=== PATIENT | female | born 1985 | race Caucasian/White ===

== ENCOUNTER 2019-08-27 08:00 | Emergency (ER) | payer MEDICARE, MEDICAID, SELFPAY ==
--- NOTE | ~2019-08-27 | XR_ITS ---
EXAMINATION: XR chest 2V DATE: 08/27/2019 09:04 INDICATION: Cough and wheezing TECHNIQUE: PA and lateral views of the chest are obtained. COMPARISON: 12/18/2016 FINDINGS: The lungs are free of acute opacities. There is no pleural effusion or pneumothorax. The ca rdiomediastinal silhouette is normal. The visualized bones and soft tissues are unremarkable. Surgica l clips in the right upper quadrant are likely from prior cholecystectomy. IMPRESSION: 1. No acute cardiopulmonary abnormality. Reviewed, dictated and finalized at location [facility]. [facility]
[2019-08-27 08:29] VITALS: BP 114/68; PULSE 106; RESP 16; TEMP 37.1; O2SAT 100
--- NOTE | 2019-08-27 08:55 | ED.URI ---
HPI - URI/Sore Throat General Chief Complaint: Upper Respiratory Infection Stated Complaint: Cold/Flu Time Seen by Provider: 08/27/19 08:38 Source: patient and RN notes reviewed Mode of arrival: ambulatory Limitations: no limitations History of Present Illness HPI Narrative: Patient presents today with a 2-day history of cough, Shortness of breath, Body aches, left back pain, rhinorrhea. Denies fever. Daughter was recently diagnosed with influenza B. She does have history of asthma and COPD and continues to smoke 0.5 packs/day. She uses albuterol and Symbicort. She has tried no [id number] medication for symptoms prior to arrival. She did not receive a flu vaccine. MD elicited complaint: cough Related Data Home Medications Medication Instructions Recorded Confirmed albuterol sulfate 2 puff INHALATION QID PRN 08/27/19 08/27/19 budesonide-formoterol [Symbicort] 2 puff INHALATION Q12H 08/27/19 08/27/19 Allergies Allergy/AdvReac Type Severity Reaction Status Date / Time divalproex sodium Allergy Unknown Rash Verified 08/27/19 08:55 lamotrigine Allergy Unknown Unknown Verified 08/27/19 08:55 phenobarbital Allergy Unknown Unknown Verified 08/27/19 08:55 Sulfa (Sulfonamide Allergy Unknown Rash Verified 08/27/19 08:55 Antibiotics) Review of Systems Review of Systems: Narrative: CONSTITUTIONAL: Denies fever, chills, or sweats.+Body aches EYES: Denies visual changes, redness, or discharge. ENT: Denies congestion, sore throat, or otalgia.+Rhinorrhea CARDIOVASCULAR: Denies chest pain, palpitations, or edema. RESPIRATORY: +Cough, shortness of breath GASTROINTESTINAL: Denies abdominal pain, nausea, vomiting, or diarrhea. GENITOURINARY: Denies dysuria or hematuria. SKIN: Denies rash, itching, or wounds. MUSCULOSKELETAL: Denies joint pain, or myalgia.+Left back pain NEUROLOGIC: Denies headache, numbness, tingling, or weakness. PSYCH: Denies depression or anxiety. [facility], [facility] Past Medical History Medical History (Updated 08/27/19 @ 09:30 by Brittney Klein, HAND SPRAY OPERATOR, ) Asthma COPD (chronic obstructive pulmonary disease) Family History Family History (Updated 03/08/14 @ 17:44 by DOCTOR UNKNOWN) Mother Cerebrovascular accident Acute myocardial infarction Other Asthma Depression Diabetes mellitus Family history of seizure disorder Hypertension Social History Social History Smoking status: Smoker, status unknown Second hand tobacco smoke exposure: Yes Smoking end date: 07/04/12 Alcohol intake: never Comments At time of signature, I have reviewed and agree with nursing past medical, surgical, social and family history unless otherwise noted. Please see nursing chart for further information. There is no relevant family history pertinent to the presenting complaint Exam Narrative: Exam Narrative: GENERAL: Well-appearing, well-nourished, and in no acute distress. HEAD: Normocephalic, atraumatic. EYES: EOMI. No redness or drainage. Conjunctivae normal. ENT: Mucous membranes pink and moist. Nares clear. No rhinorrhea. TMs normal bilaterally. Throat normal. Uvula midline. NECK: Normal AROM. Supple. No lymphadenopathy. CHEST: No respiratory distress. Diminished in the left lower lobe. Inspiratory and expiratory wheezes throughout. HEART: Regular rate and rhythm. No murmur appreciated. Normal peripheral pulses. EXTREMITIES: Normal range of motion. No edema. SKIN: Warm, dry, no rash. NEURO: No focal deficits. Alert and oriented x3. Gait steady. PSYCH: Normal affect. No signs of depression or anxiety. Course Course Emergency Course: Improved after Duoneb Vital Signs Vital signs: Vital Signs Temperature 98.8 F 08/27/19 08:29 Pulse Rate 106 H 08/27/19 08:29 Respiratory Rate 16 08/27/19 08:29 Blood Pressure 114/68 08/27/19 08:29 Pulse Oximetry 100 08/27/19 08:29 Temperature 98.8 F 08/27/19 08:29 Pulse Rate 106 H 08/27/19 08:29 Respiratory Rate 16
[2019-08-27] MEDS: ALBUTEROL SULFATE NEB 2.5 MG/3 ML INH INHALATION (09:07)
[2019-08-27] MEDS: IPRATROPIUM BR 0.02% INH SOLN 0.5 MG/2.5 ML VIAL INHALATION (09:07)
== END 2019-08-27 09:33 | disposition home or self-care (01) ==
PROVIDERS: Emergency Provider Nurse Practitioner
DX: J44.1 Chronic obstructive pulmonary disease with (acute) exacerbation (principal); J06.9 Acute upper respiratory infection, unspecified
CPT/HCPCS: 71046; 87804; 94640; 99213; G0463

== ENCOUNTER 2019-08-29 08:45 | Emergency (ER) | payer MEDICARE, MEDICAID, SELFPAY ==
[2019-08-29 08:58] VITALS: BP 119/75; PULSE 102; RESP 18; TEMP 37.3; O2SAT 99
--- NOTE | 2019-08-29 09:17 | ED.URI ---
HPI - URI/Sore Throat General Chief Complaint: Upper Respiratory Infection Stated Complaint: cough runny nose and aches Time Seen by Provider: 08/29/19 09:20 Source: patient, family and RN notes reviewed Mode of arrival: ambulatory Limitations: no limitations History of Present Illness HPI Narrative: 34 year old female who presents to [facility] care accompanied by family members with increased feeling of congestion and continued cough, Patient was seen on the and patient received steroids and refill of inhalers. Patient does admit to less shortness of breath and less wheezing since being on steroids but feels that she needs antibiotic for her upper respiratory symptoms which include sinus congestion and drainage. Patient has some scattered wheezing noted on auscultation denies any acute respiratory difficulty, SaO2 99% on room air. Patient continues to use tobacco daily but has decreased in amount patient states. MD elicited complaint: fever (Low-grade), cough, rhinorrhea and nasal congestion Pertinent past history: COPD and asthma Onset (ago): day(s) (3) Consistency: constant Severity: moderate Description of mucous: yellow Able to tolerate fluids by mouth: Yes Exacerbating factors: exertion Relieving factors: other (Inhalers have helped and steroids) Context: sick contacts Associated symptoms: fever (feverish), rhinorrhea, nasal congestion, cough, shortness of breath and other (Wheezing) Treatments prior to arrival: acetaminophen, ibuprofen and other (Inhalers and steroids) Related Data Home Medications Medication Instructions Recorded Confirmed albuterol sulfate 2 puff INHALATION QID PRN 08/27/19 08/30/19 budesonide-formoterol [Symbicort] 2 puff INHALATION Q12H 08/27/19 08/30/19 Allergies Allergy/AdvReac Type Severity Reaction Status Date / Time divalproex sodium Allergy Unknown Rash Verified 08/30/19 16:21 lamotrigine Allergy Unknown Unknown Verified 08/30/19 16:21 phenobarbital Allergy Unknown Unknown Verified 08/30/19 16:21 Sulfa (Sulfonamide Allergy Unknown Rash Verified 08/30/19 16:21 Antibiotics) Review of Systems Review of Systems: Narrative: CONSTITUTIONAL: reports feels feverish , chills, or sweats. EYES: Denies visual changes, redness, or discharge. ENT: Positive rhinorrhea, congestion,no sore throat, or otalgia. CARDIOVASCULAR: Denies chest pain, palpitations, or edema. RESPIRATORY: positive cough denies any acute dyspnea at this time. GASTROINTESTINAL: Denies abdominal pain, nausea, vomiting, or diarrhea. GENITOURINARY: Denies dysuria or hematuria. SKIN: Denies rash or itching. MUSCULOSKELETAL: Denies back pain, joint pain, or myalgia. NEUROLOGIC: Denies headache, numbness, or weakness. PSYCHIATRIC: Denies anxiety or depression. All systems reviewed & are unremarkable except as noted in HPI and below PMFSH Past Medical History Medical History Asthma COPD (chronic obstructive pulmonary disease) Family History Family History Mother Cerebrovascular accident Acute myocardial infarction Other Asthma Depression Diabetes mellitus Family history of seizure disorder Hypertension Social History Social History (Updated 08/31/19 @ 09:26 by Skyla Peralta NP) Smoking status: Current every day smoker Second hand tobacco smoke exposure: Yes Alcohol intake: never Living arrangements: with family Gender identity (if verbalized by the patient): Female Comments At time of signature, agree with nursing past medical, social history. There is no relevant family history pertinent to the presenting complaint Exam Narrative: Exam Narrative: GENERAL: Well-appearing, well-nourished, and in no acute distress.anxious HEAD: Normocephalic, atraumatic. EYES: PERRLA and EOMI. ENT: Naresred, clear rhinorrhea or epistaxis. Mucous membranes moist.TM's normal with good light reflex, throa
== END 2019-08-29 09:45 | disposition home or self-care (01) ==
PROVIDERS: Emergency Provider Registered Nurse
DX: J06.9 Acute upper respiratory infection, unspecified (principal); J44.1 Chronic obstructive pulmonary disease with (acute) exacerbation; F17.200 Nicotine dependence, unspecified, uncomplicated
CPT/HCPCS: 99213; G0463

== ENCOUNTER 2019-08-30 15:53 | Emergency (ER) | payer MEDICARE, MEDICAID, SELFPAY ==
--- NOTE | 2019-08-30 16:04 | ED.URI ---
HPI - URI/Sore Throat General Chief Complaint: Upper Respiratory Infection Stated Complaint: cough Time Seen by Provider: 08/30/19 16:40 Source: patient and RN notes reviewed Mode of arrival: ambulatory Limitations: no limitations History of Present Illness HPI Narrative: 34-year-old female presents for her third in as many days for concern for cough, wheezing. Reports she started a Z-Chepe yesterday, she is almost finished with prednisone that she was prescribed on the . She reports Z-Chepe is causing diarrhea. She reports she is been using her inhalers as prescribed. She denies any improvement in symptoms. She had a negative chest x-ray earlier this week. She had a negative flu swab earlier this week. She reports other symptoms such as rhinorrhea, nasal congestion, fever have resolved. MD elicited complaint: cough Related Data Home Medications Medication Instructions Recorded Confirmed albuterol sulfate 2 puff INHALATION QID PRN 08/27/19 08/30/19 budesonide-formoterol [Symbicort] 2 puff INHALATION Q12H 08/27/19 08/30/19 Allergies Allergy/AdvReac Type Severity Reaction Status Date / Time divalproex sodium Allergy Unknown Rash Verified 08/30/19 16:21 lamotrigine Allergy Unknown Unknown Verified 08/30/19 16:21 phenobarbital Allergy Unknown Unknown Verified 08/30/19 16:21 Sulfa (Sulfonamide Allergy Unknown Rash Verified 08/30/19 16:21 Antibiotics) Review of Systems Review of Systems: Narrative: CONSTITUTIONAL: Denies malaise, chills, sweats, or fever. EYES: Denies visual changes, redness, or discharge. ENT: Denies rhinorrhea, congestion, sinus pain, otalgia and sore throat. CARDIOVASCULAR: Denies chest pain, palpitations, or edema. RESPIRATORY: Reports cough, wheezing, occasional dyspnea. GASTROINTESTINAL: Denies abdominal pain, nausea, vomiting, diarrhea SKIN: Denies rash or itching. MUSCULOSKELETAL: Denies myalgia. NEUROLOGIC: Denies headache. All systems reviewed & are unremarkable except as noted in HPI and below PMFSH Social History Social History Smoking status: Smoker, status unknown Second hand tobacco smoke exposure: Yes Smoking end date: 07/04/12 Alcohol intake: never Comments At time of signature, agree with nursing past medical, surgical, social and family history. There is no relevant family history pertinent to the presenting complaint Exam Narrative: Exam Narrative: GENERAL: Well-appearing, well-nourished, and in no acute distress. HEAD: Normocephalic EYES: PERRLA, conjunctivae clear ENT: Nares clear, turbinates erythematous, clear discharge. Mucous membranes moist. TM pearly shirley with dull light reflex bilaterally; no tragal tenderness. Oropharynx not erythematous without lesions. Tonsils not enlarged and without exudate, no drooling, no hoarseness, no trismus. NECK: Supple. No lymphadenopathy CHEST: Scattered inspiratory and expiratory wheeze, aeration fair to poor, breath sounds equal. Norhonchi, rales, or stridor. No respiratory distress, speaks in full sentences. HEART: Regular rate and rhythm. No murmur heard. SKIN: Warm, dry, no rash. NEURO: Alert and oriented x3. PSYCH: Normal mood and affect Course Course Emergency Course: Discussed with patient expected side effects of Z-Chepe and advised on ways to lessen or prevent diarrhea while taking antibiotics. Advised patient to finish Z-Chepe. Patient is aware of diagnosis, understands and agrees to treatment plan. Anticipatory guidance given. Patient agrees to follow-up as directed and is aware of reasons to seek care at the emergency department. Portions of this record may have been created with voice recognition software Reevaluation(s) Reevaluation #1: Aeration improved, aeration good, wheezing improved, scattered expiratory wheeze. Date: 08/30/19 Time: 17:30 Vital Signs Vital signs: Vital Signs Temperature 98.0 F 08/30/19 16:05 Pulse Rate 100 08/30/19 16:05 Respirator
[2019-08-30 16:05] VITALS: BP 136/66; PULSE 100; RESP 18; TEMP 36.7; O2SAT 98
[2019-08-30] MEDS: ALBUTEROL SULFATE NEB 2.5 MG/3 ML INH INHALATION (17:04)
[2019-08-30] MEDS: IPRATROPIUM BR 0.02% INH SOLN 0.5 MG/2.5 ML VIAL INHALATION (17:04)
[2019-08-30 17:25] VITALS: RESP 16; TEMP 37.5; O2SAT 97
== END 2019-08-30 17:40 | disposition home or self-care (01) ==
PROVIDERS: Emergency Provider Nurse Practitioner
DX: J44.1 Chronic obstructive pulmonary disease with (acute) exacerbation (principal)
CPT/HCPCS: 94640; 99213; G0463

== ENCOUNTER 2019-09-02 18:21 | Emergency (ER) | payer MEDICARE, MEDICAID, SELFPAY ==
--- NOTE | 2019-09-02 19:25 | PC.NURSE ---
1914 pt not in waiting room when name called. pts in waiting room state she left.
== END 2019-09-02 19:15 | disposition left against medical advice (07) ==
PROVIDERS: Emergency Provider Registered Nurse
DX: Z53.21 Procedure and treatment not carried out due to patient leaving prior to being seen by health care provider (principal)
CPT/HCPCS: 99199

== ENCOUNTER 2019-09-25 09:54 | Emergency (ER) | payer MEDICARE, MEDICAID, SELFPAY ==
[2019-09-25 09:54] VITALS: BP 130/89; PULSE 118; RESP 16; TEMP 37.5; O2SAT 98
--- NOTE | 2019-09-25 10:17 | ED.URI ---
HPI - URI/Sore Throat General Chief Complaint: Upper Respiratory Infection Stated Complaint: Sore throat/Headache Time Seen by Provider: 09/25/19 10:17 Source: patient and RN notes reviewed Mode of arrival: ambulatory Limitations: no limitations History of Present Illness HPI Narrative: 34 year old female accompanied by 2 children with complaints of sore throat, ear pain,clear nasal drainage and headache for 4 days. Patient states that son tested positive for strep 3 days ago so has had positive exposure to strep. Patient states that she has taken some Benadryl for her symptoms. Patient denies any known fevers, chills or sweats, does have history of asthma and COPD with no increase in cough or any tightness to chest uses daily inhalers as prescribed but continues to use tobacco daily. Patient rates her pain as 8/10 with increasing pain with swallowing and swollen lymph glands in her neck. MD elicited complaint: sore throat Pertinent past history: COPD and asthma Onset (ago): day(s) (4) Consistency: progressively worsening Severity: moderate Pain scale (0-10): 8 Description of mucous: clear Able to tolerate fluids by mouth: Yes Exacerbating factors: swallowing Relieving factors: nothing Context: sick contacts Associated symptoms: headache, rhinorrhea, sore throat and other (glands swelling to neck) Treatments prior to arrival: other (Benadryl) Related Data Home Medications Medication Instructions Recorded Confirmed albuterol sulfate 2 puff INHALATION QID PRN 08/27/19 09/25/19 budesonide-formoterol [Symbicort] 2 puff INHALATION Q12H 08/27/19 09/25/19 Allergies Allergy/AdvReac Type Severity Reaction Status Date / Time divalproex sodium Allergy Unknown Rash Verified 09/25/19 10:00 lamotrigine Allergy Unknown Unknown Verified 09/25/19 10:00 phenobarbital Allergy Unknown Unknown Verified 09/25/19 10:00 Sulfa (Sulfonamide Allergy Unknown Rash Verified 09/25/19 10:00 Antibiotics) Review of Systems Review of Systems: Narrative: CONSTITUTIONAL: Denies fever, chills, or sweats. EYES: Denies visual changes, redness, or discharge. ENT: positive rhinorrhea, congestion, sore throat, or otalgia. CARDIOVASCULAR: Denies chest pain, palpitations, or edema. RESPIRATORY: Denies acute cough or dyspnea. GASTROINTESTINAL: Denies abdominal pain, nausea, vomiting, or diarrhea. GENITOURINARY: Denies dysuria or hematuria. SKIN: Denies rash or itching. MUSCULOSKELETAL: Denies back pain, joint pain, or myalgia. NEUROLOGIC: Positive headache,no numbness, or weakness. PSYCHIATRIC: Denies anxiety or depression. All systems reviewed & are unremarkable except as noted in HPI and below PMFSH Social History Social History (Updated 09/27/19 @ 09:28 by Skyla Peralta NP) Smoking packs per day: 1 Smoking cigarettes per day: 20.0 Years smoked: 10 Smoking pack-years: 10.00 Smoking status: Current every day smoker Second hand tobacco smoke exposure: Yes Alcohol intake: never Living arrangements: with family Gender identity (if verbalized by the patient): Female Comments At time of signature, agree with nursing past medical, social history. There is no relevant family history pertinent to the presenting complaint Exam Narrative: Exam Narrative: GENERAL: Well-appearing, well-nourished, and in no acute distress. HEAD: Normocephalic, atraumatic. EYES: PERRLA and EOMI. ENT: Nares red, clear rhinorrhea no epistaxis. Mucous membranes moist.TM's normal with good light reflex, throat red with tonsils enlarged no lesions or exudates, uvula midline, post nasal drainage noted NECK: Supple.lymphadenopathy CHEST: Clear to auscultation.no wheezing noted, No respiratory distress.SAO2 98% on room air HEART: Regular rate and rhythm. No murmur heard. Normal peripheral pulses. ABDOMEN: Soft, nontender, nondistended, normal active bowel sounds. EXTREMITIES: Normal range of motion. No edema. SKIN: Warm, dry, no rash. NEURO: No focal deficits. Alert and
== END 2019-09-25 11:00 | disposition home or self-care (01) ==
PROVIDERS: Emergency Provider Registered Nurse
DX: J03.90 Acute tonsillitis, unspecified (principal); F17.200 Nicotine dependence, unspecified, uncomplicated; J45.909 Unspecified asthma, uncomplicated
CPT/HCPCS: 87081; 87880; 99213; G0463

== ENCOUNTER 2021-04-30 08:32 | Emergency (ER) | payer MEDICARE, SELFPAY ==
[2021-04-30 08:38] VITALS: BP 109/70; PULSE 94; RESP 20; TEMP 36.9; O2SAT 96
[2021-04-30] MEDS: predniSONE 10 MG TABLET 50 MG PO (09:01)
[2021-04-30] MEDS: IPRATROPIUM BR 0.02% INH SOLN 0.5 MG/2.5 ML VIAL INHALATION (09:03)
[2021-04-30] MEDS: ALBUTEROL SULFATE NEB 2.5 MG/3 ML INH INHALATION (09:03)
--- NOTE | 2021-04-30 09:30 | ED.GENADULT ---
HPI - General Adult General Chief complaint: Upper Respiratory Infection Stated complaint: ASthma issues Time Seen by Provider: 04/30/21 09:13 Source: patient and RN notes reviewed Mode of arrival: ambulatory Limitations: no limitations History of Present Illness HPI narrative: Patient presents today with a 2 to 3-day history of asthma exacerbation. Patient has asthma and COPD. Reports cough and shortness of breath. Denies any additional sick symptoms to include fever, congestion, sore throat, rhinorrhea, headache, body aches or fatigue. She has been using her Symbicort and albuterol inhaler as well as albuterol nebulizer treatments. Her PCP has recently abruptly quit the office, and she has not been able to get a hold of anyone there. MD complaint: Cough, shortness of breath/asthma exacerbation Related Data Home Medications Medication Instructions Recorded Confirmed albuterol sulfate 2 puff INHALATION QID PRN 08/27/19 04/30/21 budesonide-formoterol [Symbicort] 2 puff INHALATION Q12H 08/27/19 04/30/21 Allergies Allergy/AdvReac Type Severity Reaction Status Date / Time divalproex sodium Allergy Unknown Rash Verified 04/30/21 08:48 lamotrigine Allergy Unknown Unknown Verified 04/30/21 08:48 phenobarbital Allergy Unknown Unknown Verified 04/30/21 08:48 Sulfa (Sulfonamide Allergy Unknown Rash Verified 04/30/21 08:48 Antibiotics) Review of Systems Review of Systems: CONSTITUTIONAL: Denies body aches, fever, chills, or sweats. EYES: Denies visual changes, redness, or discharge. ENT: Denies rhinorrhea, congestion, sore throat, or otalgia. CARDIOVASCULAR: Denies chest pain, palpitations, or edema. RESPIRATORY:, Cough, shortness of breath GASTROINTESTINAL: Denies abdominal pain, nausea, vomiting, or diarrhea. GENITOURINARY: Denies dysuria or hematuria. SKIN: Denies rash, itching, or wounds. MUSCULOSKELETAL: Denies back pain, joint pain, or myalgia. NEUROLOGIC: Denies headache, numbness, tingling, or weakness. PSYCH: Denies depression or anxiety. [facility] Past Medical History Medical History (Updated 04/30/21 @ 09:36 by Brittney Klein, HEALTHCARE MANAGER, ) Asthma COPD (chronic obstructive pulmonary disease) Family History Family History Mother Cerebrovascular accident Acute myocardial infarction Other Asthma Depression Diabetes mellitus Family history of seizure disorder Hypertension Social History Social History Smoking packs per day: 1 Smoking cigarettes per day: 20.0 Years smoked: 10 Smoking pack-years: 10.00 Smoking status: Current every day smoker Second hand tobacco smoke exposure: Yes Alcohol intake: never Gender identity (if verbalized by the patient): Female Comments At time of signature, I have reviewed and agree with nursing past medical, surgical, social and family history unless otherwise noted. Please see nursing chart for further information. There is no relevant family history pertinent to the presenting complaint Exam Narrative: GENERAL: Well-appearing, well-nourished, and in no acute distress. HEAD: Normocephalic, atraumatic. EYES: EOMI. No redness or drainage. Conjunctivae normal. ENT: Mucous membranes pink and moist. NECK: Normal AROM. Supple. No lymphadenopathy. CHEST: No respiratory distress. Inspiratory and expiratory wheezes throughout. HEART: Regular rate and rhythm. No murmur appreciated. Normal peripheral pulses. EXTREMITIES: Normal range of motion. No edema. SKIN: Warm, dry, no rash. Capillary refill normal. Normal skin turgor. NEURO: No focal deficits. Alert and oriented x3. Gait steady. PSYCH: Normal affect. No signs of depression or anxiety. Course Vital Signs Vital signs: Vital Signs Temperature 98.5 F 04/30/21 08:38 Pulse Rate 94 04/30/21 08:38 Respiratory Rate 20 04/30/21 08:38 Blood Pressure 109/70
== END 2021-04-30 09:42 | disposition home or self-care (01) ==
PROVIDERS: Emergency Provider Nurse Practitioner; PCP Family Medicine
DX: J45.901 Unspecified asthma with (acute) exacerbation (principal); F17.210 Nicotine dependence, cigarettes, uncomplicated
CPT/HCPCS: 99213; G0463; J7512

== ENCOUNTER 2021-12-23 14:44 | Emergency (ER) | payer OTHER, SELFPAY ==
[2021-12-23 14:55] VITALS: BP 116/83; PULSE 89; RESP 20; TEMP 36.6; O2SAT 98
--- NOTE | 2021-12-23 14:59 | ED.URI ---
HPI - URI/Sore Throat General Chief Complaint: Upper Respiratory Infection Stated Complaint: Shortness of Breath Time Seen by Provider: 12/23/21 14:54 Source: patient and RN notes reviewed Mode of arrival: ambulatory Limitations: no limitations History of Present Illness HPI Narrative: 36-year-old female with history of asthma presents with concern for shortness of breath. Reports history of asthma and she has been without her Symbicort or albuterol for 6 days because she lost her doctor. Reports today she felt short of breath with conversation so she sought care. She denies any upper respiratory infection such as rhinorrhea, nasal congestion, sore throat, fever. MD elicited complaint: other (Asthma flare) Related Data Home Medications Medication Instructions Recorded Confirmed albuterol sulfate 90 mcg/actuation 2 inh inhalation Q4-6H PRN sob 12/23/21 12/23/21 aerosol inhaler budesonide-formoterol HFA 160 2 inh inhalation DAILY 12/23/21 12/23/21 mcg-4.5 mcg/actuation aerosol inhaler (Symbicort) Allergies Allergy/AdvReac Type Severity Reaction Status Date / Time divalproex sodium Allergy Unknown Rash Verified 12/23/21 14:56 lamotrigine Allergy Unknown Unknown Verified 12/23/21 14:56 phenobarbital Allergy Unknown Unknown Verified 12/23/21 14:56 Sulfa (Sulfonamide Allergy Unknown Rash Verified 12/23/21 14:56 Antibiotics) Review of Systems Review of Systems: CONSTITUTIONAL: Denies malaise, chills, sweats, or fever. EYES: Denies visual changes, redness, or discharge. ENT: Denies rhinorrhea, congestion, sinus pain, otalgia and sore throat. CARDIOVASCULAR: Denies chest pain, palpitations, or edema. RESPIRATORY: Reports cough, dyspnea. GASTROINTESTINAL: Denies abdominal pain, nausea, vomiting, diarrhea SKIN: Denies rash or itching. MUSCULOSKELETAL: Denies myalgia. NEUROLOGIC: Denies headache. All systems reviewed & are unremarkable except as noted in HPI and below PMFSH Past Medical History Medical History (Updated 12/23/21 @ 15:08 by Nicole Espinoza NP) Asthma COPD (chronic obstructive pulmonary disease) Family History Family History Mother Cerebrovascular accident Acute myocardial infarction Other Asthma Depression Diabetes mellitus Family history of seizure disorder Hypertension Social History Social History Smoking packs per day: 1 Smoking cigarettes per day: 20.0 Years smoked: 10 Smoking pack-years: 10.00 Smoking status: Current every day smoker Second hand tobacco smoke exposure: Yes Alcohol intake: never Gender identity (if verbalized by the patient): Female Comments At time of signature, agree with nursing past medical, surgical, social and family history. There is no relevant family history pertinent to the presenting complaint Exam Narrative: GENERAL: Well-appearing, well-nourished, and in no acute distress. HEAD: Normocephalic EYES: PERRLA, conjunctivae clear ENT: Nares clear. Mucous membranes moist. CHEST: Inspiratory and expiratory wheeze, aeration fair to poor. Wheezing audible. Respiratory distress, speaks in full sentences. HEART: Regular rate and rhythm. No murmur heard. SKIN: Warm, dry, no rash. NEURO: Alert and oriented x3. PSYCH: Normal mood and affect Course Course Emergency Course: Patient is aware of diagnosis, understands and agrees to treatment plan. Anticipatory guidance given. Patient agrees to follow-up as directed and is aware of reasons to seek care at the emergency department. Portions of this record may have been created with voice recognition software Level of Care: Express Care Visit Reevaluation(s) Reevaluation #1: Lung sounds greatly improved, no wheezing, aeration good throughout Date: 12/23/21 Time: 15:34 Vital Signs Vital signs: Reviewed. MDM - URI/Sore Throat MDM Narrative Medical decisio
[2021-12-23] MEDS: predniSONE 20 MG TABLET 60 MG PO (15:16)
[2021-12-23] MEDS: ALBUTEROL SULFATE NEB 2.5 MG/3 ML INH INHALATION (15:17)
[2021-12-23] MEDS: IPRATROPIUM BR 0.02% INH SOLN 0.5 MG/2.5 ML VIAL INHALATION (15:18)
[2021-12-23 15:40] VITALS: PULSE 85; RESP 18; O2SAT 98
== END 2021-12-23 15:40 | disposition home or self-care (01) ==
PROVIDERS: Emergency Provider Nurse Practitioner
DX: J44.1 Chronic obstructive pulmonary disease with (acute) exacerbation (principal); F17.210 Nicotine dependence, cigarettes, uncomplicated
CPT/HCPCS: 99213; G0463; J7512

== ENCOUNTER 2022-02-17 11:54 | Emergency (ER) | payer OTHER, SELFPAY ==
[2022-02-17 11:57] VITALS: BP 145/73; PULSE 103; RESP 20; TEMP 37.2; O2SAT 99
--- NOTE | 2022-02-17 12:13 | ED.URI ---
HPI - URI/Sore Throat General Chief Complaint: Shortness of Breath/Dyspnea Stated Complaint: ASthma Flair Source: patient Mode of arrival: ambulatory Limitations: no limitations History of Present Illness HPI Narrative: 37-year-old female with a history of asthma presented for complaint of asthma exacerbation since last night. She states she started with wheezing and chest tightness, has been out of her rescue inhaler and budesonide and cannot be seen by PCP until April. She denies sick contacts or other complaints. Related Data Allergies Allergy/AdvReac Type Severity Reaction Status Date / Time divalproex sodium Allergy Unknown Rash Verified 02/17/22 12:13 lamotrigine Allergy Unknown Unknown Verified 02/17/22 12:13 phenobarbital Allergy Unknown Unknown Verified 02/17/22 12:13 Sulfa (Sulfonamide Allergy Unknown Rash Verified 02/17/22 12:13 Antibiotics) Review of Systems Review of Systems: CONSTITUTIONAL: Denies body aches, fever, chills, or sweats. EYES: Denies visual changes, redness, or discharge. ENT: Denies rhinorrhea, congestion, sore throat, or otalgia. CARDIOVASCULAR: Denies chest pain, palpitations, or edema. RESPIRATORY: Reports cough, sob, wheezing. GASTROINTESTINAL: Denies abdominal pain, nausea, vomiting, or diarrhea. GENITOURINARY: Denies dysuria or hematuria. SKIN: Denies rash, itching, or wounds. MUSCULOSKELETAL: Denies back pain, joint pain, or myalgia. NEUROLOGIC: Denies headache, numbness, tingling, or weakness. PSYCH: Denies depression or anxiety. All systems reviewed & are unremarkable except as noted in HPI and below PMFSH Past Medical History Medical History (Updated 02/17/22 @ 12:25 by Eileen Hill, SERGEY) Asthma COPD (chronic obstructive pulmonary disease) Family History Family History Mother Cerebrovascular accident Acute myocardial infarction Other Asthma Depression Diabetes mellitus Family history of seizure disorder Hypertension Social History Social History Smoking packs per day: 1 Smoking cigarettes per day: 20.0 Years smoked: 10 Smoking pack-years: 10.00 Smoking status: Current every day smoker Second hand tobacco smoke exposure: Yes Alcohol intake: never Gender identity (if verbalized by the patient): Female Comments At time of signature, I have reviewed and agree with nursing past medical, surgical, social and family history unless otherwise noted. Please see nursing chart for further information. There is no relevant family history pertinent to the presenting complaint Exam Narrative: GENERAL: Well-appearing, in no acute distress. EYES: EOMI. No redness or drainage. Conjunctivae normal. ENT: Mucous membranes pink and moist. No rhinorrhea. CHEST: No respiratory distress. Speaks in full sentences. Insp/exp wheezing to all nava. HEART: Regular rate and rhythm. No murmur appreciated. ABDOMEN: Soft, nontender, nondistended, normal active bowel sounds. EXTREMITIES: Normal range of motion. No edema. SKIN: Warm, dry, no rash. Capillary refill normal. Normal skin turgor. NEURO: Alert and oriented x3. Gait steady. PSYCH: Normal affect. Course Course Emergency Course: Patient is aware of diagnosis, understands and agrees to treatment plan. Anticipatory guidance given. Patient agrees to follow-up as directed and is aware of reasons to seek care at the emergency department. Portions of this record may have been created with voice recognition software Level of Care: Express Care Visit Vital Signs Vital signs: Vital Signs Temperature 98.9 F 02/17/22 11:57 Pulse Rate 103 H 02/17/22 11:57 Respiratory Rate 20 02/17/22 11:57 Blood Pressure 145/73 H 02/17/22 11:57 Pulse Oximetry 99 02/17/22 11:57 Oxygen Delivery Room Air 02/17/22 11:57 Temperature 98.9 F 02/17/22 11:57 Pulse Rate 1
[2022-02-17] MEDS: ALBUTEROL SULFATE NEB 2.5 MG/3 ML INH INHALATION (12:29)
[2022-02-17] MEDS: IPRATROPIUM BR 0.02% INH SOLN 0.5 MG/2.5 ML VIAL INHALATION (12:30)
[2022-02-17] MEDS: methylPREDNISolone ACETATE 80 MG/ML VIAL IM (13:04)
== END 2022-02-17 13:16 | disposition home or self-care (01) ==
PROVIDERS: Emergency Provider Nurse Practitioner Family
DX: J45.901 Unspecified asthma with (acute) exacerbation (principal); J44.9 Chronic obstructive pulmonary disease, unspecified; F17.210 Nicotine dependence, cigarettes, uncomplicated
CPT/HCPCS: 94640; 96372; 99213; G0463; J1040

== ENCOUNTER 2022-03-29 12:39 | Emergency (ER) | payer OTHER, SELFPAY ==
[2022-03-29 12:54] VITALS: BP 122/82; PULSE 101; RESP 20; TEMP 36.8; O2SAT 97
--- NOTE | 2022-03-29 13:17 | ED.URI ---
HPI - URI/Sore Throat General Chief Complaint: Upper Respiratory Infection Stated Complaint: asthma attack Time Seen by Provider: 03/29/22 13:18 Source: patient, RN notes reviewed and old records reviewed Mode of arrival: ambulatory Limitations: no limitations History of Present Illness HPI Narrative: 37-year-old female presents to [facility] care with complaints of being out of her inhaler for the past 2 to 3 days reports has appointment with new provider on April 13. Patient has scattered wheezing throughout lung nava with patient verbalizing shortness of breath. Patient denies any nasal congestion, drainage, sore throat or any fevers.Patient reports that she has had COVID vaccinations and had COVID 2 months ago. patient continues to smoke cigarettes daily reports she is down to 5 cigarettes daily. MD elicited complaint: cough and other (Expiratory wheezing throughout inspiratory and expiratory) Pertinent past history: asthma Related Data Allergies Allergy/AdvReac Type Severity Reaction Status Date / Time divalproex sodium Allergy Unknown Rash Verified 02/17/22 12:13 lamotrigine Allergy Unknown Unknown Verified 02/17/22 12:13 phenobarbital Allergy Unknown Unknown Verified 02/17/22 12:13 Sulfa (Sulfonamide Allergy Unknown Rash Verified 02/17/22 12:13 Antibiotics) Review of Systems Review of Systems: CONSTITUTIONAL: Denies fever, chills, or sweats. EYES: Denies visual changes, redness, or discharge. ENT: Denies rhinorrhea, congestion, sore throat, or otalgia. CARDIOVASCULAR: Denies chest pain, palpitations, or edema, reports tightness with breathing RESPIRATORY: Positive for cough and dyspnea. GASTROINTESTINAL: Denies abdominal pain, nausea, vomiting, or diarrhea. GENITOURINARY: Denies dysuria or hematuria. SKIN: Denies rash or itching. MUSCULOSKELETAL: Denies back pain, joint pain, or myalgia. NEUROLOGIC: Denies headache, numbness, or weakness. PSYCHIATRIC: Denies anxiety or depression. All systems reviewed & are unremarkable except as noted in HPI and below [facility] Past Medical History Medical History (Updated 03/30/22 @ 00:01 by Francisca Scott) Asthma COPD (chronic obstructive pulmonary disease) Surgical History Surgical History (Updated 03/31/22 @ 08:26 by Skyla Peralta NP) History of cholecystectomy Family History Family History Mother Cerebrovascular accident Acute myocardial infarction Other Asthma Depression Diabetes mellitus Family history of seizure disorder Hypertension Social History Social History Smoking packs per day: 1 Smoking cigarettes per day: 20.0 Years smoked: 10 Smoking pack-years: 10.00 Smoking status: Current every day smoker Second hand tobacco smoke exposure: Yes Alcohol intake: never Gender identity (if verbalized by the patient): Female Comments At time of signature, agree with nursing past medical, surgical, social and family history. There is no relevant family history pertinent to the presenting complaint Exam Narrative: GENERAL: Well-appearing, well-nourished, and in mild acute distress. HEAD: Normocephalic, atraumatic. EYES: PERRLA and EOMI. ENT: Nares clear, no rhinorrhea or epistaxis. Mucous membranes moist.TM's normal with good light reflex, throat pink with no lesions exudates or tonsil swelling NECK: Supple. no lymphadenopathy CHEST: Scattered wheezing throughout lung nava. No acute respiratory distress.SAO2 97% on room air HEART: Regular rate and rhythm. No murmur heard. Normal peripheral pulses. ABDOMEN: Soft, nontender, nondistended, normal active bowel sounds. EXTREMITIES: Normal range of motion. No edema. SKIN: Warm, dry, no rash. NEURO: No focal deficits. Alert and oriented x3. Course Course Level of Care: Express Care Visit Vital Signs Vital signs: Vital Signs Temperature 36.8 C 03/29/22 12:54
[2022-03-29] MEDS: IPRATROPIUM BR 0.02% INH SOLN 0.5 MG/2.5 ML VIAL INHALATION (13:24)
[2022-03-29] MEDS: ALBUTEROL SULFATE NEB 2.5 MG/3 ML INH INHALATION (13:24)
[2022-03-29 14:15] VITALS: PULSE 95; RESP 18; O2SAT 97
== END 2022-03-29 14:28 | disposition home or self-care (01) ==
PROVIDERS: Emergency Provider Registered Nurse
DX: J45.901 Unspecified asthma with (acute) exacerbation (principal); F17.210 Nicotine dependence, cigarettes, uncomplicated; J44.9 Chronic obstructive pulmonary disease, unspecified; Z86.16 Personal history of COVID-19
CPT/HCPCS: 94640; 99213; G0463

== ENCOUNTER 2022-05-02 10:13 | Emergency (ER) | payer OTHER, SELFPAY ==
[2022-05-02 10:20] VITALS: BP 130/62; PULSE 100; RESP 24; TEMP 36.7; O2SAT 96
[2022-05-02 10:36] VITALS: BP 130/62; PULSE 100; RESP 24; TEMP 36.7; O2SAT 96
--- NOTE | 2022-05-02 10:40 | ED.URI ---
HPI - URI/Sore Throat General Chief Complaint: Upper Respiratory Infection Stated Complaint: Asthma Time Seen by Provider: 05/02/22 10:30 Source: patient, RN notes reviewed and old records reviewed Mode of arrival: ambulatory Limitations: no limitations History of Present Illness HPI Narrative: 37 year old female who presents to [facility] with complaints of shortness of breath increased wheezing for the past 2 days patient states she has ran out of her inhalers and needs a refill. She was supposed to have a new physician's appointment and they called her the day before her appointment and told her that they do not take her insurance. Patient denies any fevers chills or sweats, denies and any nasal congestion or drainage no increased cough.Patient reports back muscles sore from wheezing and cough request steroids. MD elicited complaint: cough and other (Wheezing out of inhalers) Pertinent past history: asthma Onset (ago): day(s) (2) Able to tolerate fluids by mouth: Yes Exacerbating factors: exertion Related Data Allergies Allergy/AdvReac Type Severity Reaction Status Date / Time divalproex sodium Allergy Unknown Rash Verified 05/02/22 10:34 lamotrigine Allergy Unknown Unknown Verified 05/02/22 10:34 phenobarbital Allergy Unknown Unknown Verified 05/02/22 10:34 Sulfa (Sulfonamide Allergy Unknown Rash Verified 05/02/22 10:34 Antibiotics) Review of Systems Review of Systems: CONSTITUTIONAL: Denies malaise, chills, sweats, or fever. EYES: Denies visual changes, redness, or discharge. ENT: Denies rhinorrhea, congestion, sinus pain, otalgia and sore throat. CARDIOVASCULAR: Denies chest pain, palpitations, or edema. RESPIRATORY: Reports cough.?reports dyspnea and wheezing GASTROINTESTINAL: Denies abdominal pain, nausea, vomiting, diarrhea SKIN: Denies rash or itching. MUSCULOSKELETAL:Reports back muscles sore from breathing and cough NEUROLOGIC: Denies headache. All systems reviewed & are unremarkable except as noted in HPI and below PMFSH Past Medical History Medical History (Updated 05/03/22 @ 00:00 by Francisca Scott) Asthma COPD (chronic obstructive pulmonary disease) Surgical History Surgical History (Updated 03/31/22 @ 08:26 by Skyla Peralta NP) History of cholecystectomy Family History Family History Mother Cerebrovascular accident Acute myocardial infarction Other Asthma Depression Diabetes mellitus Family history of seizure disorder Hypertension Social History Social History Smoking packs per day: 1 Smoking cigarettes per day: 20.0 Years smoked: 10 Smoking pack-years: 10.00 Smoking status: Current every day smoker Second hand tobacco smoke exposure: Yes Alcohol intake: never Gender identity (if verbalized by the patient): Female Comments At time of signature, agree with nursing past medical, surgical, social and family history. There is no relevant family history pertinent to the presenting complaint Exam Narrative: GENERAL: Well-appearing, well-nourished, and in no acute distress. HEAD: Normocephalic EYES: PERRLA, conjunctivae clear ENT: Nares clear, turbinates edematous and erythematous, clear discharge. Mucous membranes moist. TM pearly shirley with dull light reflex bilaterally; no tragal tenderness. Oropharynx erythematous without lesions. Tonsils not enlarged and without exudate, no drooling, no hoarseness, no trismus, uvula midline. NECK: Supple. No lymphadenopathy CHEST: Scattered wheezing on auscultation, breath sounds equal.positive for wheezing,no rhonchi, rales, or stridor. No respiratory distress, speaks in full sentences.SAO2 96% on room air, cough noted HEART: Regular rate and rhythm. No murmur heard. SKIN: Warm, dry, no rash. NEURO: Alert and oriented x3. PSYCH: Normal mood and affect Course Cou
[2022-05-02] MEDS: ALBUTEROL SULFATE NEB 2.5 MG/3 ML INH INHALATION (10:44)
[2022-05-02] MEDS: IPRATROPIUM BR 0.02% INH SOLN 0.5 MG/2.5 ML VIAL INHALATION (10:44)
== END 2022-05-02 11:25 | disposition home or self-care (01) ==
PROVIDERS: Emergency Provider Registered Nurse
DX: J45.901 Unspecified asthma with (acute) exacerbation (principal); F17.210 Nicotine dependence, cigarettes, uncomplicated; J44.9 Chronic obstructive pulmonary disease, unspecified
CPT/HCPCS: 94640; 99213; G0463

== ENCOUNTER 2022-05-15 15:57 | Emergency (ER) | payer MEDICARE, MEDICAID, SELFPAY ==
--- NOTE | 2022-05-15 16:02 | ED.URI ---
HPI - URI/Sore Throat General Chief Complaint: Upper Respiratory Infection Stated Complaint: loss of voice Time Seen by Provider: 05/15/22 16:18 Source: patient, RN notes reviewed and old records reviewed Mode of arrival: ambulatory Limitations: no limitations History of Present Illness HPI Narrative: [age] year female presents to the [facility] with loss of voice since being diagnosed with influenza a and COVID 8 days ago. Denies any pain. States it feels like there is something in her throat. Patient has a history of asthma. Has had multiple rounds of steroids over the last couple months. Long discussion with patient on risk of chronic steroid use especially high doses. Discussed alternative treatments of allergy medication, Flonase, decongestants. Related Data Allergies Allergy/AdvReac Type Severity Reaction Status Date / Time divalproex sodium Allergy Unknown Rash Verified 05/15/22 16:13 lamotrigine Allergy Unknown Unknown Verified 05/15/22 16:13 phenobarbital Allergy Unknown Unknown Verified 05/15/22 16:13 Sulfa (Sulfonamide Allergy Unknown Rash Verified 05/15/22 16:13 Antibiotics) Review of Systems Review of Systems: All systems reviewed & are unremarkable except as noted in HPI and below Constitutional: Constitutional: Reports no additional constitutional complaints, Denies chills and Denies fever(s) Eyes: Eyes: Reports no additional eye complaints ENT: Reports as per HPI ( Laryngitis) and Denies sore throat Cardiovascular: Cardiovascular: Reports no additional cardiovascular complaints Respiratory: Respiratory: Reports no additional respiratory complaints Gastrointestinal: Gastrointestinal: Reports no additional gastrointestinal complaints Musculoskeletal: Musculoskeletal: Reports no additional musculoskeletal complaints Integumentary/Breasts: Skin/Breast: Reports system reviewed and no additional complaints, except as docu Neurologic: Reports system reviewed and no additional complaints, except as documented Psychiatric: Psychiatric: Reports no additional psychiatric complaints Allergic/Immunologic: Allergic/Immunologic: Reports no additional allergic/immunologic complaints [facility] Past Medical History Medical History Asthma COPD (chronic obstructive pulmonary disease) Surgical History Surgical History History of cholecystectomy Family History Family History Mother Cerebrovascular accident Acute myocardial infarction Other Asthma Depression Diabetes mellitus Family history of seizure disorder Hypertension Social History Social History Smoking packs per day: 1 Smoking cigarettes per day: 20.0 Years smoked: 10 Smoking pack-years: 10.00 Smoking status: Current every day smoker Second hand tobacco smoke exposure: Yes Alcohol intake: never Gender identity (if verbalized by the patient): Female Comments At the time of my signature, I reviewed and agree with the nursing past medical, surgical, social, and family history. There is no relevant family history pertinent to the patient complaint. Exam Const: General: healthy appearing, comfortable, no acute distress, well developed, alert and well nourished Nutritional Appearance: well nourished Orientation/consciousness: patient oriented x3 Limitations: no limitations HENMT: Head: normal to inspection Ears: external ears normal, TM's normal bilaterally and EAC's normal Face/Nose/Sinus: Normal external nose present and Normal nares present Face and sinus: normal facial exam and sinuses nontender Mouth: Yes Normal oral and palatal mucosa present, Yes lip normal and Yes tongue normal Throat: posterior oropharynx normal, uvula midline and postnasal drainage Eyes: General: appearance normal, bot
[2022-05-15 16:10] VITALS: BP 141/89; PULSE 90; RESP 20; TEMP 36.8; O2SAT 98
== END 2022-05-15 16:40 | disposition home or self-care (01) ==
PROVIDERS: Emergency Provider Nurse Practitioner
DX: J04.0 Acute laryngitis (principal); R09.82 Postnasal drip; F17.210 Nicotine dependence, cigarettes, uncomplicated; J44.9 Chronic obstructive pulmonary disease, unspecified; Z86.16 Personal history of COVID-19
CPT/HCPCS: 99213; G0463

== ENCOUNTER 2022-07-14 14:14 | Emergency (ER) | payer MEDICARE, MEDICAID, SELFPAY ==
--- NOTE | 2022-07-14 14:20 | ED.SOB ---
HPI - SOB/Dyspnea General Chief Complaint: Asthma Stated Complaint: Shortness of Breath Time Seen by Provider: 07/14/22 14:30 Source: patient Mode of arrival: ambulatory Limitations: no limitations History of Present Illness HPI Narrative: Teri is a 37-year-old female patient presenting to the clinic today with complaints of nonproductive cough and shortness of breath x2 days. She reports she has history of asthma and has been out of her albuterol inhaler for 6 days in out of her Symbicort for 4 days. She reports she became short of breath 2 days ago. Related Data Allergies Allergy/AdvReac Type Severity Reaction Status Date / Time divalproex sodium Allergy Unknown Rash Verified 07/14/22 14:32 lamotrigine Allergy Unknown Unknown Verified 07/14/22 14:32 phenobarbital Allergy Unknown Unknown Verified 07/14/22 14:32 Sulfa (Sulfonamide Allergy Unknown Rash Verified 07/14/22 14:32 Antibiotics) Review of Systems Review of Systems: Pertinent positives per HPI. Patient denies any fever, chills, rash, headache, visual changes, dizziness, chest pain, palpitations, nausea, vomiting, diarrhea, constipation, abdominal pain, or any urinary issues. [facility] Past Medical History Medical History Asthma COPD (chronic obstructive pulmonary disease) Surgical History Surgical History History of cholecystectomy Family History Family History Mother Cerebrovascular accident Acute myocardial infarction Other Asthma Depression Diabetes mellitus Family history of seizure disorder Hypertension Social History Social History Smoking packs per day: 1 Smoking cigarettes per day: 20.0 Years smoked: 10 Smoking pack-years: 10.00 Smoking status: Current every day smoker Second hand tobacco smoke exposure: Yes Alcohol intake: never Gender identity (if verbalized by the patient): Female Comments At the time of my signature, I reviewed and agree with the nursing past medical, surgical, social, and family history. There is no relevant family history pertinent to the patient complaint. Exam Narrative: General: Well-developed, well nourished, in no apparent distress Head: Normocephalic, atraumatic Eyes: Pupils equally round and reactive to light bilaterally, EOM intact, sclera and conjunctive clear, no discharge, lids normal Ears: TMs intact and clear, ear canals clear, no drainage, grossly hearing normal. Nose: Nares patent, no discharge, no inflammation, no sinus tenderness. Mouth: Oral pharynx without lesions or masses, good dentition, MMM. Neck: Supple, trachea midline, no enlargement of anterior or posterior cervical nodes, no thyroid masses or goiter palpable. Cardio: Regular rate and rhythm, s1 and s2 normal, no murmur appreciated. Resp: Lung sounds tight with expiratory wheezing, no rhonchi, rales, or rubs Course Course Emergency Course: Portions of this record may have been created with voice recognition software. Level of Care: Express Care Visit Vital Signs Vital signs: Vital Signs Temperature 36.8 C 07/14/22 14:24 Pulse Rate 105 H 07/14/22 14:24 Respiratory Rate 16 07/14/22 14:24 Blood Pressure 121/87 07/14/22 14:24 Pulse Oximetry 99 07/14/22 14:24 Oxygen Delivery Room Air 07/14/22 14:24 Temperature 36.8 C 07/14/22 14:24 Pulse Rate 105 H 07/14/22 14:24 Respiratory Rate 16 07/14/22 14:24 Blood Pressure 121/87 07/14/22 14:24 Pulse Oximetry 99 07/14/22 14:24 Oxygen Delivery Room Air 07/14/22 14:24 Vital signs reviewed MDM - SOB/Dyspnea MDM Narrative Medical decision making narrative: At the time of visit patient is resting comfortably on the exam table. I suspect the patient has asthma exacerbation. Pre
[2022-07-14 14:24] VITALS: BP 121/87; PULSE 105; RESP 16; TEMP 36.8; O2SAT 99
[2022-07-14] MEDS: IPRATROPIUM BR 0.02% INH SOLN 0.5 MG/2.5 ML VIAL INHALATION (14:41)
[2022-07-14] MEDS: ALBUTEROL SULFATE NEB 2.5 MG/3 ML INH INHALATION (14:42)
== END 2022-07-14 15:09 | disposition home or self-care (01) ==
PROVIDERS: Emergency Provider Nurse Practitioner Family; PCP Family Medicine
DX: J45.901 Unspecified asthma with (acute) exacerbation (principal); F17.210 Nicotine dependence, cigarettes, uncomplicated; J44.9 Chronic obstructive pulmonary disease, unspecified
CPT/HCPCS: 94640; 96372; 99213; G0463; J1100

== ENCOUNTER 2022-08-23 11:43 | Emergency (ER) | payer MEDICARE, MEDICAID, SELFPAY ==
[2022-08-23 11:48] VITALS: BP 122/103; PULSE 96; RESP 20; TEMP 37; O2SAT 98
--- NOTE | 2022-08-23 12:37 | ED.GENADULT ---
HPI - General Adult General Chief complaint: Upper Respiratory Infection Stated complaint: Asthma/Shortness of Breath Source: patient, RN notes reviewed and old records reviewed History of Present Illness HPI narrative: 37-year-old female with history of asthma, presents to urgent care with complaints of shortness of breath and asthma exacerbation. Patient states this episode started approximately 4 days ago. Patient states she has been out of her Symbicort. Denies any fevers, chills, or chest pain. Patient is here often for the same complaints and states she has been unable to get into a primary care physician. Patient states her sets this up for her and does not know if she has an appointment or not. Some parts of this dictation were generated by voice recognition software and may contain typographical and/or grammatical inaccuracies. Related Data Allergies Allergy/AdvReac Type Severity Reaction Status Date / Time divalproex sodium Allergy Unknown Rash Verified 07/14/22 14:32 lamotrigine Allergy Unknown Unknown Verified 07/14/22 14:32 phenobarbital Allergy Unknown Unknown Verified 07/14/22 14:32 Sulfa (Sulfonamide Allergy Unknown Rash Verified 07/14/22 14:32 Antibiotics) Review of Systems Review of Systems: CONSTITUTIONAL: Denies fever, chills, or sweats. EYES: Denies visual changes, redness, or discharge. ENT: Denies otalgia and sore throat CARDIOVASCULAR: Denies chest pain, palpitations, or edema. RESPIRATORY: Reports wheezing and dyspnea GASTROINTESTINAL: Denies abdominal pain, nausea, vomiting, or diarrhea. GENITOURINARY: Denies dysuria or hematuria. SKIN: Denies rash or itching. MUSCULOSKELETAL: Denies back pain, joint pain, or myalgia. NEUROLOGIC: Denies headache, numbness, or weakness. [facility] Past Medical History Medical History Asthma COPD (chronic obstructive pulmonary disease) Surgical History Surgical History History of cholecystectomy Family History Family History Mother Cerebrovascular accident Acute myocardial infarction Other Asthma Depression Diabetes mellitus Family history of seizure disorder Hypertension Social History Social History Smoking packs per day: 1 Smoking cigarettes per day: 20.0 Years smoked: 10 Smoking pack-years: 10.00 Smoking status: Current every day smoker Second hand tobacco smoke exposure: Yes Alcohol intake: never Living arrangements: with family Gender identity (if verbalized by the patient): Female Comments At the time of my signature, I reviewed and agree with the nursing past medical, surgical, social, and family history. There is no relevant family history pertinent to the patient complaint. Exam Narrative: GENERAL: This is a well-nourished, well-developed patient, in no apparent distress. HEAD: normocephalic, atraumatic. EYES: PERRL. Sclera clear/white. Vision is grossly intact. EARS: External ears normal NOSE: External nose normal with no obvious nasal discharge. CARDIOVASCULAR: Regular rate and rhythm without murmurs, gallops, or rubs. RESPIRATORY: Mild wheezing noted on auscultation GASTROINTESTINAL: Abdomen soft, non-tender, nondistended. Bowel sounds are active. No hepato-splenomegaly, or palpable masses. No guarding. SKIN: warm, intact with no suspicious lesions or rash, good texture and turgor. NEURO: awake, alert, and oriented to person, place and time. There were no obvious focal neurologic abnormalities. Course Course Level of Care: Express Care Visit Vital Signs Vital signs: Vital Signs Temperature 98.6 F 08/23/22 11:48 Pulse Rate 96 08/23/22 11:48 Respiratory Rate 20 08/23/22 11:48 Blood Pressure 122/103 H 08/23/22 11:48 Pulse Oximetry 98
== END 2022-08-23 12:48 | disposition home or self-care (01) ==
PROVIDERS: Emergency Provider Nurse Practitioner Family; PCP Emergency Medicine
DX: J45.901 Unspecified asthma with (acute) exacerbation (principal); F17.210 Nicotine dependence, cigarettes, uncomplicated; J44.9 Chronic obstructive pulmonary disease, unspecified
CPT/HCPCS: 99213; G0463

== ENCOUNTER 2022-09-23 18:45 | Emergency (ER) | payer MEDICARE, MEDICAID, SELFPAY ==
[2022-09-23 18:50] VITALS: BP 121/74; PULSE 104; RESP 18; TEMP 37.1; O2SAT 100
--- NOTE | 2022-09-23 19:11 | ED.URI ---
HPI - URI/Sore Throat General Chief Complaint: Upper Respiratory Infection Stated Complaint: Cough Time Seen by Provider: 09/23/22 19:11 Source: patient, RN notes reviewed and old records reviewed Mode of arrival: ambulatory Limitations: no limitations History of Present Illness HPI Narrative: 37-year-old female who presents to [facility] with complaints of acute cough,wheezing with some dyspnea since having pneumonia.Patient reports that she has had to use her inhaler more often and she is out and requests refill. Patient states she completed antibiotic 4 days ago as ordered, has some pain to the right rib area from frequent coughing. Patient continues to have wheezing with cough, has history of asthma.Patient reports that her cough is still productive at times of white mucous. MD elicited complaint: cough and other Pertinent past history: pneumonia and asthma Onset (ago): day(s) (10) Pain scale (0-10): 7 Able to tolerate fluids by mouth: Yes Treatments prior to arrival: antibiotics (completed 4 days ago and used inhaler) Related Data Allergies Allergy/AdvReac Type Severity Reaction Status Date / Time divalproex sodium Allergy Unknown Rash Verified 09/23/22 19:00 lamotrigine Allergy Unknown Unknown Verified 09/23/22 19:00 phenobarbital Allergy Unknown Unknown Verified 09/23/22 19:00 Sulfa (Sulfonamide Allergy Unknown Rash Verified 09/23/22 19:00 Antibiotics) Review of Systems Review of Systems: CONSTITUTIONAL: Denies malaise, chills, sweats, or fever. EYES: Denies visual changes, redness, or discharge. ENT: Reports rhinorrhea, congestion, sinus pain,no otalgia or sore throat. CARDIOVASCULAR: Denies chest pain, palpitations, or edema. RESPIRATORY: Reports productive cough.? Denies acute dyspnea.is wheezing and having some lateral rib pain wit cough GASTROINTESTINAL: Denies abdominal pain, nausea, vomiting, diarrhea SKIN: Denies rash or itching. MUSCULOSKELETAL: Denies myalgia. NEUROLOGIC: Denies headache. All systems reviewed & are unremarkable except as noted in HPI and below PMFSH Past Medical History Medical History Asthma COPD (chronic obstructive pulmonary disease) Surgical History Surgical History History of cholecystectomy Family History Family History Mother Cerebrovascular accident Acute myocardial infarction Other Asthma Depression Diabetes mellitus Family history of seizure disorder Hypertension Social History Social History (Updated 09/26/22 @ 09:13 by Skyla Peralta NP) Smoking packs per day: 1 Smoking cigarettes per day: 20.0 Years smoked: 10 Smoking pack-years: 10.00 Smoking status: Current every day smoker Second hand tobacco smoke exposure: Yes Additional smoking assessment comments: reports has cut tobacco use down Alcohol intake: never Substance use type: does not use Living arrangements: with family Gender identity (if verbalized by the patient): Female Comments At time of signature, agree with nursing past medical, surgical, social and family history. There is no relevant family history pertinent to the presenting complaint Exam Narrative: GENERAL: Well-appearing, well-nourished, and in no acute distress. HEAD: Normocephalic EYES: PERRLA, conjunctivae clear ENT: Nares clear, turbinates edematous and erythematous, clear discharge. Mucous membranes moist. TM pearly shirley with dull light reflex bilaterally; no tragal tenderness. Oropharynx erythematous without lesions. Tonsils not enlarged and without exudate, no drooling, no hoarseness, no trismus, uvula midline.some post nasal drainage NECK: Supple. No lymphadenopathy CHEST: Scattered wheezing on auscultation, breath sounds equal. positive for wheezing,no rhonchi, rales, or stridor. No respirator
== END 2022-09-23 19:30 | disposition home or self-care (01) ==
PROVIDERS: Emergency Provider Registered Nurse; PCP Family Medicine
DX: J06.9 Acute upper respiratory infection, unspecified (principal); R05.9 Cough, unspecified; R06.2 Wheezing; F17.210 Nicotine dependence, cigarettes, uncomplicated; J44.9 Chronic obstructive pulmonary disease, unspecified
CPT/HCPCS: 99213; G0463

== ENCOUNTER 2022-10-06 12:22 | Emergency (ER) | payer MEDICARE, MEDICAID, SELFPAY ==
--- NOTE | ~2022-10-06 | XR_ITS ---
EXAMINATION: XR chest 2V DATE: 10/06/2022 13:01 INDICATION: Asthma presenting with cough and shortness of breath TECHNIQUE: PA and lateral views of the chest were obtained. COMPARISON: Chest radiograph dated 08/27/2019 FINDINGS: The lungs remain clear with no focal airspace opacities, pulmonary edema, pleural effusion or pneumot horax. The cardiomediastinal silhouette is normal. Cholecystectomy clips in the right upper quadrant. IMPRESSION: 1. No acute cardiopulmonary disease. Reviewed, dictated and finalized at location A.
--- NOTE | 2022-10-06 12:42 | ED.URI ---
HPI - URI/Sore Throat General Chief Complaint: Upper Respiratory Infection Stated Complaint: cough congestion Source: patient and RN notes reviewed History of Present Illness HPI Narrative: 37-year-old male with history of asthma, presents to urgent care with complaints chest tightness, tightness her back, and shortness of breath. Patient states she has been this way for last month despite 1 course antibiotics and 1 course of steroids. Patient states she was diagnosed with pneumonia via CT scan in the emergency department approximately 1 month ago. Patient denies any fevers, chills, chest pain, further ear pain, dizziness, or vomiting. Patient reports having albuterol at home but has been out of her Symbicort inhaler x1 month. Some parts of this dictation were generated by voice recognition software and may contain typographical and/or grammatical inaccuracies. Related Data Allergies Allergy/AdvReac Type Severity Reaction Status Date / Time divalproex sodium Allergy Unknown Rash Verified 10/06/22 13:12 lamotrigine Allergy Unknown Unknown Verified 10/06/22 13:12 phenobarbital Allergy Unknown Unknown Verified 10/06/22 13:12 Sulfa (Sulfonamide Allergy Unknown Rash Verified 10/06/22 13:12 Antibiotics) Review of Systems Review of Systems: Pertinent positives and pertinent negatives per HPI. [facility] Past Medical History Medical History Asthma COPD (chronic obstructive pulmonary disease) Surgical History Surgical History History of cholecystectomy Family History Family History Mother Cerebrovascular accident Acute myocardial infarction Other Asthma Depression Diabetes mellitus Family history of seizure disorder Hypertension Social History Social History (Updated 09/26/22 @ 09:13 by Skyla Peralta NP) Smoking packs per day: 1 Smoking cigarettes per day: 20.0 Years smoked: 10 Smoking pack-years: 10.00 Smoking status: Current every day smoker Second hand tobacco smoke exposure: Yes Additional smoking assessment comments: reports has cut tobacco use down Alcohol intake: never Substance use type: does not use Living arrangements: with family Gender identity (if verbalized by the patient): Female Comments At the time of my signature, I reviewed and agree with the nursing past medical, surgical, social, and family history. There is no relevant family history pertinent to the patient complaint. Exam Narrative: GENERAL: This is a well-nourished, well-developed patient, in no apparent distress. HEAD: normocephalic, atraumatic. EYES: PERRL. Sclera clear/white. Vision is grossly intact. EARS: External ears normal, auditory canals clear and without drainage, TMs normal without perforation. Hearing grossly intact. NOSE: External nose normal with no obvious nasal discharge, nares without redness, no rhinorrhea. THROAT: Mucous membranes moist, posterior pharynx clear. Hoarse voice. NECK: Neck supple, non-tender without lymphadenopathy, masses or thyromegaly. CARDIOVASCULAR: Regular rate and rhythm without murmurs, gallops, or rubs. RESPIRATORY: Wheezing throughout GASTROINTESTINAL: Abdomen soft, non-tender, nondistended. Bowel sounds are active. No hepato-splenomegaly, or palpable masses. No guarding. SKIN: warm, intact with no suspicious lesions or rash, good texture and turgor. NEURO: awake, alert, and oriented to person, place and time. There were no obvious focal neurologic abnormalities. Course Course Level of Care: Express Care Visit Vital Signs Vital signs: Vital Signs Temperature 98 F 10/06/22 12:50 Pulse Rate 81 10/06/22 12:50 Respiratory Rate 22 H 10/06/22 12:50 Blood Pressure 115/61 10/06/22 12:50 Pulse Oximetry 99 10/06/22 12:50 Temperature 98 F 10/06/22 12:50 Pulse Rate
[2022-10-06 12:50] VITALS: BP 115/61; PULSE 81; RESP 22; TEMP 36.6; O2SAT 99
[2022-10-06] MEDS: methylPREDNISolone SOD SUCC 125 MG VIAL IM (13:03)
[2022-10-06] MEDS: ALBUTEROL SULFATE NEB 2.5 MG/3 ML INH INHALATION (13:05)
[2022-10-06] MEDS: IPRATROPIUM BR 0.02% INH SOLN 0.5 MG/2.5 ML VIAL INHALATION (13:06)
[2022-10-06 13:45] VITALS: PULSE 74; RESP 18; O2SAT 98
== END 2022-10-06 13:45 | disposition home or self-care (01) ==
PROVIDERS: Emergency Provider Nurse Practitioner Family; PCP Family Medicine
DX: J40 Bronchitis, not specified as acute or chronic (principal); J32.9 Chronic sinusitis, unspecified; F17.210 Nicotine dependence, cigarettes, uncomplicated; J44.9 Chronic obstructive pulmonary disease, unspecified
CPT/HCPCS: 71046; 96372; 99213; G0463; J2930

== ENCOUNTER 2022-10-24 16:31 | Emergency (ER) | payer MEDICARE, MEDICAID, SELFPAY ==
--- NOTE | ~2022-10-24 | XR_ITS ---
EXAMINATION: XR chest 2V Exam Date/Time: 10/24/2022 17:02 CDT HISTORY: COUGH X 2 DAYS. RT POST CHEST PAIN. HX. ASTHMA. Comparison: 10/06/2022. RESULT: Lines, tubes, and devices: None. Lungs and pleura: Perihilar reticular opacities with cuffing. No focal consolidation. Cardiomediastinal silhouette: Stable. Other: No acute osseous or upper abdominal finding. IMPRESSION: Pulmonary opacities may represent bronchiolitis, as can be seen with atypical infection, asthma, aspi ration, and small airways disease. Reviewed, dictated and finalized at location K. IMPRESSION: Pulmonary opacities may represent bronchiolitis, as can be seen with atypical i nfection, asthma, aspiration, and small airways disease.
[2022-10-24 16:36] VITALS: BP 142/74; PULSE 102; RESP 20; TEMP 37; O2SAT 100
--- NOTE | 2022-10-24 16:38 | ED.BACK ---
HPI - Back Pain/Injury General Chief Complaint: Upper Respiratory Infection Stated Complaint: Back pain running up and to front Time Seen by Provider: 10/24/22 16:38 Source: patient and RN notes reviewed History of Present Illness HPI Narrative: Patient is a 37-year-old female who presents to urgent care with complaints of right-sided mid back pain radiating to the right anterior region. Patient states that a month or so ago she had the same type of pain after having a bad cold/cough and was diagnosed with pneumonia through a CT scan at the hospital. Patient states that this pain is similar with deep breathing and she has most recently developed a cough over the last 3 days. Patient states she has been using her Symbicort and inhalers as needed. Denies any fevers, nausea, vomiting, chest pain or shortness of breath. No other acute complaints. No acute distress noted. Patient aware of the plan of care. Some parts of this dictation were generated by voice recognition software and may contain typographical and/or grammatical inaccuracies. Related Data Allergies Allergy/AdvReac Type Severity Reaction Status Date / Time divalproex sodium Allergy Unknown Rash Verified 10/24/22 17:01 lamotrigine Allergy Unknown Unknown Verified 10/24/22 17:01 phenobarbital Allergy Unknown Unknown Verified 10/24/22 17:01 Sulfa (Sulfonamide Allergy Unknown Rash Verified 10/24/22 17:01 Antibiotics) Review of Systems Review of Systems: CONSTITUTIONAL: Denies fever, chills, or sweats. EYES: Denies visual changes, redness, or discharge. ENT: Denies rhinorrhea, congestion, sore throat, or otalgia. CARDIOVASCULAR: Denies chest pain, palpitations, or edema. RESPIRATORY: Reports a productive cough with intermittent dyspnea and pain with deep breathing to the right back GASTROINTESTINAL: Denies abdominal pain, nausea, vomiting, or diarrhea. GENITOURINARY: Denies dysuria or hematuria. SKIN: Denies rash or itching. MUSCULOSKELETAL: Denies back pain, joint pain, or myalgia. NEUROLOGIC: Denies headache, numbness, or weakness. All other systems reviewed are negative, except as documented in HPI. [facility] Past Medical History Medical History Asthma COPD (chronic obstructive pulmonary disease) Surgical History Surgical History History of cholecystectomy Family History Family History Mother Cerebrovascular accident Acute myocardial infarction Other Asthma Depression Diabetes mellitus Family history of seizure disorder Hypertension Social History Social History (Updated 09/26/22 @ 09:13 by Skyla Peralta NP) Smoking packs per day: 1 Smoking cigarettes per day: 20.0 Years smoked: 10 Smoking pack-years: 10.00 Smoking status: Current every day smoker Second hand tobacco smoke exposure: Yes Additional smoking assessment comments: reports has cut tobacco use down Alcohol intake: never Substance use type: does not use Living arrangements: with family Gender identity (if verbalized by the patient): Female Comments At the time of my signature, I reviewed and agree with the nursing past medical, surgical, social, and family history. There is no relevant family history pertinent to the patient complaint. Exam Narrative: GENERAL: This is a well-nourished, well-developed patient, in no apparent distress. HEAD: normocephalic, atraumatic. EYES: PERRL. Sclera clear/white. Vision is grossly intact. EARS: External ears normal, auditory canals clear and without drainage, TMs normal without perforation. Hearing grossly intact. NOSE: External nose normal with no obvious nasal discharge, nares without redness, no rhinorrhea. THROAT: Mucous membranes moist, posterior pharynx clear. Moderate postnasal drainage NECK: Neck supple CARDIOVASCULAR: Regular ra
== END 2022-10-24 17:49 | disposition home or self-care (01) ==
PROVIDERS: Emergency Provider Nurse Practitioner Family
DX: J21.9 Acute bronchiolitis, unspecified (principal); F17.210 Nicotine dependence, cigarettes, uncomplicated; J44.9 Chronic obstructive pulmonary disease, unspecified
CPT/HCPCS: 71046; 99213; G0463

== ENCOUNTER 2022-11-24 18:17 | Emergency (ER) | payer MEDICARE, MEDICAID, SELFPAY ==
[2022-11-24 18:28] VITALS: BP 112/70; PULSE 95; RESP 18; TEMP 36.4; O2SAT 100
--- NOTE | 2022-11-24 19:04 | ED.SOB ---
HPI - SOB/Dyspnea General Chief Complaint: Shortness of Breath/Dyspnea Stated Complaint: Shortness of Breath Time Seen by Provider: 11/24/22 19:04 Source: patient Mode of arrival: ambulatory Limitations: no limitations History of Present Illness HPI Narrative: 37-year-old female with a history of asthma presented for complaint of wheezing and shortness of breath, and chest tightness for about 3 days since running out of inhalers. Taking albuterol and Symbicort. Patient is here often for the same complaints and states she has been unable to get into a primary care physician.?Frequently gets refills at the clinic. Scheduled with new pcp in January. Denies Dizziness, fatigue, fever, nausea or vomiting. Smokes less than 1/2ppd. Related Data Allergies Allergy/AdvReac Type Severity Reaction Status Date / Time divalproex sodium Allergy Unknown Rash Verified 10/24/22 17:01 lamotrigine Allergy Unknown Unknown Verified 10/24/22 17:01 phenobarbital Allergy Unknown Unknown Verified 10/24/22 17:01 Sulfa (Sulfonamide Allergy Unknown Rash Verified 10/24/22 17:01 Antibiotics) Review of Systems Review of Systems: CONSTITUTIONAL: Denies body aches, fever, chills, or sweats. EYES: Denies visual changes, redness, or discharge. ENT: Denies rhinorrhea, congestion, sore throat, or otalgia. CARDIOVASCULAR: Denies chest pain, palpitations, or edema. RESPIRATORY: Reports cough, sob, wheezing. GASTROINTESTINAL: Denies abdominal pain, nausea, vomiting, or diarrhea. GENITOURINARY: Denies dysuria or hematuria. SKIN: Denies rash, itching, or wounds. MUSCULOSKELETAL: Denies back pain, joint pain, or myalgia. NEUROLOGIC: Denies headache, numbness, tingling, or weakness. All systems reviewed & are unremarkable except as noted in HPI and below PMFSH Past Medical History Medical History Asthma COPD (chronic obstructive pulmonary disease) Surgical History Surgical History History of cholecystectomy Family History Family History Mother Cerebrovascular accident Acute myocardial infarction Other Asthma Depression Diabetes mellitus Family history of seizure disorder Hypertension Social History Social History Smoking packs per day: 1 Smoking cigarettes per day: 20.0 Years smoked: 10 Smoking pack-years: 10.00 Smoking status: Current every day smoker Second hand tobacco smoke exposure: Yes Additional smoking assessment comments: reports has cut tobacco use down Alcohol intake: never Substance use type: does not use Living arrangements: with family Gender identity (if verbalized by the patient): Female Comments At time of signature, I have reviewed and agree with nursing past medical, surgical, social and family history unless otherwise noted. Please see nursing chart for further information. There is no relevant family history pertinent to the presenting complaint Exam Narrative: GENERAL: ill-appearing, in no acute distress. EYES: EOMI. No redness or drainage. Conjunctivae normal. ENT: Mucous membranes pink and moist. No rhinorrhea. TMs normal bilaterally. Throat normal. Uvula midline. NECK: Normal AROM. Supple. CHEST: No respiratory distress, speaks full sentences, Audible insp/exp wheezing and Wheezing to all nava. HEART: Regular rate and rhythm. No murmur appreciated. ABDOMEN: Soft, nontender, nondistended, normal active bowel sounds. EXTREMITIES: Normal range of motion. No edema. SKIN: Warm, dry, no rash. Capillary refill normal. Normal skin turgor. NEURO: Alert and oriented x3. Gait steady. PSYCH: Normal affect. Course Course Emergency Course: Patient is aware of diagnosis, understands and agrees to treatment plan. Anticipatory guidance given. Patien
[2022-11-24] MEDS: IPRATROPIUM BR 0.02% INH SOLN 0.5 MG/2.5 ML VIAL INHALATION (19:17)
[2022-11-24] MEDS: methylPREDNISolone SOD SUCC 125 MG VIAL IM (19:17)
[2022-11-24] MEDS: ALBUTEROL SULFATE NEB 2.5 MG/3 ML INH INHALATION (19:17)
[2022-11-24 19:18] VITALS: PULSE 81; RESP 20; O2SAT 97
[2022-11-24 19:37] VITALS: PULSE 90; RESP 20; O2SAT 97
== END 2022-11-24 20:02 | disposition home or self-care (01) ==
PROVIDERS: Emergency Provider Nurse Practitioner Family
DX: J45.901 Unspecified asthma with (acute) exacerbation (principal); F17.210 Nicotine dependence, cigarettes, uncomplicated; J44.9 Chronic obstructive pulmonary disease, unspecified
CPT/HCPCS: 94640; 96372; 99213; G0463; J2930

== ENCOUNTER 2023-06-19 16:09 | Emergency (ER) | payer MEDICARE, MEDICAID, SELFPAY ==
[2023-06-19 16:20] VITALS: BP 137/87; PULSE 76; RESP 20; TEMP 36.9; O2SAT 100
--- NOTE | 2023-06-19 16:42 | ED.URI ---
HPI - URI/Sore Throat General Chief Complaint: Upper Respiratory Infection Stated Complaint: sneezing,cough,body aches History of Present Illness HPI Narrative: Patient presents with body aches fever nasal congestion and sneezing. Patient has not been taking anything [id number] for her symptoms. Related Data Home Medications Medication Instructions Recorded Confirmed No Home Medications 06/19/23 06/19/23 Allergies Allergy/AdvReac Type Severity Reaction Status Date / Time divalproex sodium Allergy Unknown Rash Verified 06/19/23 16:36 lamotrigine Allergy Unknown Unknown Verified 06/19/23 16:36 phenobarbital Allergy Unknown Unknown Verified 06/19/23 16:36 Sulfa (Sulfonamide Allergy Unknown Rash Verified 06/19/23 16:36 Antibiotics) Review of Systems Review of Systems: CONSTITUTIONAL: Denies chills, or sweats. Reports fever and generalized body aches EYES: Denies visual changes, redness, or discharge. ENT: Denies otalgia. Reports nasal congestion runny nose and sore throat CARDIOVASCULAR: Denies chest pain, palpitations, or edema. RESPIRATORY: Denies dyspnea. Reports occasional cough GASTROINTESTINAL: Denies abdominal pain, nausea, vomiting, or diarrhea. GENITOURINARY: Denies dysuria or hematuria. SKIN: Denies rash or itching. MUSCULOSKELETAL: Denies back pain, joint pain, or myalgia. Reports generalized body aches NEUROLOGIC: Denies headache, numbness, or weakness. PSYCHIATRIC: Denies anxiety or depression. [facility] Past Medical History Medical History Asthma COPD (chronic obstructive pulmonary disease) Surgical History Surgical History History of cholecystectomy Family History Family History Mother Cerebrovascular accident Acute myocardial infarction Other Asthma Depression Diabetes mellitus Family history of seizure disorder Hypertension Social History Social History Smoking packs per day: 1 Smoking cigarettes per day: 20.0 Years smoked: 10 Smoking pack-years: 10.00 Smoking status: Current every day smoker Second hand tobacco smoke exposure: Yes Additional smoking assessment comments: reports has cut tobacco use down Alcohol intake: never Substance use type: does not use Living arrangements: with family Gender identity (if verbalized by the patient): Female Comments At time of signature, agree with nursing past medical, surgical, social and family history. There is no relevant family history pertinent to the presenting complaint Exam Narrative: The patient is a well-developed, well-nourished in no acute distress. SKIN: Skin is warm and dry without erythema, swelling or exudate. There is good turgor. No tenting. HEAD: Atraumatic. Normocephalic. No temporal or scalp tenderness. EYES: Moist and bright. Sclera and conjunctivae normal. No discharge. PERRLA. Extraocular motions intact. Gross visual acuity intact. EARS: Pinna is normal shape and contour. Clear external auditory canals. TM pearly prince with good cone of light, no erythema or suppuration. Bilateral cerumen noted no gross hearing deficit. NOSE: pink, moist mucosa with good air movement. Clear rhinorrhea without nasal flaring. Septum midline. Mouth: moist mucous membranes. THROAT; mild erythema noted to posterior oropharynx with moderate postnasal drainage. Without exudate or ulceration.. Uvula midline. Normal movement of soft palate. NECK: Supple and nontender with full range of motion without discomfort. No meningeal signs. LUNGS: Equal and bilateral breath sounds without wheezes, rales or rhonchi. CHEST: The chest wall is without retractions or use of accessory muscles. HEART: Has a regular rate and rhythm without murmur, gallops, click or rub. ABDOMEN: Soft, nontender with
== END 2023-06-19 16:45 | disposition home or self-care (01) ==
PROVIDERS: Emergency Provider Nurse Practitioner Family
DX: U07.1 COVID-19 (principal); J06.9 Acute upper respiratory infection, unspecified; F17.210 Nicotine dependence, cigarettes, uncomplicated; J44.9 Chronic obstructive pulmonary disease, unspecified
CPT/HCPCS: 87426; 87804; 99213; C9803; G0463

== ENCOUNTER 2023-08-14 08:19 | Emergency (ER) | payer MEDICARE, MEDICAID, SELFPAY ==
--- NOTE | ~2023-08-14 | XR_ITS ---
EXAMINATION: XR chest 2V DATE: 08/14/2023 09:09 INDICATION: Cough. Chronic obstructive pulmonary disease. TECHNIQUE: Frontal and lateral views of the chest were obtained. COMPARISON: Chest 2 views 10/24/2022, CT abdomen and pelvis 05/03/2016 FINDINGS: There is no pneumonia, pleural effusion, or pneumothorax. The heart size is normal. There i s an old healed right rib fracture. Surgical clips in the right upper quadrant are likely from cholec ystectomy. IMPRESSION: 1. No acute cardiopulmonary disease. Reviewed, dictated and finalized at location A. H TRUCK OPERATOR
[2023-08-14 08:28] VITALS: BP 139/82; PULSE 112; RESP 20; TEMP 36.9; O2SAT 100
--- NOTE | 2023-08-14 08:55 | ED.GENADULT ---
HPI - General Adult General Chief complaint: Upper Respiratory Infection Stated complaint: poss pnuemonia Source: patient Mode of arrival: ambulatory Limitations: no limitations History of Present Illness HPI narrative: Patient presents for evaluation of sick symptoms for last 4-5 days. Symptoms include sinus drainage, chills, productive cough of green sputum, wheezing, and throat irritation. No fever, nausea, vomiting. No recent sick contacts to her knowledge. She smokes half a pack per day. She is not taking any [id number] medications to assist with her symptoms. She had COVID back in June of 2023. She has a hx of asthma and COPD but has not needed to use her inhaler recently. She has some pain in her right anterior lower ribs that is only present when coughing. She had similar symptoms in the past with pneumonia. Related Data Allergies Allergy/AdvReac Type Severity Reaction Status Date / Time divalproex sodium Allergy Unknown Rash Verified 06/19/23 16:36 lamotrigine Allergy Unknown Unknown Verified 06/19/23 16:36 phenobarbital Allergy Unknown Unknown Verified 06/19/23 16:36 Sulfa (Sulfonamide Allergy Unknown Rash Verified 06/19/23 16:36 Antibiotics) Review of Systems Review of Systems: CONSTITUTIONAL: Reports chills. Denies fever or sweats. EYES: Denies visual changes, redness, or discharge. ENT: Reports throat irritation and postnasal drainage. Denies rhinorrhea, congestion, or otalgia. CARDIOVASCULAR: Reports pain in right lower ribs anteriorly when coughing. Denies palpitations, or edema. RESPIRATORY: Reports cough and wheezing GASTROINTESTINAL: Denies abdominal pain, nausea, vomiting, or diarrhea. GENITOURINARY: Denies dysuria or hematuria. SKIN: Denies rash or itching. MUSCULOSKELETAL: Denies back pain, joint pain, or myalgia. NEUROLOGIC: Denies headache, numbness, dizziness, or weakness. PSYCHIATRIC: Denies anxiety or depression. [facility] Past Medical History Medical History Asthma COPD (chronic obstructive pulmonary disease) Surgical History Surgical History History of cholecystectomy Family History Family History Mother Cerebrovascular accident Acute myocardial infarction Other Asthma Depression Diabetes mellitus Family history of seizure disorder Hypertension Social History Social History Smoking packs per day: 0.5 Smoking cigarettes per day: 10.0 Years smoked: 10 Smoking pack-years: 5.00 Smoking status: Current every day smoker Second hand tobacco smoke exposure: Yes Additional smoking assessment comments: reports has cut tobacco use down Alcohol intake: never Substance use type: does not use Living arrangements: with family Gender identity (if verbalized by the patient): Female Exam Narrative: GENERAL: Well-appearing, well-nourished, and in no acute distress. HEAD: Normocephalic, atraumatic. EYES: PERRLA and EOMI. ENT: Nares clear, no rhinorrhea or epistaxis. Mucous membranes moist. Oropharynx without tonsillar hypertrophy exudate or other lesions. Bilateral TMs pearly shirley nonbulging NECK: Supple. No adenopathy or masses. No carotid bruits or JVD CHEST: Clear to auscultation. No respiratory distress. No wheezes rales or rhonchi HEART: Regular rate and rhythm. No murmur heard. Normal peripheral pulses. ABDOMEN: Soft, nontender, nondistended, normal active bowel sounds. EXTREMITIES: Normal range of motion. No edema. SKIN: Warm, dry, no rash. NEURO: No focal deficits. Alert and oriented x3. PSYCH: Normal mood and affect. Course Course Emergency Course: This is a 38-year-old female who presented for evaluation of sick symptoms. She recently had COVID so COVID test was not performed. Influ
== END 2023-08-14 09:29 | disposition home or self-care (01) ==
PROVIDERS: Emergency Provider Nurse Practitioner
DX: J06.9 Acute upper respiratory infection, unspecified (principal); J44.9 Chronic obstructive pulmonary disease, unspecified; Z86.16 Personal history of COVID-19; F17.210 Nicotine dependence, cigarettes, uncomplicated
CPT/HCPCS: 71046; 87804; 99213; G0463

== ENCOUNTER 2023-09-11 08:36 | Emergency (ER) | payer MEDICARE, MEDICAID, SELFPAY ==
--- NOTE | ~2023-09-11 | XR_ITS ---
XR chest 2V DATE: 09/11/2023 10:16 INDICATION: Shortness of breath. Asthma flare for 2 days. TECHNIQUE: 2 views COMPARISON: August 14, 2023 2 view chest FINDINGS: Old healed posterolateral right sixth rib fracture. Moderate bilateral hyperinflation. No pulmonary infiltrate or consolidation, pleural effusion or pulm onary vascular congestion or pneumothorax is detected. Normal heart size. No hilar or mediastinal enl argement. Surgical clips overlying anterior upper abdomen on lateral view, not included on the PA projection, l ikely due to cholecystectomy IMPRESSION: Moderate hyperinflation; no active pulmonary disease is noted otherwise Reviewed, dictated and finalized at location A. IMPRESSION: Moderate hyperinflation; no active pulmonary disease is noted other wagoner
[2023-09-11 08:54] VITALS: BP 130/109; PULSE 102; RESP 20; TEMP 36.7; O2SAT 95
--- NOTE | 2023-09-11 09:04 | ED.URI ---
HPI - URI/Sore Throat General Chief Complaint: Shortness of Breath/Dyspnea Stated Complaint: ASthma flair up Time Seen by Provider: 09/11/23 09:04 Source: patient, RN notes reviewed and old records reviewed Mode of arrival: ambulatory Limitations: no limitations History of Present Illness HPI Narrative: 38 year old female who presents to [facility] care with complaints of 2 day history of asthma flare. Patient reports that she feels short of breath is tight in her chest with cough noted with audible wheezing noted. Patient reports that she is out of her inhaler and that her PCP has moved from area needs to get new PCP. Patient reports that she has had increasing shortness of breath with wheezing for the past 2 days and cough, denies any fevers chills or sweats. Patient reports that she has history of asthma and she quit smoking about 1.5 weeks ago. MD elicited complaint: cough and other (asthma flare) Pertinent past history: asthma and other (tobacco use till 1.5 weeks ago reported) Onset (ago): day(s) (2) Severity: moderate Able to tolerate fluids by mouth: Yes Exacerbating factors: exertion Treatments prior to arrival: none Related Data Home Medications Medication Instructions Recorded Confirmed albuterol sulfate 90 mcg/actuation inhalation 09/11/23 aerosol inhaler Allergies Allergy/AdvReac Type Severity Reaction Status Date / Time divalproex sodium Allergy Unknown Rash Verified 06/19/23 16:36 lamotrigine Allergy Unknown Unknown Verified 06/19/23 16:36 phenobarbital Allergy Unknown Unknown Verified 06/19/23 16:36 Sulfa (Sulfonamide Allergy Unknown Rash Verified 06/19/23 16:36 Antibiotics) Review of Systems Review of Systems: CONSTITUTIONAL: Denies malaise, chills, sweats, or fever. EYES: Denies visual changes, redness, or discharge. ENT: Reports rhinorrhea, congestion, sinus pain, no otalgia and no sore throat. CARDIOVASCULAR: Denies chest pain, palpitations, or edema, reports tightness in upper chest with breathing RESPIRATORY: Reports cough.? Reports acute dyspnea with cough and wheezing GASTROINTESTINAL: Denies abdominal pain, nausea, vomiting, diarrhea SKIN: Denies rash or itching. MUSCULOSKELETAL: Denies myalgia. NEUROLOGIC: Denies headache. All systems reviewed & are unremarkable except as noted in HPI and below PMFSH Past Medical History Medical History Asthma COPD (chronic obstructive pulmonary disease) Surgical History Surgical History History of cholecystectomy Family History Family History Mother Cerebrovascular accident Acute myocardial infarction Other Asthma Depression Diabetes mellitus Family history of seizure disorder Hypertension Social History Social History Smoking packs per day: 0.5 Smoking cigarettes per day: 10.0 Years smoked: 12 Smoking pack-years: 6.00 Smoking status: Former smoker Second hand tobacco smoke exposure: Yes Additional smoking assessment comments: 09/11/2023 reports that she quit smoking 1.5 weeks ago Alcohol intake: never Substance use type: does not use Living arrangements: with family Gender identity (if verbalized by the patient): Female Comments At time of signature, agree with nursing past medical, surgical, social and family history. There is no relevant family history pertinent to the presenting complaint Exam Narrative: GENERAL: Well-appearing, well-nourished, and in some acute distress. HEAD: Normocephalic EYES: PERRLA, conjunctivae clear ENT: Nares clear, turbinates edematous and erythematous, clear discharge. Mucous membranes moist. TM pearly shirley with dull light reflex bilaterally; no tragal tenderness. Oropharynx erythematous without lesions. Tonsils not enlarged and
[2023-09-11] MEDS: methylPREDNISolone SOD SUCC 125 MG VIAL IM (09:09)
[2023-09-11] MEDS: IPRATROPIUM BR 0.02% INH SOLN 0.5 MG/2.5 ML VIAL INHALATION (09:10)
[2023-09-11] MEDS: ALBUTEROL SULFATE NEB 2.5 MG/3 ML INH INHALATION (09:10)
--- NOTE | 2023-09-11 09:40 | PC.NURSE ---
pt is shakey and still wheezing post treatment. sat is 97. lying on stretcher to watch for 30 min. RR 24.
[2023-09-11 10:08] VITALS: PULSE 91; RESP 24; O2SAT 97
--- NOTE | 2023-09-11 10:52 | PC.NURSE ---
feeling better, rr 20, sat 98.
== END 2023-09-11 10:53 | disposition home or self-care (01) ==
PROVIDERS: Emergency Provider Registered Nurse
DX: J45.901 Unspecified asthma with (acute) exacerbation (principal); Z87.891 Personal history of nicotine dependence; J44.9 Chronic obstructive pulmonary disease, unspecified
CPT/HCPCS: 71046; 94640; 96372; 99213; G0463; J2930

== ENCOUNTER 2023-10-04 10:25 | Emergency (ER) | payer MEDICARE, MEDICAID, SELFPAY ==
--- NOTE | ~2023-10-04 | XR_ITS ---
Clinical Indication: Cough PA and lateral views of the chest: Comparison: 09/11/2023 Findings: The lungs are clear, without evidence of focal consolidation or pleural effusion. Cardiome diastinal silhouette is within normal limits. Stable probable chronic fracture deformity the right si xth rib. Impression: No acute abnormalities. Reviewed, dictated and finalized at [facility]. Impression: No acute abnormalities.
[2023-10-04 10:32] VITALS: BP 110/82; PULSE 101; RESP 24; TEMP 36.8; O2SAT 98
--- NOTE | 2023-10-04 10:39 | ED.GENADULT ---
HPI - General Adult General Chief complaint: Upper Respiratory Infection Stated complaint: Shortness of Breath/Cough Source: patient, RN notes reviewed and old records reviewed Mode of arrival: ambulatory Limitations: no limitations History of Present Illness HPI narrative: 30[facility] of cough, congestion, wheezing, difficulty breathing that started yesterday. Patient states has a history of asthma. Patient denies recent illness. Patient uses albuterol inhaler for asthma. Patient states that approximately 1 month since last steroids. Related Data Home Medications Medication Instructions Recorded Confirmed albuterol sulfate 2.5 mg/3 mL 2.5 mg inhalation Q4H PRN 10/04/23 10/04/23 (0.083 %) solution for nebulization Shortness Of Breath Or Wheezing Allergies Allergy/AdvReac Type Severity Reaction Status Date / Time divalproex sodium Allergy Unknown Rash Verified 10/04/23 11:00 lamotrigine Allergy Unknown Unknown Verified 10/04/23 11:00 phenobarbital Allergy Unknown Unknown Verified 10/04/23 11:00 Sulfa (Sulfonamide Allergy Unknown Rash Verified 10/04/23 11:00 Antibiotics) Review of Systems Constitutional: Constitutional: Reports no additional constitutional complaints, Denies body ache(s), Denies chills, Denies fatigue, Denies fever(s) and Denies headache(s) Eyes: Eyes: Reports no additional eye complaints and Denies blurry vision ENT: Reports system reviewed and no additional complaints, except as documented, Denies vertigo, Denies dizziness, Denies ear discharge, Denies otalgia, Denies facial pain, Denies headache(s), Denies nasal congestion, Denies nasal discharge, Denies sinus pain, Denies sinus pressure and Denies sore throat Cardiovascular: Cardiovascular: Reports no additional cardiovascular complaints, Denies chest pain, Denies chest pain at rest, Denies rapid heart rate and Denies dyspnea Respiratory: Respiratory: Reports no additional respiratory complaints, Reports chest congestion, Reports cough, Denies pain on inspiration, Denies pain with cough, Reports dyspnea and Reports wheezing Gastrointestinal: Gastrointestinal: Denies abdominal pain, Denies diarrhea, Denies nausea and Denies vomiting Integumentary/Breasts: Skin/Breast: Denies rash Neurologic: Reports system reviewed and no additional complaints, except as documented, Denies vertigo, Denies dizziness and Denies headache(s) Endocrine: Endocrine: Denies fatigue PMFSH Past Medical History Medical History Asthma COPD (chronic obstructive pulmonary disease) Surgical History Surgical History History of cholecystectomy Family History Family History Mother Cerebrovascular accident Acute myocardial infarction Other Asthma Depression Diabetes mellitus Family history of seizure disorder Hypertension Social History Social History Smoking packs per day: 0.5 Smoking cigarettes per day: 10.0 Years smoked: 12 Smoking pack-years: 6.00 Smoking status: Former smoker Second hand tobacco smoke exposure: Yes Additional smoking assessment comments: 09/11/2023 reports that she quit smoking 1.5 weeks ago Alcohol intake: never Substance use type: does not use Living arrangements: with family Gender identity (if verbalized by the patient): Female Comments At the time of my signature, I reviewed and agree with the nursing past medical, surgical, social, and family history. There is no relevant family history pertinent to the patient complaint. Exam Const: General: cooperative, healthy appearing, no acute distress and well nourished Nutritional Appearance: well nourished Orientation/consciousness: patient oriented x3 Limitations: no limitations JULIAMT: Concha
[2023-10-04] MEDS: ALBUTEROL SULFATE NEB 2.5 MG/3 ML INH INHALATION ×2 (10:48→11:17)
[2023-10-04] MEDS: IPRATROPIUM BR 0.02% INH SOLN 0.5 MG/2.5 ML VIAL INHALATION ×2 (10:48→11:17)
[2023-10-04 11:04] VITALS: BP 110/82; PULSE 101; RESP 24; TEMP 36.8; O2SAT 98
[2023-10-04] MEDS: predniSONE 20 MG TABLET 60 MG PO (11:15)
== END 2023-10-04 11:45 | disposition home or self-care (01) ==
PROVIDERS: Emergency Provider Registered Nurse
DX: J45.901 Unspecified asthma with (acute) exacerbation (principal); Z87.891 Personal history of nicotine dependence; J44.9 Chronic obstructive pulmonary disease, unspecified
CPT/HCPCS: 71046; 94640; 99213; G0463; J7512

== ENCOUNTER 2023-10-22 15:35 | Emergency (ER) | payer MEDICARE, MEDICAID, SELFPAY ==
[2023-10-22 15:40] VITALS: BP 134/63; PULSE 102; RESP 20; TEMP 36.9; O2SAT 99
--- NOTE | 2023-10-22 15:45 | ED.GENADULT ---
HPI - General Adult General Chief complaint: Upper Respiratory Infection Stated complaint: asthma Source: patient, RN notes reviewed and old records reviewed Mode of arrival: ambulatory Limitations: no limitations History of Present Illness HPI narrative: 38-year-old female presents to [facility] with complaints shortness of breath and wheezing that started earlier today. Patient states tried at home nebulizer machine with no relief. Patient has known history of asthma. Patient uses albuterol inhaler and albuterol nebulizer. Related Data Allergies Allergy/AdvReac Type Severity Reaction Status Date / Time divalproex sodium Allergy Unknown Rash Verified 10/22/23 15:59 lamotrigine Allergy Unknown Unknown Verified 10/22/23 15:59 phenobarbital Allergy Unknown Unknown Verified 10/22/23 15:59 Sulfa (Sulfonamide Allergy Unknown Rash Verified 10/22/23 15:59 Antibiotics) Review of Systems Constitutional: Constitutional: Reports no additional constitutional complaints, Denies body ache(s), Denies chills, Denies fatigue, Denies fever(s) and Denies headache(s) Eyes: Eyes: Reports no additional eye complaints and Denies blurry vision ENT: Reports system reviewed and no additional complaints, except as documented, Denies vertigo, Denies dizziness, Denies ear discharge, Denies otalgia, Denies facial pain, Denies headache(s), Denies nasal congestion, Denies nasal discharge, Denies sinus pain, Denies sinus pressure and Denies sore throat Cardiovascular: Cardiovascular: Reports no additional cardiovascular complaints, Denies chest pain, Denies chest pain at rest, Denies rapid heart rate and Denies dyspnea Respiratory: Respiratory: Reports no additional respiratory complaints, Denies chest congestion, Denies cough, Denies pain on inspiration, Denies pain with cough, Reports dyspnea and Reports wheezing Gastrointestinal: Gastrointestinal: Denies abdominal pain, Denies diarrhea, Denies nausea and Denies vomiting Integumentary/Breasts: Skin/Breast: Denies rash Neurologic: Reports system reviewed and no additional complaints, except as documented, Denies vertigo, Denies dizziness and Denies headache(s) Endocrine: Endocrine: Denies fatigue [facility], [facility] Past Medical History Medical History Asthma COPD (chronic obstructive pulmonary disease) Surgical History Surgical History History of cholecystectomy Family History Family History Mother Cerebrovascular accident Acute myocardial infarction Other Asthma Depression Diabetes mellitus Family history of seizure disorder Hypertension Social History Social History Smoking packs per day: 0.5 Smoking cigarettes per day: 10.0 Years smoked: 12 Smoking pack-years: 6.00 Smoking status: Former smoker Second hand tobacco smoke exposure: Yes Additional smoking assessment comments: 09/11/2023 reports that she quit smoking 1.5 weeks ago Alcohol intake: never Substance use type: does not use Living arrangements: with family Gender identity (if verbalized by the patient): Female Comments At the time of my signature, I reviewed and agree with the nursing past medical, surgical, social, and family history. There is no relevant family history pertinent to the patient complaint. Exam Const: General: cooperative, healthy appearing, no acute distress and well nourished Nutritional Appearance: well nourished Orientation/consciousness: patient oriented x3 Limitations: no limitations HENMT: Head: normal to inspection and normocephalic Ears: external ears normal, TM's normal bilaterally, EAC's normal and mastoids normal Face/Nose/Sinus: normal facial exam Face and sinus: normal facial exam Mouth: Yes Normal oral and palatal mucosa present, Yes oropharynx normal and Yes moist mucous membranes Throat: tonsils normal, uvula midline and no uvular edema Eyes: General: appearance normal, both eyes and all related structures Sclera: sclerae normal Pupils: Equal, round and reactive pupils present Resp: Effort & Inspection: normal respiratory effort, able to speak in complete sentences, no audible wheezes, no cough, no respiratory distress and no retractions Auscultation: clear to auscultation bilaterally, no crackles, no rales, no rhonchi and wheezes throughout Cardio: Rate: regular rate Rhythm: regular rhythm Skin: General skin exam: normal color and no rashes or lesions noted Neuro: General: patient oriented x3 Cranial nerves: Yes Equal, round and reactive pupils present Psych: Appearance: grossly normal Mental Status: mental status grossly normal Speech and movement: Normal speech and movement present Affect: normal affect Course Course Emergency Course: Patient is aware of diagnosis, understands and agrees to treatment plan.? Anticipatory guidance given.? Patient agrees to follow-up as directed and is aware of reasons to seek care at the emergency department. Some parts of this dictation were generated by voice recognition software and may contain typographical and/or grammatical inaccuracies. Level of Care: Express Care Visit Vital Signs Vital signs: Reviewed Medical Decision Making MDM Narrative Medical decision making narrative: Patient with shortness of breath or wheezing. Patient has known history of asthma. Patient tried at home albuterol nebulizer with no relief. patient given DuoNeb here patient still with expiratory wheezing after 1st DuoNeb, DuoNeb repeated and prednisone given patient improved after 2nd nebulizer will send home with 5 days of prednisone and Singulair and instructed on close follow-up. Patient resting comfortably without signs or symptoms of acute distress, nontoxic appearing, vital signs stable. patient appropriate for discharge home and outpatient care, with instructions on close monitoring, close follow-up, and when to seek emergency care. Discharge instructions reviewed with patient, as well as provided in writing per nursing staff. The instructions also include specific and strict return/GO TO THE ER as well as f/u information. All questions have been answered, and the patient deny any further questions with discharge and discharge plan. Differential Diagnosis Differential Diagnosis: asthma, COVID, pneumonia, COPD Medical Records Medical records reviewed: Yes I reviewed the external patient's medical records. Vital Signs Vital Signs: reviewed Lab Data Lab results reviewed: Yes I reviewed the patient's lab results. Discharge Plan Discharge Clinical Impression: Asthma exacerbation Qualifiers: Asthma severity: mild Asthma persistence: persistent Qualified Code(s): J45.31 - Mild persistent asthma with (acute) exacerbation Patient Disposition: Home, Self-Care Condition: Stable Instructions: Asthma (ED) Additional Instructions: steroids as directed Singulair daily continue albuterol inhaler and albuterol nebulizer as needed follow-up with a primary care physician as soon as possible it is important that you a establish care with a primary care provider, then get referral to pulonologist. Prescriptions: New prednisone 50 mg tablet 50 mg PO DAILY 5 Days Qty: 5 0RF montelukast [Singulair] 10 mg tablet 10 mg PO DAILY Qty: 30 0RF No Action albuterol sulfate 90 mcg/actuation HFA aerosol inhaler 2 puff inhalation QID PRN (Reason: shortness of breath or wheezing) Qty: 8.5 1RF Follow-up/Referrals: PHYSICIAN,BROILER MANAGER [Primary Care Provider] - Tanesha Lamas DO [Physician] - 3 Days ( express care follow-up/establish care) Time of Disposition: 16:50
[2023-10-22] MEDS: ALBUTEROL SULFATE NEB 2.5 MG/3 ML INH INHALATION ×2 (15:55→16:26)
[2023-10-22] MEDS: IPRATROPIUM BR 0.02% INH SOLN 0.5 MG/2.5 ML VIAL INHALATION ×2 (15:55→16:26)
[2023-10-22] MEDS: predniSONE 20 MG TABLET 60 MG PO (16:24)
[2023-10-22 16:26] VITALS: PULSE 90; RESP 22; O2SAT 97
== END 2023-10-22 16:52 | disposition home or self-care (01) ==
PROVIDERS: Emergency Provider Registered Nurse
CPT/HCPCS: 94640; 99213; G0463; J7512

== ENCOUNTER 2023-12-13 16:47 | Emergency (ER) | payer MEDICARE, MEDICAID, SELFPAY ==
[2023-12-13 16:58] VITALS: BP 114/80; PULSE 93; RESP 20; TEMP 37.1; O2SAT 100
--- NOTE | 2023-12-13 17:46 | ED.GENADULT ---
HPI - General Adult General Chief complaint: Asthma Stated complaint: Trouble Breathing Time Seen by Provider: 12/13/23 17:39 Source: patient, RN notes reviewed and old records reviewed Mode of arrival: ambulatory Limitations: no limitations History of Present Illness HPI narrative: 38-year-old female to [facility] for complaint of shortness of breath, wheezing. 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 patient states that the inhaler that she has at home is old and that she does not any recent medications for her DuoNeb. Patient does not have PCP. Patient denies chest pain, fever, sore throat, ear pain, GI complaints. patient able to speak in short sentences without difficulty. Patient able to tolerate fluids by mouth. Respirations even and nonlabored. No acute distress. Related Data Allergies Allergy/AdvReac Type Severity Reaction Status Date / Time divalproex sodium Allergy Unknown Rash Verified 10/22/23 15:59 lamotrigine Allergy Unknown Unknown Verified 10/22/23 15:59 phenobarbital Allergy Unknown Unknown Verified 10/22/23 15:59 Sulfa (Sulfonamide Allergy Unknown Rash Verified 10/22/23 15:59 Antibiotics) Review of Systems Review of Systems: All systems reviewed & are unremarkable except as noted in HPI and below Constitutional: Constitutional: Reports no additional constitutional complaints Eyes: Eyes: Reports no additional eye complaints ENT: Reports system reviewed and no additional complaints, except as documented Cardiovascular: Cardiovascular: Reports no additional cardiovascular complaints, Denies chest pain and Denies dyspnea Respiratory: Respiratory: Reports no additional respiratory complaints, Denies cough, Reports dyspnea and Reports wheezing Musculoskeletal: Musculoskeletal: Reports no additional musculoskeletal complaints Neurologic: Reports system reviewed and no additional complaints, except as documented Psychiatric: Psychiatric: Reports no additional psychiatric complaints [facility] Past Medical History Medical History Asthma COPD (chronic obstructive pulmonary disease) Surgical History Surgical History History of cholecystectomy Family History Family History Mother Cerebrovascular accident Acute myocardial infarction Other Asthma Depression Diabetes mellitus Family history of seizure disorder Hypertension Social History Social History Smoking packs per day: 0.5 Smoking cigarettes per day: 10.0 Years smoked: 12 Smoking pack-years: 6.00 Smoking status: Former smoker Second hand tobacco smoke exposure: Yes Additional smoking assessment comments: 09/11/2023 reports that she quit smoking 1.5 weeks ago Alcohol intake: never Substance use type: does not use Living arrangements: with family Gender identity (if verbalized by the patient): Female Comments At the time of my signature, I reviewed and agree with the nursing past medical, surgical, social, and family history. There is no relevant family history pertinent to the patient complaint. Exam Const: General: cooperative, no acute distress, alert, anxious, uncomfortable and well nourished Nutritional Appearance: well nourished Orientation/consciousness: patient oriented x3 Limitations: no limitations HENMT: Head: normal to inspection Ears: external ears normal Face/Nose/Sinus: Normal external nose present, Normal nares present, normal facial exam, No erythema and No edema Face and sinus: normal facial exam, no erythema and no edema Mouth: Yes Normal oral and palatal mucosa present Eyes: General: appearance normal, both eyes and all related structures Neck: Neck: normal visual inspection,
[2023-12-13] MEDS: IPRATROPIUM 0.5 MG/ALBUTEROL SULFATE 2.5 MG AMPUL.NEB 3 ML INHALATION (18:00)
== END 2023-12-13 18:39 | disposition home or self-care (01) ==
PROVIDERS: Emergency Provider Nurse Practitioner Family
DX: J45.901 Unspecified asthma with (acute) exacerbation (principal); Z87.891 Personal history of nicotine dependence; J44.9 Chronic obstructive pulmonary disease, unspecified
CPT/HCPCS: 94640; 99213; G0463

== ENCOUNTER 2023-12-19 08:49 | Emergency (ER) | payer MEDICARE, MEDICAID, SELFPAY ==
[2023-12-19 08:58] VITALS: BP 123/86; PULSE 103; RESP 20; TEMP 37.9; O2SAT 96
--- NOTE | 2023-12-19 09:23 | ED.URI ---
HPI - URI/Sore Throat General Chief Complaint: Upper Respiratory Infection Stated Complaint: cough/chills/heavy chest Time Seen by Provider: 12/19/23 09:14 Source: patient, RN notes reviewed and old records reviewed Mode of arrival: ambulatory Limitations: no limitations History of Present Illness HPI Narrative: 38-year-old female to [facility] Care with for 1 week well as headache, shortness of breath, fever, body aches and anxiousness. Patient was seen here 6 days ago for similar complaint but is now febrile. Patient reports having no inhalers at home. Patient denies chest pain, cough. Patient is very anxious in exam room and tearful. Respirations even and nonlabored. Audible wheezing present. Patient in no acute distress. Related Data Allergies Allergy/AdvReac Type Severity Reaction Status Date / Time divalproex sodium Allergy Unknown Rash Verified 10/22/23 15:59 lamotrigine Allergy Unknown Unknown Verified 10/22/23 15:59 phenobarbital Allergy Unknown Unknown Verified 10/22/23 15:59 Sulfa (Sulfonamide Allergy Unknown Rash Verified 10/22/23 15:59 Antibiotics) Review of Systems Review of Systems: All systems reviewed & are unremarkable except as noted in HPI and below Constitutional: Constitutional: Reports as per HPI, Reports body ache(s), Reports chills, Reports fever(s) and Reports headache(s) Eyes: Eyes: Reports no additional eye complaints ENT: Reports system reviewed and no additional complaints, except as documented Cardiovascular: Cardiovascular: Reports no additional cardiovascular complaints, Denies chest pain and Denies dyspnea Respiratory: Respiratory: Reports as per HPI, Reports cough and Reports dyspnea Musculoskeletal: Musculoskeletal: Reports no additional musculoskeletal complaints Neurologic: Reports system reviewed and no additional complaints, except as documented Psychiatric: Psychiatric: Reports as per HPI and Reports anxiety [facility] Past Medical History Medical History Asthma COPD (chronic obstructive pulmonary disease) Surgical History Surgical History History of cholecystectomy Family History Family History Mother Cerebrovascular accident Acute myocardial infarction Other Asthma Depression Diabetes mellitus Family history of seizure disorder Hypertension Social History Social History Smoking packs per day: 0.5 Smoking cigarettes per day: 10.0 Years smoked: 12 Smoking pack-years: 6.00 Smoking status: Former smoker Second hand tobacco smoke exposure: Yes Additional smoking assessment comments: 09/11/2023 reports that she quit smoking 1.5 weeks ago Alcohol intake: never Substance use type: does not use Living arrangements: with family Gender identity (if verbalized by the patient): Female Comments At the time of my signature, I reviewed and agree with the nursing past medical, surgical, social, and family history. There is no relevant family history pertinent to the patient complaint. Exam Const: General: cooperative, no acute distress, alert, anxious, ill appearing acutely, tired appearing, uncomfortable and well nourished Nutritional Appearance: well nourished Orientation/consciousness: patient oriented x3 Limitations: no limitations HENMT: Head: normal to inspection Ears: external ears normal Face/Nose/Sinus: Normal external nose present, Normal nares present, normal facial exam, No erythema and No edema Face and sinus: normal facial exam, no erythema and no edema Mouth: Yes Normal oral and palatal mucosa present Throat: posterior oropharynx abnormal erythema Eyes: General: appearance normal, both eyes and all related structures Neck: Neck: normal visual inspection, full ROM and no meningeal s
[2023-12-19] MEDS: IPRATROPIUM 0.5 MG/ALBUTEROL SULFATE 2.5 MG AMPUL.NEB 3 ML INHALATION (09:39)
[2023-12-19 09:51] VITALS: PULSE 103; RESP 20; O2SAT 93
== END 2023-12-19 10:06 | disposition home or self-care (01) ==
PROVIDERS: Emergency Provider Nurse Practitioner Family
DX: J06.9 Acute upper respiratory infection, unspecified (principal); J40 Bronchitis, not specified as acute or chronic; Z87.891 Personal history of nicotine dependence; J44.9 Chronic obstructive pulmonary disease, unspecified
CPT/HCPCS: 94640; 99213; G0463

== ENCOUNTER 2024-01-13 15:13 | Emergency (ER) | payer MEDICARE, MEDICAID, SELFPAY ==
[2024-01-13 15:19] VITALS: BP 139/92; PULSE 100; RESP 16; TEMP 36.9; O2SAT 99
[2024-01-13 15:24] VITALS: BP 139/92; PULSE 100; RESP 16; TEMP 36.9; O2SAT 99
--- NOTE | 2024-01-13 15:24 | ED.URI ---
HPI - URI/Sore Throat General Chief Complaint: Upper Respiratory Infection Stated Complaint: Cough/Shortness of Breath Time Seen by Provider: 01/13/24 15:24 Source: patient Mode of arrival: ambulatory Limitations: no limitations History of Present Illness HPI Narrative: 39-year-old female with history of asthma presents today with complaint of cough, chest congestion, wheezing, chest tightness for the past 3 days. Reports sick with cough and congestion for 6 days. Afebrile. Out of albuterol inhaler and also nebulizer treatments. Does not have a primary care physician. All systems reviewed and negative except as noted above. Related Data Allergies Allergy/AdvReac Type Severity Reaction Status Date / Time divalproex sodium Allergy Unknown Rash Verified 10/22/23 15:59 lamotrigine Allergy Unknown Unknown Verified 10/22/23 15:59 phenobarbital Allergy Unknown Unknown Verified 10/22/23 15:59 Sulfa (Sulfonamide Allergy Unknown Rash Verified 10/22/23 15:59 Antibiotics) Review of Systems Review of Systems: CONSTITUTIONAL: Denies fever, chills, or sweats. Reports fatigue. EYES: Denies visual changes, redness, or discharge. ENT: Reports rhinorrhea, congestion. Denies sore throat, or otalgia. CARDIOVASCULAR: Denies chest pain, palpitations, or edema. RESPIRATORY: Reports cough and dyspnea with exertion. GASTROINTESTINAL: Denies abdominal pain, nausea, vomiting, or diarrhea. GENITOURINARY: Denies dysuria or hematuria. SKIN: Denies rash or itching. MUSCULOSKELETAL: Denies back pain, joint pain, or myalgia. NEUROLOGIC: Denies headache, numbness, or weakness. PSYCHIATRIC: Denies anxiety or depression. All other systems reviewed are negative, except as documented in HPI. [facility] Past Medical History Medical History Asthma COPD (chronic obstructive pulmonary disease) Surgical History Surgical History History of cholecystectomy Family History Family History Mother Cerebrovascular accident Acute myocardial infarction Other Asthma Depression Diabetes mellitus Family history of seizure disorder Hypertension Social History Social History Smoking packs per day: 0.5 Smoking cigarettes per day: 10.0 Years smoked: 12 Smoking pack-years: 6.00 Smoking status: Former smoker Second hand tobacco smoke exposure: Yes Additional smoking assessment comments: 09/11/2023 reports that she quit smoking 1.5 weeks ago Alcohol intake: never Substance use type: does not use Living arrangements: with family Gender identity (if verbalized by the patient): Female Comments At time of signature, agree with nursing past medical, surgical, social and family history. There is no relevant family history pertinent to the presenting complaint. Exam Narrative: GENERAL: This is a well-nourished, well-developed patient, ill-appearing but no acute distress. HEAD: normocephalic, atraumatic. EYES: PERRL. Sclera clear/white. Vision is grossly intact. EARS: External ears normal, auditory canals clear and without drainage, TMs normal without perforation. Hearing grossly intact. NOSE: External nose normal with clear nasal drainage, congestion THROAT: Mucous membranes moist, posterior pharynx clear. NECK: Neck supple, non-tender without lymphadenopathy, masses or thyromegaly. CARDIOVASCULAR: Regular rate and rhythm without murmurs, gallops, or rubs. RESPIRATORY: Mild expiratory wheezing throughout all lung nava. Breath sounds equal bilaterally. No rales, or rhonchi. SKIN: warm, Dry, intact with no suspicious lesions or rash, good texture and turgor. NEURO: awake, alert, and oriented to person, place and time. There were no obvious focal neurologic abnormalities. EXTREMITIES: No joint
== END 2024-01-13 15:39 | disposition home or self-care (01) ==
PROVIDERS: Emergency Provider Nurse Practitioner Family
DX: J45.901 Unspecified asthma with (acute) exacerbation (principal); Z87.891 Personal history of nicotine dependence; J44.9 Chronic obstructive pulmonary disease, unspecified
CPT/HCPCS: 99213; G0463

== ENCOUNTER 2024-03-05 10:02 | Emergency (ER) | payer MEDICARE, MEDICAID, SELFPAY ==
[2024-03-05 10:08] VITALS: BP 123/76; PULSE 102; RESP 20; TEMP 36.6; O2SAT 98
[2024-03-05] MEDS: methylPREDNISolone SOD SUCC 125 MG VIAL IM (10:33)
[2024-03-05] MEDS: IPRATROPIUM 0.5 MG/ALBUTEROL SULFATE 2.5 MG AMPUL.NEB 3 ML INHALATION (10:33)
--- NOTE | 2024-03-05 10:38 | ED.URI ---
HPI - URI/Sore Throat General Chief Complaint: Asthma Stated Complaint: sob/cough Time Seen by Provider: 03/05/24 10:20 Source: patient, RN notes reviewed and old records reviewed Mode of arrival: ambulatory Limitations: no limitations History of Present Illness HPI Narrative: 39 year old female who presents to [facility] care with complaints of increased symptoms of asthma with severe cough and wheezing for the past 3 days. Patient also reports that her nebulizer machine broke 6 days ago and she is out of inhalers. Patient reports that she was scheduled to see new primary doctor 2 weeks ago and on day of appointment the office called and stated they didn't take her insurance. Patient has quit tobacco use since September of this year. Patient reports tightness to chest with cough and noted audible wheezing, denies any fevers, sore throat or any other ill symptoms. MD elicited complaint: cough and other (shortness of breath) Pertinent past history: asthma Onset (ago): day(s) (3) Consistency: constant Able to tolerate fluids by mouth: Yes Exacerbating factors: exertion Associated symptoms: cough, shortness of breath and other (tightness to chest with cough) Related Data Allergies Allergy/AdvReac Type Severity Reaction Status Date / Time divalproex sodium Allergy Unknown Rash Verified 10/22/23 15:59 lamotrigine Allergy Unknown Unknown Verified 10/22/23 15:59 phenobarbital Allergy Unknown Unknown Verified 10/22/23 15:59 Sulfa (Sulfonamide Allergy Unknown Rash Verified 10/22/23 15:59 Antibiotics) Review of Systems Review of Systems: CONSTITUTIONAL: Denies malaise, chills, sweats, or fever. EYES: Denies visual changes, redness, or discharge. ENT: Reports no rhinorrhea, congestion, sinus pain, otalgia and sore throat. CARDIOVASCULAR: Denies chest pain, palpitations, or edema, states tightness of chest with breathing RESPIRATORY: Reports cough.? Reports dyspnea, audible wheezing GASTROINTESTINAL: Denies abdominal pain, nausea, vomiting, diarrhea SKIN: Denies rash or itching. MUSCULOSKELETAL: Denies myalgia. NEUROLOGIC: Denies headache. All systems reviewed & are unremarkable except as noted in HPI and below PMFSH Past Medical History Medical History (Updated 03/06/24 @ 08:50 by Skyla Peralta NP) Anxiety and depression Asthma Asthma exacerbation COPD (chronic obstructive pulmonary disease) Surgical History Surgical History History of cholecystectomy Family History Family History Mother Cerebrovascular accident Acute myocardial infarction Other Asthma Depression Diabetes mellitus Family history of seizure disorder Hypertension Social History Social History Smoking packs per day: 0.5 Smoking cigarettes per day: 10.0 Years smoked: 12 Smoking pack-years: 6.00 Smoking status: Former smoker Second hand tobacco smoke exposure: Yes Additional smoking assessment comments: 09/11/2023 reports that she quit smoking 1.5 weeks ago Alcohol intake: never Substance use type: does not use Living arrangements: with family Gender identity (if verbalized by the patient): Female Comments At time of signature, agree with nursing past medical, surgical, social and family history. There is no relevant family history pertinent to the presenting complaint Exam Narrative: GENERAL: Well-appearing, well-nourished, and in no acute distress. HEAD: Normocephalic EYES: PERRLA, conjunctivae clear ENT: Nares clear, turbinates edematous and erythematous, clear discharge. Mucous membranes moist. TM pearly shirley with dull light reflex bilaterally; no tragal tenderness. Oropharynx erythematous without lesions. Tonsils not enlarged and without exudate, no drooling, no hoarseness, no trismus, uvula midline. NECK: Supple. No lymphadeno
[2024-03-05 11:52] VITALS: PULSE 108; RESP 24; O2SAT 97
== END 2024-03-05 11:54 | disposition home or self-care (01) ==
PROVIDERS: Emergency Provider Registered Nurse
DX: J45.41 Moderate persistent asthma with (acute) exacerbation (principal); Z87.891 Personal history of nicotine dependence; J44.9 Chronic obstructive pulmonary disease, unspecified
CPT/HCPCS: 96372; 99213; G0463; J2919

== ENCOUNTER 2024-03-24 10:13 | Emergency (ER) | payer MEDICARE, MEDICAID, SELFPAY ==
--- NOTE | ~2024-03-24 | XR_ITS ---
EXAMINATION: XR chest 2V DATE: 03/24/2024 11:58 INDICATION: Cough and shortness of breath. TECHNIQUE: Frontal and lateral views of the chest were obtained. COMPARISON: Chest 2 views 10/04/2023 FINDINGS: There is no pneumonia, pleural effusion, or pneumothorax. The heart size is normal. There i s an old healed right rib fracture. IMPRESSION: 1. No acute cardiopulmonary disease. Reviewed, dictated and finalized at location A.
[2024-03-24 10:26] VITALS: BP 141/89; PULSE 90; RESP 18; TEMP 36.3; O2SAT 100
[2024-03-24 10:32] VITALS: BP 141/89; PULSE 90; RESP 18; TEMP 36.3; O2SAT 100
--- NOTE | 2024-03-24 12:12 | ED.GENADULT ---
HPI - General Adult General Chief complaint: Upper Respiratory Infection Stated complaint: Cough/Congestion/Body Aches Source: patient Mode of arrival: ambulatory Limitations: no limitations History of Present Illness HPI narrative: Patient presents for evaluation of sick symptoms for last 5 days. Symptoms include sinus congestion, thick yellow/green drainage from the nares, chest tightness, productive cough of yellow sputum and mild DAVIS. She denies any fever, chills, nausea, vomiting diarrhea. She has an underlying history of asthma she no longer smokes. Her daughter is being evaluated here for similar symptoms Related Data Allergies Allergy/AdvReac Type Severity Reaction Status Date / Time divalproex sodium Allergy Unknown Rash Verified 03/24/24 10:27 lamotrigine Allergy Unknown Unknown Verified 03/24/24 10:27 phenobarbital Allergy Unknown Unknown Verified 03/24/24 10:27 Sulfa (Sulfonamide Allergy Unknown Rash Verified 03/24/24 10:27 Antibiotics) Review of Systems Review of Systems: CONSTITUTIONAL: Denies fever, chills, or sweats. EYES: Denies visual changes, redness, or discharge. ENT: Reports sinus congestion, thick yellow drainage from nares and sore throat. CARDIOVASCULAR: Denies chest pain, palpitations, or edema. RESPIRATORY: Reports productive cough of yellow sputum and mild DAVIS GASTROINTESTINAL: Denies abdominal pain, nausea, vomiting, or diarrhea. GENITOURINARY: Denies dysuria or hematuria. SKIN: Denies rash or itching. MUSCULOSKELETAL: Denies back pain, joint pain, or myalgia. NEUROLOGIC: Denies headache, numbness, dizziness, or weakness. PSYCHIATRIC: Denies anxiety or depression. ON LICENSE OF [facility] Past Medical History Medical History Anxiety and depression Asthma Asthma exacerbation COPD (chronic obstructive pulmonary disease) Surgical History Surgical History History of cholecystectomy Family History Family History Mother Cerebrovascular accident Acute myocardial infarction Other Asthma Depression Diabetes mellitus Family history of seizure disorder Hypertension Social History Social History Smoking packs per day: 0.5 Smoking cigarettes per day: 10.0 Years smoked: 12 Smoking pack-years: 6.00 Smoking status: Former smoker Second hand tobacco smoke exposure: Yes Additional smoking assessment comments: 09/11/2023 reports that she quit smoking 1.5 weeks ago Alcohol intake: never Substance use type: does not use Living arrangements: with family Gender identity (if verbalized by the patient): Female Exam Narrative: GENERAL: Well-appearing, well-nourished, and in no acute distress. HEAD: Normocephalic, atraumatic. EYES: PERRLA and EOMI. ENT: Bilateral maxillary and frontal sinus tenderness. There is thick yellow drainage in the nares. Oropharynx without tonsillar hypertrophy exudate or other lesions. Bilateral TMs pearly shirley nonbulging NECK: Supple. No adenopathy or masses. No carotid bruits or JVD CHEST: Wheezing and rales noted in all lung nava. Present on exam HEART: Regular rate and rhythm. No murmur heard. Normal peripheral pulses. ABDOMEN: Soft, nontender, nondistended, normal active bowel sounds. EXTREMITIES: Normal range of motion. No edema. SKIN: Warm, dry, no rash. NEURO: No focal deficits. Alert and oriented x3. PSYCH: Normal mood and affect. Course Course Emergency Course: This is a 39-year-old female who presented for evaluation of sick symptoms. Chest x-ray was negative. She does meet criteria for bacterial sinusitis based upon the purulent nature of her discharge. Will discharge with Augmentin and prednisone. Increase hydration. [id number] agents for symptom management. Follow up with prim
== END 2024-03-24 12:15 | disposition home or self-care (01) ==
PROVIDERS: Emergency Provider Nurse Practitioner
DX: J01.90 Acute sinusitis, unspecified (principal); J45.901 Unspecified asthma with (acute) exacerbation; Z87.891 Personal history of nicotine dependence; J44.9 Chronic obstructive pulmonary disease, unspecified
CPT/HCPCS: 71046; 99213; G0463

== ENCOUNTER 2024-05-05 11:05 | Emergency (ER) | payer MEDICARE, MEDICAID, SELFPAY ==
[2024-05-05 11:10] VITALS: BP 133/86; PULSE 99; RESP 20; TEMP 36.8; O2SAT 96
--- NOTE | 2024-05-05 11:25 | ED.URI ---
HPI - URI/Sore Throat General Chief Complaint: Upper Respiratory Infection Stated Complaint: cough/drainage History of Present Illness HPI Narrative: Patient presents with a cough. No shortness of breath no chest pain. Patient states she has had this cough for some time and has been on several antibiotics and is taking multiple [id number] medication for symptoms. No fever no body aches. Patient states she has run out of her medication for her nebulizer at home and has run out of her steroid inhaler. Patient requests refills of both. Related Data Allergies Allergy/AdvReac Type Severity Reaction Status Date / Time divalproex sodium Allergy Unknown Rash Verified 03/24/24 10:27 lamotrigine Allergy Unknown Unknown Verified 03/24/24 10:27 phenobarbital Allergy Unknown Unknown Verified 03/24/24 10:27 Sulfa (Sulfonamide Allergy Unknown Rash Verified 03/24/24 10:27 Antibiotics) Review of Systems Review of Systems: CONSTITUTIONAL: Denies chills, or sweats. Reports fever and generalized body aches EYES: Denies visual changes, redness, or discharge. ENT: Denies otalgia. Reports nasal congestion runny nose and sore throat CARDIOVASCULAR: Denies chest pain, palpitations, or edema. RESPIRATORY: Denies dyspnea. Reports occasional cough GASTROINTESTINAL: Denies abdominal pain, nausea, vomiting, or diarrhea. GENITOURINARY: Denies dysuria or hematuria. SKIN: Denies rash or itching. MUSCULOSKELETAL: Denies back pain, joint pain, or myalgia. Reports generalized body aches NEUROLOGIC: Denies headache, numbness, or weakness. PSYCHIATRIC: Denies anxiety or depression. [facility] Past Medical History Medical History Anxiety and depression Asthma Asthma exacerbation COPD (chronic obstructive pulmonary disease) Surgical History Surgical History History of cholecystectomy Family History Family History Mother Cerebrovascular accident Acute myocardial infarction Other Asthma Depression Diabetes mellitus Family history of seizure disorder Hypertension Social History Social History Smoking packs per day: 0.5 Smoking cigarettes per day: 10.0 Years smoked: 12 Smoking pack-years: 6.00 Smoking status: Former smoker Second hand tobacco smoke exposure: Yes Additional smoking assessment comments: 09/11/2023 reports that she quit smoking 1.5 weeks ago Alcohol intake: never Substance use type: does not use Living arrangements: with family Gender identity (if verbalized by the patient): Female Comments At time of signature, agree with nursing past medical, surgical, social and family history. There is no relevant family history pertinent to the presenting complaint Exam Narrative: The patient is a well-developed, well-nourished in no acute distress. SKIN: Skin is warm and dry without erythema, swelling or exudate. There is good turgor. No tenting. HEAD: Atraumatic. Normocephalic. No temporal or scalp tenderness. EYES: Moist and bright. Sclera and conjunctivae normal. No discharge. PERRLA. Extraocular motions intact. Gross visual acuity intact. EARS: Pinna is normal shape and contour. Clear external auditory canals. TM pearly prince with good cone of light, no erythema or suppuration. Bilateral cerumen noted no gross hearing deficit. NOSE: pink, moist mucosa with good air movement. Clear rhinorrhea without nasal flaring. Septum midline. Mouth: moist mucous membranes. THROAT; mild erythema noted to posterior oropharynx with moderate postnasal drainage. Without exudate or ulceration.. Uvula midline. Normal movement of soft palate. NECK: Supple and nontender with full range of motion without discomfort. No meningeal signs. LUNGS: Equal and bilateral breath sounds without rales or rhonchi. Few scattered expiratory wheezes CHEST: The chest wall is without retractions or use of accessory muscles. HEART: Has a regular rate and rhythm without murmur, gallops, click or rub. ABDOMEN: Soft, nontender with positive active bowel sounds. No rebound tenderness. EXTREMITIES: Without cyanosis, clubbing or edema. Equal 2+ distal pulses and 2 second capillary refill noted. NEUROLOGIC: alert, active, . The patient moves all extremities with normal muscle strength. Normal muscle tone is noted. Normal coordination is noted. NO focal neurological findings noted. Course Course Level of Care: Express Care Visit Vital Signs Vital signs: Vital Signs Temperature 36.8 C 05/05/24 11:10 Pulse Rate 99 05/05/24 11:10 Respiratory Rate 20 05/05/24 11:10 Blood Pressure 133/86 05/05/24 11:10 Pulse Oximetry 96 05/05/24 11:10 Oxygen Delivery Room Air 05/05/24 11:10 Temperature 36.8 C 05/05/24 11:10 Pulse Rate 99 05/05/24 11:10 Respiratory Rate 20 05/05/24 11:10 Blood Pressure 133/86 05/05/24 11:10 Pulse Oximetry 96 05/05/24 11:10 Oxygen Delivery Room Air 05/05/24 11:10 Discharge Plan Discharge Clinical Impression: Upper respiratory infection, Asthma exacerbation, Medication refill Patient Disposition: Home, Self-Care Condition: Stable Instructions: Acute Cough (ED) Additional Instructions: *Throw away your current toothbrush and begin using a new toothbrush in 48 hours in order to prevent re-infection. If anyone else's toothbrush is stored near yours, they should also throw away their current toothbrush and begin using a new one. *Sanitize all reusable water bottles. *Do not share items with others. *Wash your hands often. Supportive care/Soothing measures/Pain relief: *Avoid cigarette smoke (including secondhand smoke) *Avoid acidic foods and beverages *Eat a soft diet for the next 3-4 days *Salt water gargles may alleviate some of the throat discomfort. Most recipes call for ? to ? teaspoon of salt per 8 ounces (approximately 240 mL) of warm water. *You can take tylenol or ibuprofen per the package instructions for pain/fever. *Sipping cold or warm beverages (eg, tea with honey or lemon) *Eat cold or frozen desserts (eg, ice cream, popsicles) *Sucking on ice *Sucking on hard candy Viruses are everywhere and can spread like wildfire. Sx can last up to 3-4 weeks. Treatment is aimed toward your specific symptoms. You must treat your symptoms in order to feel better while the virus runs it's course. Increase fluids especially water. Do not share items with others. You can take Tylenol or ibuprofen per the package instructions for pain/fever. Wash your hands as often as possible. Purchase and begin using an over the counter antihistamine/decongestant combo such as Zyrtec D, Kaci D, Claritin D as well as Flonase nasal spray per the package instructions. Salt water gargles may alleviate some of your throat discomfort. Go to the ER if your symptoms become worse of if ANY new symptoms develop Prescriptions: New albuterol sulfate 2.5 mg /3 mL (0.083 %) solution for nebulization 2.5 mg INHALATION Q4H 2 Days Qty: 75 0RF fluticasone propionate 220 mcg/actuation HFA aerosol inhaler 2 inh inhalation Q12H 30 Days Qty: 12 1RF fluticasone propionate 50 mcg/actuation spray,suspension 2 spray NASAL DAILY 14 Days Qty: 9.9 0RF Rx Instructions: administer into each nostril Zyrtec 10 mg capsule 10 mg PO DAILY 14 Days Qty: 14 0RF No Action (DME) nebulizers [Altera Nebulizer System] Misc See Rx Instructions .Route Qty: 1 0RF Rx Instructions: As directed albuterol sulfate 90 mcg/actuation HFA aerosol inhaler 2 puff inhalation QID PRN (Reason: shortness of breath or wheezing) Qty: 8.5 1RF ipratropium-albuterol 0.5 mg-3 mg(2.5 mg base)/3 mL solution for nebulization 3 ml inhalation QID PRN (Reason: shortness of breath or wheezing) Qty: 180 0RF albuterol sulfate 2.5 mg /3 mL (0.083 %) solution for nebulization 2.5 mg inhalation Q6H PRN (Reason: shortness of breath or wheezing) Qty: 75 0RF montelukast [Singulair] 10 mg tablet 10 mg PO HS 30 Days Qty: 30 0RF fluticasone propionate [Flonase Allergy Relief] 50 mcg/actuation spray,suspension 1 spray intranasal BID Qty: 16 0RF Rx Instructions: administer into each nostril budesonide-formoterol [Symbicort] 80-4.5 mcg/actuation HFA aerosol inhaler 2 puff inhalation BID 30 Days Qty: 10.2 0RF Follow-up/Referrals: [facility] [Primary Care Provider] -
== END 2024-05-05 11:40 | disposition home or self-care (01) ==
PROVIDERS: Emergency Provider Nurse Practitioner Family
DX: J06.9 Acute upper respiratory infection, unspecified (principal); J45.901 Unspecified asthma with (acute) exacerbation; Z87.891 Personal history of nicotine dependence; J44.9 Chronic obstructive pulmonary disease, unspecified
CPT/HCPCS: 99213; G0463

== ENCOUNTER 2024-05-24 16:05 | Emergency (ER) | payer MEDICARE, MEDICAID, SELFPAY ==
--- NOTE | ~2024-05-24 | XR_ITS ---
EXAMINATION: XR chest 2V DATE: 05/24/2024 17:00 INDICATION: Shortness of breath and cough. TECHNIQUE: Frontal and lateral views of the chest were obtained. COMPARISON: Chest 2 views 03/24/2024 FINDINGS: There is mild atelectasis in right middle lobe. No pleural effusion or pneumothorax. The he art size is normal. There is an old healed fracture of right sixth rib. Surgical clips in the right u pper quadrant are likely from cholecystectomy. IMPRESSION: 1. Mild atelectasis in right middle lobe. Reviewed, dictated and finalized at location [facility]. [employer]
[2024-05-24 16:22] VITALS: BP 133/78; PULSE 114; RESP 16; TEMP 37.1; O2SAT 98
[2024-05-24 16:37] LABS: EDCOVIDSCREEN Negative (Negative); EDINFLUASCREEN Negative (Negative); EDINFLUBSCREEN Negative (Negative)
--- NOTE | 2024-05-24 16:44 | ED.URI ---
HPI - URI/Sore Throat General Chief Complaint: Upper Respiratory Infection Stated Complaint: chills/aches/sob/cough Time Seen by Provider: 05/24/24 16:37 Source: patient and RN notes reviewed Mode of arrival: ambulatory Limitations: no limitations History of Present Illness HPI Narrative: Patient presents today complaining of a 4 day history of subjective fever, cough, chills, body aches, wheezing and mild shortness of breath. Extensive history of asthma. She has been using her albuterol neb treatments as well as ibuprofen with some mild relief. Her last treatment was approximately 4 hours prior to arrival. Related Data Allergies Allergy/AdvReac Type Severity Reaction Status Date / Time divalproex sodium Allergy Unknown Rash Verified 05/05/24 11:40 lamotrigine Allergy Unknown Unknown Verified 05/05/24 11:40 phenobarbital Allergy Unknown Unknown Verified 05/05/24 11:40 Sulfa (Sulfonamide Allergy Unknown Rash Verified 05/05/24 11:40 Antibiotics) Review of Systems Review of Systems: CONSTITUTIONAL: Denies sweats.+ body aches, chills, subjective fever EYES: Denies visual changes, redness, or discharge. ENT: Denies rhinorrhea, congestion, sore throat, or otalgia. CARDIOVASCULAR: Denies chest pain, palpitations, or edema. RESPIRATORY: + cough, shortness of breath, wheezing GASTROINTESTINAL: Denies abdominal pain, nausea, vomiting, or diarrhea. GENITOURINARY: Denies dysuria or hematuria. SKIN: Denies rash, itching, or wounds. MUSCULOSKELETAL: Denies back pain, joint pain, or myalgia. NEUROLOGIC: Denies headache, numbness, tingling, or weakness. PSYCH: Denies depression or anxiety. [facility] Past Medical History Medical History Anxiety and depression Asthma Asthma exacerbation COPD (chronic obstructive pulmonary disease) Surgical History Surgical History History of cholecystectomy Family History Family History Mother Cerebrovascular accident Acute myocardial infarction Other Asthma Depression Diabetes mellitus Family history of seizure disorder Hypertension Social History Social History (Reviewed 05/24/24 @ 16:47 by Brittney Klein, [facility], ) Smoking packs per day: 0.5 Smoking cigarettes per day: 10.0 Years smoked: 12 Smoking pack-years: 6.00 Smoking status: Former smoker Second hand tobacco smoke exposure: Yes Additional smoking assessment comments: 09/11/2023 reports that she quit smoking 1.5 weeks ago Alcohol intake: never Substance use type: does not use Living arrangements: with family Gender identity (if verbalized by the patient): Female Comments At time of signature, I have reviewed and agree with nursing past medical, surgical, social and family history unless otherwise noted. Please see nursing chart for further information. There is no relevant family history pertinent to the presenting complaint Exam Narrative: GENERAL: Mildly ill-appearing, well-nourished, and in no acute distress. HEAD: Normocephalic, atraumatic. EYES: EOMI. No redness or drainage. Conjunctivae normal. ENT: Mucous membranes pink and moist. Nares clear. No rhinorrhea. TMs normal bilaterally. Throat normal. Uvula midline. NECK: Normal AROM. Supple. No lymphadenopathy. CHEST: No respiratory distress. Tight, decreased aeration throughout, expiratory wheezing throughout HEART: Regular rate and rhythm. No murmur appreciated. EXTREMITIES: Normal range of motion. No edema. SKIN: Warm, dry, no rash. Capillary refill normal. Normal skin turgor. NEURO: No focal deficits. Alert and oriented x3. Gait steady. PSYCH: Normal affect. No signs of depression or anxiety. Course Course Level of Care: Express Care Visit Vital Signs Vital signs: Vital Signs Temperature 98.7 F 05/24/24 16:22 Pulse Rate 114 H 05/24/24 16:22 Respiratory Rate 16 05/24/24 16:22 Blood Pressure 133/78 05/24/24 16:22 Pulse Oximetry 98 05/24/24 16:22 Temperature 98.7 F 05/24/24 16:22 Pulse Rate 114 H 05/24/24 16:22 Respiratory Rate 16 05/24/24 16:22 Blood Pressure 133/78 05/24/24 16:22 Pulse Oximetry 98 05/24/24 16:22 Reviewed MDM - URI/Sore Throat MDM Narrative Medical decision making narrative: COVID and influenza negative. Chest x-ray is negative for pneumonia. Patient will be started on short course of steroids as well as some antibiotics to treat for possible bacterial infection as she is a brittle asthmatic. Recommend that she talk to her PCP about getting referred to pulmonology. She would also like some cough medicine as she is having difficulty sleeping. Prescription for Tessalon sent as well. Anticipatory guidance given. Differential Diagnosis Differential diagnosis: Likely upper respiratory infection, viral infection, bronchitis, influenza and other (Pneumonia, asthma exacerbation, COVID) Lab Data Attestation: I reviewed the patient's lab results. Labs: Lab Results 05/24/24 Range/Units 16:35 POC Influenza A Ag Negative (Negative) POC Influenza B Ag Negative (Negative) POC SARS CoV-2 Ag Negative (Negative) Imaging Data Radiologist's impression: ITS Impressions Chest X-Ray 05/24/24 17:03 IMPRESSION: 1. Mild atelectasis in right middle lobe. Critical Care Time Critical Care Time Critical Care Time: No Discharge Plan Discharge Clinical Impression: Acute lower respiratory infection Asthma exacerbation Qualifiers: Asthma severity: unspecified severity Asthma persistence: unspecified Qualified Code(s): J45.901 - Unspecified asthma with (acute) exacerbation Patient Disposition: Home, Self-Care Condition: Stable Instructions: Asthma (DC) Additional Instructions: Please take all medications as prescribed. Continue your albuterol nebulizer treatments as well. Follow-up with your PCP regarding referral to pulmonology. Go to the ER if symptoms worsen. Your blood pressure was elevated above 120/80 today at Urgent Care. This puts you above the threshold for follow up. Please schedule a followup visit with your personal physician as soon as possible, for further evaluation and treatment. Even blood pressure exceeding 120/80 may indicate pre-hypertension. Prescriptions: New benzonatate 200 mg capsule 200 mg PO TID PRN (Reason: cough) Qty: 20 0RF prednisone 50 mg tablet 50 mg PO DAILY 5 Days Qty: 5 0RF amoxicillin-pot clavulanate 875-125 mg tablet 1 tablet PO Q12H 7 Days Qty: 14 0RF No Action (DME) nebulizers [Altera Nebulizer System] Misc See Rx Instructions .Route Qty: 1 0RF Rx Instructions: As directed albuterol sulfate 90 mcg/actuation HFA aerosol inhaler 2 puff inhalation QID PRN (Reason: shortness of breath or wheezing) Qty: 8.5 1RF albuterol sulfate 2.5 mg /3 mL (0.083 %) solution for nebulization 2.5 mg INHALATION Q4H 2 Days Qty: 75 0RF fluticasone propionate 220 mcg/actuation HFA aerosol inhaler 2 inh inhalation Q12H 30 Days Qty: 12 1RF fluticasone propionate 50 mcg/actuation spray,suspension 2 spray NASAL DAILY 14 Days Qty: 9.9 0RF Rx Instructions: administer into each nostril Zyrtec 10 mg capsule 10 mg PO DAILY 14 Days Qty: 14 0RF ipratropium-albuterol 0.5 mg-3 mg(2.5 mg base)/3 mL solution for nebulization 3 ml inhalation QID PRN (Reason: shortness of breath or wheezing) Qty: 180 0RF albuterol sulfate 2.5 mg /3 mL (0.083 %) solution for nebulization 2.5 mg inhalation Q6H PRN (Reason: shortness of breath or wheezing) Qty: 75 0RF montelukast [Singulair] 10 mg tablet 10 mg PO HS 30 Days Qty: 30 0RF fluticasone propionate [Flonase Allergy Relief] 50 mcg/actuation spray,suspension 1 spray intranasal BID Qty: 16 0RF Rx Instructions: administer into each nostril budesonide-formoterol [Symbicort] 80-4.5 mcg/actuation HFA aerosol inhaler 2 puff inhalation BID 30 Days Qty: 10.2 0RF Follow-up/Referrals: PHYSICIAN NOT ON STAFF,NONSTAFF [Primary Care Provider] - Time of Disposition: 17:53
[2024-05-24] MEDS: ALBUTEROL SULFATE NEB 2.5 MG/3 ML INH INHALATION (17:05)
[2024-05-24] MEDS: IPRATROPIUM BR 0.02% INH SOLN 0.5 MG/2.5 ML VIAL INHALATION (17:05)
== END 2024-05-24 18:01 | disposition home or self-care (01) ==
PROVIDERS: Emergency Provider Nurse Practitioner
DX: J22 Unspecified acute lower respiratory infection (principal); J45.901 Unspecified asthma with (acute) exacerbation; Z20.822 Contact with and (suspected) exposure to COVID-19; Z87.891 Personal history of nicotine dependence; J44.9 Chronic obstructive pulmonary disease, unspecified
CPT/HCPCS: 71046; 87426; 87804; 94640; 99203; G0463

== ENCOUNTER 2025-06-03 15:44 | Emergency (ER) | payer MEDICARE, MEDICAID, SELFPAY ==
[2025-06-03 15:48] VITALS: BP 126/69; PULSE 108; RESP 20; TEMP 36.6; O2SAT 97
--- NOTE | 2025-06-03 16:02 | ED_ITS ---
HPI - SOB/Dyspnea General Chief Complaint: Shortness of Breath/Dyspnea Stated Complaint: Breathing Problem Time Seen by Provider: 06/03/25 16:02 Source: patient, RN notes reviewed and old records reviewed Mode of arrival: ambulatory Limitations: no limitations History of Present Illness HPI Narrative: 40 year old female who presents to [facility] care with complaints of shortness of breath since evening and was seen in the emergency room and given nebulizer treatment, steroid shot, diagnosed with pneumonia and sent home with antibiotic and medrol dose pack. Patient reports that she feels tight in her ch est and has pain in her upper back and can't seem to get mucous to break up did nebulizer treatment last this morning. Patient reports that the medrol dose packs never work she needs prednisone instead. Patient with obvious dyspnea and scattered wheezing throghout lung nava noted. MD elicited complaint: shortness of breath and anxiety (wheezing, tightness to c hest and pain upper back) Pertinent past history: asthma and pneumonia Onset (ago): day(s) (5) Severity: similar to previous episodes Treatment prior to arrival: bronchodilator and other (nebulizer treatment antibiotic and medrol dose pack) Related Data Allergies Allergy/AdvReac Type Severity Reaction Status Date / Time divalproex sodium Allergy Unknown Rash Verified 06/03/25 15:54 lamotrigine Allergy Unknown Unknown Verified 06/03/25 15:54 phenobarbital Allergy Unknown Unknown Verified 06/03/25 15:54 Sulfa (Sulfonamide Allergy Unknown Rash Verified 06/03/25 15:54 Antibiotics) Review of Systems Review of Systems: CONSTITUTIONAL: Reports malaise, no chills, sweats, or fever. EYES: Denies visual changes, redness, or discharge. ENT: Reports no rhinorrhea, congestion, sinus pain, otalgia and no sore throat. CARDIOVASCULAR: Denies chest pain, palpitations, or edema. tightness to chest with shortness of breath RESPIRATORY: Reports cough.? presents with dyspnea Hx of asthma and has pneumonia. GASTROINTESTINAL: Denies abdominal pain, nausea, vomiting, diarrhea SKIN: Denies rash or itching. MUSCULOSKELETAL:Reports upper back pain NEUROLOGIC: Denies headache. All systems reviewed & are unremarkable except as noted in HPI and below PMFSH Past Medical History Medical History (Updated 06/04/25 @ 18:23 by Skyla Peralta APRN) Pneumonia Anxiety and depression Asthma exacerbation COPD (chronic obstructive pulmonary disease) Asthma Surgical History Surgical History History of cholecystectomy Family History Family History Mother Cerebrovascular accident Acute myocardial infarction Other Asthma Depression Diabetes mellitus Family history of seizure disorder Hypertension Social History Social History Smoking packs per day: 0.5 Smoking cigarettes per day: 10.0 Years smoked: 12 Smoking pack-years: 6.00 Smoking status: Former smoker Second hand tobacco smoke exposure: Yes Additional smoking assessment comments: 09/11/2023 reports that she quit smoking 1.5 weeks ago Alcohol intake: never Substance use type: does not use Living arrangements: with family Gender identity (if verbalized by the patient): Female Comments At time of signature, agree with nursing past medical, surgical, social and family history. There is no relevant family history pertinent to the presenting complaint Exam Narrative: GENERAL: Well-appearing, well-nourished, and in some acute distress. HEAD: Normocephalic EYES: PERRLA, conjunctivae clear ENT: Nares clear, turbinates edematous and erythematous, clear discharge. Mucous membranes moist. TM pearly shirley with dull light reflex bilaterally; no tragal tenderness. Oropharynx erythematous without lesions. Tonsils not enlarged and without exudate, no drooling, no hoarseness, no trismus, uvula midline,post nasal drainage. NECK: Supple. No lymphadenopathy CHEST: Scattered wheezing throughout lung nava, breath sounds equal.+ wheezing, no rhonchi, rales, or stridor. No respiratory distress, speaks in full sentences.cough noted and some tachypnea on arrival SAO2 97% on room air HEART: Regular rate and rhythm. No murmur heard. SKIN: Warm, dry, no rash. NEURO: Alert and oriented x3. PSYCH: Normal mood and affect Course Course Level of Care: Express Care Visit Vital Signs Vital signs: Vital Signs Temperature 36.6 C 06/03/25 15:48 Pulse Rate 108 H 06/03/25 15:48 Respiratory Rate 20 06/03/25 15:48 Blood Pressure 126/69 06/03/25 15:48 Pulse Oximetry 97 06/03/25 15:48 Oxygen Delivery Room Air 06/03/25 15:48 Temperature 36.6 C 06/03/25 15:48 Pulse Rate 108 H 06/03/25 15:48 Respiratory Rate 20 06/03/25 15:48 Blood Pressure 126/69 06/03/25 15:48 Pulse Oximetry 97 06/03/25 15:48 Oxygen Delivery Room Air 06/03/25 15:48 reviewed MDM MDM Narrative Medical decision making narrative: Patient received Duo Neb while in clinic with decrease in wheezing noted and patient was able cough up some mucous and less tightness and discomfort to back after treatment. Differential Diagnosis Differential Diagnosis: exacerbation of asthma, pneumonia, dyspnea, tachypnea with wheezing. Critical Care Time Critical Care Time Critical Care Time: No Discharge Plan Discharge Clinical Impression: Shortness of breath Asthma exacerbation Qualifiers: Asthma severity: moderate Asthma persistence: persistent Qualified Code(s): J45.41 - Moderate persistent asthma with (acute) exacerbation Patient Disposition: Home Condition: Stable Instructions: Antibiotic Form, Bronchospasm (ED) Additional Instructions: Increase fluids especially juices and water [id number] cough and cold medicine of your choice for your symptoms encourage expectorant such as Mucinex Continue your inhaler/nebulizer as directed Steroids as directed--take with food Increase to prednisone to 50 mg po daily for 5 days heat to the face 20-30 minutes 4-6 times a day for pain Salt water gargles, throat lozenges or throat sprays as desired Antibiotic as directed--finish the medication as prescribed by ED last weekend If your symptoms persist, change or worsen significantly before you can contact your personal physician then please, without delay, go to the emergency department for further evaluation. Follow-up with PCP in 7-10 days or sooner if needed Patient Language: Macedonian Prescriptions: New prednisone 50 mg tablet 50 mg PO DAILY 5 Days Qty: 5 0RF montelukast 10 mg tablet 10 mg PO HS Qty: 30 0RF No Action (DME) nebulizers [Altera Nebulizer System] Misc See Rx Instructions .Route Qty: 1 0RF Rx Instructions: As directed albuterol sulfate 90 mcg/actuation HFA aerosol inhaler 2 puff inhalation QID PRN (Reason: shortness of breath or wheezing) Qty: 8.5 1RF albuterol sulfate 2.5 mg /3 mL (0.083 %) solution for nebulization 2.5 mg INHALATION Q4H 2 Days Qty: 75 0RF ipratropium-albuterol 0.5 mg-3 mg(2.5 mg base)/3 mL solution for nebulization 3 ml inhalation QID PRN (Reason: shortness of breath or wheezing) Qty: 180 0RF albuterol sulfate 2.5 mg /3 mL (0.083 %) solution for nebulization 2.5 mg inhalation Q6H PRN (Reason: shortness of breath or wheezing) Qty: 75 0RF montelukast [Singulair] 10 mg tablet 10 mg PO HS 30 Days Qty: 30 0RF Follow-up/Referrals: PHYSICIAN,ASTROPHYSICS TEACHER [Primary Care Provider, Internal Medicine] Time of Disposition: 16:26 Quality [place] Coma Scale Eyes: Open Verbal: Oriented and Alert Motor: Follows Commands [place] Coma Total Score: 15
--- OUTSIDE RECORDS SUMMARY | 2025-06-03 16:02 | XMS_ITS | Clinical Summary ---
Author Organization [facility] Address [address] [place] [address] Phone Care Team Providers Care Roll Threader Operator Name Role Phone Irina Zelaya APRN, IZABELLA Unavailable Provider, None Primary Care Provider Unavailabl e Allergies Active Allergy Reactions Criticality Noted Date Comments Divalproex Sodium Shortness of Breath 7 Phenobarbital Unknown,Swelling High 07/21/2015 Sulfa Antibiotics Unknown 07/21/2015 Ketorolac Tromethamine Itching,Swelling 017 Valproic Acid Anaphylaxis,Other (see Comments) Low 07/18/2016 seizures Reaction: ANAPHYLAXIS Medications albuterol (PROVENTIL, VENTOLIN) (2.5 MG/3ML) 0.083% Nebulizer SolnIndications: Severe persistent asthma with acute exacerbation 3 mL by Nebulization route every 4 hours as needed for Wheezing, Shortness of Breath or Cough. 75 mL 5 Active montelukast (SINGULAIR) 10 MG TabletIndication s:Asthma Take 1 Tablet by mouth daily. Indications: Asthma 90 Tablet 5 Active albuterol 108 (90 Base) MCG/ACT Aerosol SolutionIndicati ons:Severe persistent asthma with acute exacerbation INHALE 2 PUFFS BY MOUTH EVERY 6 HOURS NEEDED FOR COUGH 6.7 g 3 5 Active Trelegy Ellipta 100-62.5-25 MCG/ACT AEROSOL POWDER, BREATH ACTIVATEDIndicat ions:Severe persistent asthma with acute exacerbation INHALE 1 PUFF EVERY DAY 60 Each 5 5 Active Dupilumab (Dupixent) 300 MG/2ML Solution Auto-injectorInd ications:Severe persistent asthma with acute exacerbation,Oth er eosinophilia INJECT 300 MG UNDER THE SKIN EVERY 2 WEEKS 12 mL 5 Active methylPREDNISolo ne (MEDROL DOSPACK) 4 MG Tablet Therapy Pack See product package insert for dosing schedule 21 Tablet 5 Active azithromycin (ZITHROMAX) 250 MG Tablet Take two tabs on day 1, one tab daily on days 2-5 6 Tablet 5 025 Active Active Problems Problem Noted Date Diagnosed Date Snoring 10/08/2024 Left wrist tendinitis 01/23/2023 Stiffness of left hand, not elsewhere classified 07/26/2016 Lumbar radiculopathy 04/08/2015 Overview (07/19/2024): Lumbar radiculopathy Tobacco use disorder 09/17/2014 Overview (07/19/2024): Smoker Chronic back pain 08/30/2014 Overview (07/19/2024): Chronic back pain Neck pain 08/30/2014 Overview (07/19/2024): Neck pain Endometriosis 08/29/2014 Overview (07/19/2024): Endometriosis Chronic pancreatitis 05/09/2014 Overview (07/19/2024): Chronic pancreatitis Depression 05/09/2014 Overview (07/19/2024): Depression Generalized anxiety disorder 04/02/2013 Overview (07/19/2024): Generalized anxiety disorder Complex partial seizure evolving to generalized seizure 03/06/2013 Overview (07/19/2024): Complex partial seizures evolving to generalized t COPD (chronic obstructive pulmonary disease) Asthma Seizures Encounters Date Type Department Care Team Description 06/01/2025 5:17 AM WATCH AND CLOCK REPAIRER - 06/01/2025 7:07 AM WATCH AND CLOCK REPAIRER Emergency [facility] Emergency [address] [place] [address] Yovani Espino MD Engdahl, Romeo Melvin MD Wheezing Discharge Disposition: Discharged to home or Selfcare 06/01/2025 Telephone [facility] Emergency [address] [place] [address] Cristian Quarles, CASE MGR Follow-up 06/01/2025 Results [facility] [address] [place] [address] Tyrell Logan, PAC XR CHEST SINGLE VIEW PORTABLE 05/27/2025 Patient Outreach [facility] [address] [place] [phone] Ramila Sanders APRN, DRILL PRESSER 05/16/2025 1:30 PM WATCH AND CLOCK REPAIRER Telemedicine [facility] [address] [place] [phone] Ramila Sanders VP OF GLOBAL MARKETING, DRILL PRESSER Severe persistent asthma, unspecified whether complicated (Primary Dx) 05/16/2025 [facility] - [address] [place] [address] Irina Zelaya APRN, DRILL PRESSER 05/16/2025 Travel 05/16/2025 Nurse Triage [facility] [address] [place] [phone] Mar Gamboa, RENETTA Asthma 04/24/2025 1:00 PM CDT Telemedicine [facility] [address] [place] [phone] Austin Chowdhury, SERGEY, DRILL PRESSER Upper respiratory tract infection, unspecified type (Primary Dx); Asthma with COPD with exacerbation 04/24/2025 Travel 04/24/2025 Nurse Triage [facility] [address] [place] [phone] Dana Walters RN Asthma; Cough 04/15/20[facility] [address] [place] [address] Irina Zelaya APRN, IZABELLA Medication Refill 04/11/2025 [facility] [address] [place] [address] Irina Zelaya APRN, IZABELLA Medication Refill 04/07/2025 1:30 PM CDT Telemedicine [facility] [address] [place] [phone] Maria Fernanda Ortiz APRN, IZABELLA Wheezing (Primary Dx); Severe persistent asthma, unspecified whether complicated; SOB (shortness of breath) on exertion 04/07/2025 Travel 04/07/2025 Nurse Triage [facility] [address] [place] [phone] Mildred Vanegas RN Asthma 04/06/2025 [facility] [address] [place] [address] Irina Zelaya APRN, IZABELLA Medication Refill 03/15/2025 8:30 PM CDT Telemedicine [facility] [address] [place] [phone] Maria Fernanda Ortiz APRN, DRILL PRESSER Severe persistent asthma with exacerbation (Primary Dx); Acute non-recurrent pansinusitis 03/15/2025 Travel 03/15/2025 Nurse Triage [facility] [address] [place] [phone] Jamin Ortiz RN Wheezing 03/08/2025 11:05 AM CDT - 03/08/2025 1:50 PM CDT Emergency [facility] Emergency 1 [facility] [place] [address] Pilar Lopez, VP OF GLOBAL MARKETING, DRILL PRESSER Asthma exacerbation Discharge Disposition: Discharged to home or Selfcare 03/08/2025 Travel from Last 3 Months Immunizations Immunization Administration Dates Next Due Covid-19, Mrna, Lnp-s, Pf, 1 00 Mcg Or 50 Mcg Dose (MODERNA) 10/22/2020,10/01/2020 Influenza Vaccine 05/22/2013 Influenza Vaccine greater than 3 yrs 05/06/2016 Influenza Vaccine, Quadrivalent, PF 08/31/2019 Influenza, Injectable, Quadrivalent 04/29/2020 Pneumococcal Vaccine Adult - 23 Valent 3 TDAP Vaccine 12/18/2020,03/21/2018 Social History Tobacco Use Types Packs/Day Years Used Date Smoking Tobacco: Former Cigarettes 0 Q uit: 05/04/2024 Smokeless Tobacco: Never Tobacco Cessation:Counseling Given: Not Answered Comments:Patient reported quitting in May of 2024. Prior to that she was smoking 0.5 pack per day. Alcohol Use Standard Drinks/Week Comments Never 0 (1 standard drink = 0.6 oz pur e alcohol) PHQ-2 Answer Date Recorded PHQ-2 Score 0 03/30/2019 Comments No Sex and Gender Information Value Date Recorded Sex Assigned at Not on file Legal Sex Female 12:13 AM CDT Gender Identity Not on file Sexual Orientation Not on file Last Filed Vital Signs Vital Sign Reading Time Taken Comments Blood Pressure 128/78 06/01/2025 7:00 AM WATCH AND CLOCK REPAIRER Pulse 99 06/01/2025 7:00 AM WATCH AND CLOCK REPAIRER Temperature 37.2 C (98.9 F) 06/01/2025 5:18 AM WATCH AND CLOCK REPAIRER Respiratory Rate 16 06/01/2025 6:36 AM WATCH AND CLOCK REPAIRER Oxygen Saturation 99% 06/01/2025 7:00 AM WATCH AND CLOCK REPAIRER Inhaled Oxygen Concentration - - Weight 107.2 kg (236 lb 5.3 oz) 06/01/2025 5:18 AM WATCH AND CLOCK REPAIRER Height 172.7 cm (5' 8) 06/01/2025 5:18 AM WATCH AND CLOCK REPAIRER Body Mass Index 35.93 06/01/2025 5:18 AM WATCH AND CLOCK REPAIRER Plan of Treatment Upcoming Encounters Date Type Department Care Team (Late st Contact Info) Description 08/05/2025 3:30 PM WATCH AND CLOCK REPAIRER Office Visit [facility] - Pulmonology & [facility] Medicine - [place] [place] [address] Irina Zelaya, VP OF GLOBAL MARKETING, DRILL PRESSER [address] [place] [address] Health Maintenance Due Date Last Done Comments Hepatitis C Virus (HCV) Screening 1985 Mammogram 1985 Varicella Immunization (1 of 2 - 13+ 2-dose series) 1998 Hepatitis B Immunization (1 of 3 - 19+ 3-dose series) 01/06/2004 Pap Smear 2006 Medicare Initial AWV [id number] 03/04/2009 Human Papillomavirus (HPV) Immunization (1 - 3-dose SCDM series) 01/06/2012 Pneumococcal Immunization Combined (2 of 2 - PCV) 05/22/2014 05/22/2013 Cervical Cancer Screening (CCS) 2015 HPV/Cotest 2015 Discussion re Starting/Frequency of Mammograms 2025 Influenza Immunization (#1) 03/04/202504/04, 08/31/2019, 05/06/2016, Additional history exists SARS-COV-2 Immunization ( season) 2025 07/11/2021, 07/11/2021, 10/22/2020, Additional history exists Td Immunization Every 10 Years (Adults With 1 Tdap) 12/18/2030 12/18/2020, 03/21/2018, 09/22/2015 Respiratory Syncytial Virus (RSV) Immunization (Adult) (1 - 1-dose 75+ series) 01/06/2060 Meningococcal Immunization (ACWY) Aged Out No longer eligible based on patient's age to complete this topic Rotavirus Immunization Aged Out No lo nger eligible based on patient's age to complete this topic Procedures Procedure Name Priority Date/Time Associated Diagnosis Comments AEROSOL NEBULIZER-SUBSEQUENT STAT 06/01/2025 6:41 AM WATCH AND CLOCK REPAIRER XR CHEST SINGLE VIEW PORTABLE STAT 06/01/2025 6:00 AM WATCH AND CLOCK REPAIRER CBC WITH AUTO DIFFERENTIAL STAT 06/01/2025 5:37 AM WATCH AND CLOCK REPAIRER MAGNESIUM (MG) STAT 06/01/2025 5:37 AM WATCH AND CLOCK REPAIRER CMP (COMPREHENSIVE METABOLIC PANEL) STAT 06/01/2025 5:37 AM WATCH AND CLOCK REPAIRER COMPLETE BLOOD COUNT (CBC) WITH DIFF STAT 06/01/2025 5:37 AM WATCH AND CLOCK REPAIRER AEROSOL NEBULIZER-INITIAL STAT 06/01/2025 5:25 AM WATCH AND CLOCK REPAIRER XR LUMBAR SPINE 2 OR 3 VIEWS STAT 03/08/2025 11:44 AM CDT XR CHEST SINGLE VIEW PORTABLE STAT 03/08/2025 10:27 AM CDT GROUP A STREP BY PCR STAT 03/08/2025 10:13 AM CDT RSV,SARS-COV-2,INFLUE NZA A&B BY PCR STAT 03/08/2025 10:13 AM CDT from Last 3 Months Results * XR CHEST SINGLE VIEW PORTABLE (06/01/2025 6:00 AM WATCH AND CLOCK REPAIRER) Only the most recent of2 resultswithin the time period is included. Anatomical Region Laterality Modality Chest N/A Digital Radiogra phy 06/01/2025 6:00 AM WATCH AND CLOCK REPAIRER Impressions 06/01/2025 7:09 AM WATCH AND CLOCK REPAIRER IMPRESSION: Possible hazy opacity overlying the right upper lobe, perhaps infectious/inflammatory. Attention on follow-up can be performed to ensure resolution. Narrative 06/01/2025 7:09 AM WATCH AND CLOCK REPAIRER DICTATING PHYSICIAN: Ramon Calderon M.D. - [facility] EXAM: XR CHEST SINGLE VIEW PORTABLE 06/01/2025 6:00 AM HISTORY: Asthma exacerbation. COMPARISON: 03/08/2025. FINDINGS: The cardiomediastinal silhouette is stable in size and contour. No significant pulmonary vascular congestion. There is no pneumothorax. Possible small hazy opacity within the right upper lobe. No pleural effusion. Chronic, healed right posterior rib deformity. No acute or suspicious osseous lesions demonstrated. Procedure Note Ramon Calderon MD - 06/01/2025 DICTATING PHYSICIAN: Ramon Calderon M.D. - [facility] EXAM: XR CHEST SINGLE VIEW PORTABLE 06/01/2025 6:00 AM HISTORY: Asthma exacerbation. COMPARISON: 03/08/2025. FINDINGS: The cardiomediastinal silhouette is stable in size and contour. Nosignificant pulmonary vascular congestion. There is no pneumothorax.Possible small hazy opacity within the right upper lobe. No pleuraleffusion. Chronic, healed right posterior rib deformity. No acute orsuspicious osseous lesions demonstrated. IMPRESSION: Possible hazy opacity overlying the right upper lobe, perhapsinfectious/inflammatory. Attention on follow-up can be performed toensure resolution. Yovani Espino MD IMG DIAGNOSTIC ORDERABLES Final Result * (ABNORMAL) CBC with Auto Differential (06/01/2025 5:37 AM WATCH AND CLOCK REPAIRER) WBC 9.69 4.00 - 12.00 10(3)/mcL 06/01/2025 5:50 AM WATCH AND CLOCK REPAIRER [facility] RBC 4.97 3.80 - 5.30 10(6)/mcL 06/01/2025 5:50 AM WATCH AND CLOCK REPAIRER [facility] HEMOGLOBIN (HGB) 14.8 12.0 - 15.8 g/dL 06/01/2025 5:50 AM WATCH AND CLOCK REPAIRER [facility] HEMATOCRIT (HCT) 42.5 36.0 - 47.0 % 06/01/2025 5:50 AM WATCH AND CLOCK REPAIRER [facility] MCV 85.5 82.0 - 96.0 fL 06/01/2025 5:50 AM WATCH AND CLOCK REPAIRER [facility] MCH 29.8 26.0 - 34.0 pg 06/01/2025 5:50 AM WATCH AND CLOCK REPAIRER [facility] MCHC 34.8 31.0 - 36.0 g/dL 06/01/2025 5:50 AM WATCH AND CLOCK REPAIRER [facility] PLATELET COUNT 334 140 - 440 10(3)/[facility] 06/01/2025 5:50 AM [facility] RDW 12.7 11.8 - 15.5 % 06/01/2025 5:50 AM [facility] MPV 9.4(L) 9.7 - 12.4 fL 06/01/2025 5:50 AM [facility] NEUTROPHILS 60.9 47.0 - 73.0 % 06/01/2025 5:50 AM [facility] LYMPHOCYTES 28.6 18.0 - 42.0 % 06/01/2025 5:50 AM [facility] MONOCYTES 9.0 4.0 - 12.0 % 06/01/2025 5:50 AM [facility] EOSINOPHILS 1.0 0.0 - 5.0 % 06/01/2025 5:50 AM [facility] BASOPHILS 0.2 0.0 - 1.0 % 06/01/2025 5:50 AM [facility] IMMATURE GRANULOCYTE 0.3 0.0 - 0.4 % 06/01/2025 5:50 AM [facility] ABSOLUTE NEUTROPHILS 5.90 1.60 - 7.70 10(3)/[facility] 06/01/2025 5:50 AM [facility] ABSOLUTE LYMPHOCYTES 2.77 1.30 - 3.20 10(3)/[facility] 06/01/2025 5:50 AM [facility] ABSOLUTE MONOCYTES 0.87 0.20 - 1.00 10(3)/[facility] 06/01/2025 5:50 AM [facility] ABSOLUTE EOSINOPHIL 0.10 0.00 - 0.40 10(3)/[facility] 06/01/2025 5:50 AM [facility] ABSOLUTE BASOPHILS 0.02 0.00 - 0.10 10(3)/[facility] 06/01/2025 5:50 AM [facility] ABSOLUTE IMMATURE GRANULOCYTE 0.03 0.00 - 0.03 10 (3) mcL. 06/01/2025 5:50 AM [facility] NRBC PER 100 WBC 0 06/01/20 5:50 AM WATCH AND CLOCK REPAIRER [facility] Blood Venipuncture / Unknown 06/01/2025 5:37 AM WATCH AND CLOCK REPAIRER 06/01/2025 5:47 AM WATCH AND CLOCK REPAIRER Yovani Espino MD HEMATOLOGY ORDERABLES Fin al Result Performing Organization Address City/[facility]/ZIP Co de Phone Number [facility] [address] [place] [address] * MAGNESIUM (MG) (06/01/2025 5:37 AM WATCH AND CLOCK REPAIRER) Pathologist [facility] MAGNESIUM 1.8 1.6 - 2.6 mg/dL 06/01/2025 6:08 AM [facility] Blood Venipuncture / Unknown 06/01/2025 5:37 AM WATCH AND CLOCK REPAIRER 06/01/2025 5:47 AM WATCH AND CLOCK REPAIRER Yovani Espino MD CHEMISTRY ORDERABLES Elizabeth l Result Performing Organization Address City/[facility]/ZIP Co de Phone Number [facility] [address] [place] [address] * (ABNORMAL) CMP (Comprehensive Metabolic Panel) (06/01/2025 5:37 AM WATCH AND CLOCK REPAIRER) SODIUM 143 136 - 145 mmol/L 06/01/2025 6:08 AM [facility] POTASSIUM 3.4(L) 3.5 - 5.1 mmol/L 06/01/2025 6:08 AM WATCH AND CLOCK REPAIRER [facility] CHLORIDE 111(H) 98 - 107 mmol/L 06/01/2025 6:08 AM [facility] CO2, VENOUS 19(L) 22 - 30 mmol/L 06/01/2025 6:08 AM [facility] ANION GAP 16.4 <18.0 mmol/L 06/01/2025 6:08 AM WATCH AND CLOCK REPAIRER [facility] GLUCOSE 103(H) 70 - 99 mg/dL 06/01/2025 6:08 AM [facility] BUN 7 5 - 18 mg/dL 06/01/2025 6:08 AM [facility] CREATININE, BLOOD 0.81 0.60 - 1.00 mg/dL 06/01/2025 6:08 AM [facility] BUN/CREATININE RATIO 9(L) 12 - 20 ratio 06/01/2025 6:08 AM [facility] TOTAL PROTEIN 6.6 6.0 - 8.0 g/dL 06/01/2025 6:08 AM [facility] ALBUMIN 4.3 3.5 - 5.0 g/dL 06/01/2025 6:08 AM [facility] A/G RATIO 1.9 1.0 - 2.2 06/01/2025 6:08 AM [facility] CALCIUM 9.3 8.7 - 10.5 mg/dL 06/01/2025 6:08 AM [facility] T BILI 1.0 0.2 - 1.2 mg/dL 06/01/2025 6:08 AM [facility] SGOT (AST) 19 <43 U/L 06/01/2025 6:08 AM [facility] SGPT (ALT) 21 <56 U/L 06/01/2025 6:08 AM [facility] ALKALINE PHOSPHATASE 58 40 - 150 U/L 06/01/2025 6:08 AM [facility] GFR, ESTIMATED >60 >=60 06/01/2025 6:08 AM [facility] Comment: Creatinine Clearance is the preferred criteria for selecting drug dose adjustments in renally impaired patients. The GFR is provided as additional pertinent clinical information. GFR is reported in mL/min/1.73 sq m. Calculation based on the 2020 Chronic Kidney Disease Epidemiology Collaboration (CKD-EPI) equation refit without adjustment for race. GFR, EST. >60 >=60 025 6:08 AM [facility] Comment: Creatinine Clearance is the preferred criteria for selecting drug dose adjustments in renally impaired patients. The GFR is provided as additional pertinent clinical information. GFR is reported in mL/min/1.73 sq m. Calculation based on the 2009 Chronic Kidney Disease Epidemiology Collaboration (CKD-EPI). GFR, EST. NONAFRICAN >60 >=60 06/01/2025 6:08 AM WATCH AND CLOCK REPAIRER [facility] Comment: Creatinine Clearance is the preferred criteria for selecting drug dose adjustments in renally impaired patients. The GFR is provided as additional pertinent clinical information. GFR is reported in mL/min/1.73 sq m. Calculation based on the 2009 Chronic Kidney Disease Epidemiology Collaboration (CKD-EPI). Blood Venipuncture / Unknown 06/01/2025 5:37 AM WATCH AND CLOCK REPAIRER 06/01/2025 5:47 AM WATCH AND CLOCK REPAIRER us Yovani Espino MD CHEMISTRY ORDERABLES Elizabeth l Result [facility] [address] [place] [address] * XR LUMBAR SPINE 2 OR 3 VIEWS (03/08/2025 11:44 AM CDT) Anatomical Region Laterality Modality Spine, L-spine N/A Digital Radiogra phy 03/08/2025 11:4 4 AM CDT Impressions 03/08/2025 4:56 PM CDT IMPRESSION: No acute abnormality. L4-5 and L5-S1 spondylosis. Narrative 03/08/2025 4:56 PM CDT XR LUMBAR SPINE 2 OR 3 VIEWS : 03/08/2025 11:44 AM DICTATING PHYSICIAN: CHANG LI [facility]. HISTORY: Spine pain. ADDITIONAL TECHNOLOGIST HISTORY: c/o pain in lower back along right buttock traveling down leg COMPARISON: None. FINDINGS: Curvature: Normal. Alignment: Normal. Mineralization: Normal. Postoperative changes: None. Vertebral body heights: Normal. Intervertebral disk heights: Mild L4-5 and moderate L5-S1 disc degeneration. Other findings: None. Procedure Note Chang Li MD - 03/08/2025 XR LUMBAR SPINE 2 OR 3 VIEWS : 03/08/2025 11:44 AM DICTATING PHYSICIAN: CHANG LI [facility]. HISTORY: Spine pain. ADDITIONAL TECHNOLOGIST HISTORY: c/o pain in lower back along rightbuttock traveling down leg COMPARISON: None. FINDINGS: Curvature: Normal. Alignment: Normal. Mineralization: Normal. Postoperative changes: None. Vertebral body heights: Normal. Intervertebral disk heights: Mild L4-5 and moderate L5-S1 discdegeneration. Other findings: None. IMPRESSION: No acute abnormality. L4-5 and L5-S1 spondylosis. us Pilar Lopez VP OF GLOBAL MARKETING, DRILL PRESSER IMG DIAGNOSTIC ORDERA BLES Final Result * GROUP A STREP BY PCR (03/08/2025 10:13 AM CDT) GROUP A STREP BY PCR NOT DETECTED NOT DETECTED 03/08/2025 11:14 AM CDT [facility] Swab STRUCTURE OF ANTERIOR REGION OF NECK / Unknown Non-Phlebotomy Collection / Unknown 03/08/2025 10:13 AM CDT 03/08/2025 10:40 AM CDT Vicky Buckner MD MICROBIOLOGY - GENERAL O RDERABLES Final Result [facility] [address] [place] [address] * RSV,SARS-COV-2,INFLUENZA A&B BY PCR (03/08/2025 10:13 AM CDT) FLU A Negative Negative, Error 03/08/2025 11:26 AM CDT [facility] FLU B Negative Negative 03/08/2025 11:26 AM CDT [facility] RESP SYNC VIRUS Negative Negative 11:26 AM CDT [facility] SARSCOV2 NOT DETECTED (Reference Range for this test is Not Detected) 03/08/2025 11:26 AM CDT [facility] Comment:This test was perfor med by a [employer] Loader PCR Method. Nasal NASOPHARYNGEAL SWAB / Unknown Non-Phlebotomy Collection / Unknown 03/08/2025 10:13 AM CDT 03/08/2025 10:40 AM CDT Vicky Buckner MD MICROBIOLOGY - GENERAL O RDERABLES Final Result [facility] [address] [place] [address] from Last 3 Months Insurance MEDICAID [place] MEDICARE Care Teams Roll Threader Operator Relationship Specialty Start Date End Date Provider, None DC PCP - General 02/18/25 Irina Zelaya APRN, DRILL PRESSER [address] [address] Nurse Practitioner Advanced Practice Nurse 10/08/24
--- OUTSIDE RECORDS SUMMARY | 2025-06-03 16:02 | XMS_ITS | Encounter Summary ---
Author Organization [facility] Address [address] [place] [address] Phone Care Team Providers Care Spot Billing Clerk Name Role Phone Irina Zelaya APRN, MOLECULAR BIOLOGY SCIENTIST Unavailable Provider, None Primary Care Provider Unavailabl e Encounter Details Date Type Department Care Team (Late st Contact Info) Description 06/01/2025 Results Follow-Up [facility] [address] [place] [address] Tyrell Logan, PAC [address] [place] [address] XR CHEST SINGLE VIEW PORTABLE Social History Tobacco Use Types Packs/Day Years Used Date Smoking Tobacco: Former Cigarettes 0 Q uit: 05/04/2024 Smokeless Tobacco: Never Comments:Patient reported qu itting in May of 2024. Prior to that [...] on file Sexual Orientation Not on file documented as of this encounter Functional Status * Question Answer Date of Assessment Author Best Eye Response 4-->(E4) spontaneous 06/01/2025 5:23 AM Sergio Galvan RN Best Verbal Response 5-->(V5) oriented 06/01/2025 5:23 AM Sergio Galvan RN Best Motor Response 6-->(M6) obeys commands 06/01/2025 5:23 AM Sergio Galvan RN [place] Coma Scale Score 15 06/01/2025 5:23 AM Sergio Galvan RN * Question Answer Date of Assessment Author Pain Description constant;sharp;dull 06/01/2025 6:33 A M Sergio Galvan RN * Question Answer Date of Assessment Author SpO2 99 06/01/2025 7:00 AM Cristian Cardenas RN * Question Answer Date of Assessment Author Resp 16 06/01/2025 6:36 AM Matilde Barba RT * Safety Factors Answer Date of Assessment Author bed in low position;call lig ht in reach 06/01/2025 5:23 AM Davida Thapa RN * Question Answer Date of Assessment Author (0-10) Chest Pain Severity Rating 0 06/01/2025 5:25 AM Sergio Galvan RN * Question Answer Date of Assessment Author BP 128/78 06/01/2025 7:00 AM Cristian Cardenas RN Temp 98.9 06/01/2025 5:18 AM Davida Edmond RN Pulse 99 06/01/2025 7:00 AM Cristian Cardenas RN * Question Answer Date of Assessment Author O2 Device None (Room air) 06/01/2025 6:36 AM Matilde Ba RT documented as of this encounter Mental Status * Question Answer Entry Date Author Best Eye Response 4-->(E4) spontaneous 5:23 AM Sergio Galvan RN Best Verbal Response 5-->(V5) oriented 5:23 AM Sergio Galvan RN Best Motor Response 6-->(M6) obeys commands 05/05 5:23 AM Sergio Galvan RN [place] Coma Scale Score 15 06/01/2025 5:23 AM Sergio Galvan RN * Question Answer Entry Date Author Pain Description constant;sharp;dull 06/01/2025 6:33 A M MEDICAL ANTHROPOLOGIST Sergio West RN * Question Answer Entry Date Author SpO2 99 06/01/2025 7:00 AM MEDICAL ANTHROPOLOGIST Cristian Brambila RN * Safety Factors Answer Entry Date Author bed in low position;call lig ht in reach 06/01/2025 5:23 AM MEDICAL ANTHROPOLOGIST Davida Gilbert RN * Question Answer Entry Date Author (0-10) Chest Pain Severity Rating 0 06/01/2025 5:25 AM Sergio Galvan, RENETTA * Question Answer Entry Date Author BP 128/78 06/01/2025 7:00 AM MEDICAL ANTHROPOLOGIST Cristian Brambila RN Temp 98.9 06/01/2025 5:18 AM MEDICAL ANTHROPOLOGIST Davida Herrera RN Pulse 99 06/01/2025 7:00 AM MEDICAL ANTHROPOLOGIST Cristian Brambila RN * Question Answer Entry Date Author O2 Device None (Room air) 06/01/2025 6:36 AM MEDICAL ANTHROPOLOGIST Matilde Grossman RT documented in this encounter Plan of Treatment Upcoming Encounters Date Type Department Care Team (Late st Contact Info) Description 08/05/2025 3:30 PM MEDICAL ANTHROPOLOGIST Office Visit [facility] - Pulmonology & Sleep Medicine [facility] [address] [place] [address] Irina Zelaya APRN, MOLECULAR BIOLOGY SCIENTIST [address] [id number] documented as of this encounter Visit Diagnoses Not on filedocumented in this encounter Additional Health Concerns Assessment Noted Time PHQ-9 Depression Total Score: 0 03/30/20 19 3:25 PM CDT documented as of this encounter Care Teams Spot Billing Clerk Relationship Specialty Start Date End Date Provider, None [place] PCP - General 02/18/25 Irina Zelaya APRN, IZABELLA [address] [address] Nurse Practitioner Advanced Practice Nurse 10/08/24 documented as of this encounter
--- OUTSIDE RECORDS SUMMARY | 2025-06-03 16:02 | XMS_ITS | Data Portability ---
Author Organization MELISSA KELLEEmily Islas Address [address] [place] [address] Care Team Providers Care Information Systems Project Manager Name Role Phone CARISSA EPPS Primary Care Provider [phone] THANIA HULL Tractor Trailer Mechanic LORENA [address] Primary Care Provider Assessment Encounter Date Assessment Date Assessment LastModified by Organization Details LastModified Time 04/16/2024 04/16/2024 Teri Vaca is a 39 y/o F presenting to the clinic to establish care. [email or web address] Not available 04/16/2024 12:02:29 Plan of Treatment Reminders Order Date Submit Date Provider Last Modified By Organization Details Last Modified Time Details Appointments None recorded. Lab TSH, ultra-sen sitive, serum 2023 ANNE [facility], [address], [place], [address], 08:29:25 CMP, serum or plasma 2023 ANNE [facility], [address], [place], [address], 4 08:29:24 lipid panel, serum 2023 ANNE [facility], [address], [place], [address], 4 08:29:23 HbA1c (hemoglob in A1c), blood 2023 024 ANNE [facility], [address], [place], [address], 4 08:29:27 Referral occupatio nal therapist referral 2023 024 [email or web address] [facility], [address] [place] [address], [address], , [address], 5 16:23:02 counselin g referral 2023 024 tabby Zhao (), [address] , [place], [address], 5 17:35:04 gynecolog ist referral 2019 020 [email or web address] Thania Hull MD, [address] , [facility] [address], [place], [address], 0 09:20:14 Procedures None recorded. Surgeries None recorded. Imaging US, thyroid 2023 024 [email or web address] [facility] ([facility]) Scheduling, [address] [place], [address], 5 11:23:39 PFT, complete - with spirometr y 2023 024 [email or web address] [facility] ([facility]) Scheduling, [address] [place], [address], 5 11:23:39 Medication Orders gabapenti n 300 mg capsule 2023 024 [email or web address] [facility]acy #[id number], [address] [place], [address], 4 11:41:45 Dulera 100 mcg-5 mcg/actua tion HFA aerosol inhaler 2023 024 [id number] [address] [place], [address], 4 11:41:14 Tubersol 5 tub. unit/0.1 mL intraderm al injection solution 2020 021 [email or web address] Not available 4 10:44:32 meloxicam 15 mg tablet 2019 020 [email or web address] [facility]Ph[facility] #[id number], [address] [place], [address], 4 10:43:50 bupropion HCl XL 300 mg 24 hr tablet, extended release 2019 020 [email or web address] [facility] #[id number], [address] [place], [address], 0 10:02:46 escitalop sam 20 mg tablet 2019 020 [email or web address] [facility]Ph[facility]acy #[id number], [address] [place], [address], 4 10:41:52 Patient TargetsNo targets recorded. Patient Instructions Encounter Date Encounter Id Patient Instructions Last Modified By Organization Details Last Modified Time 05/06/2020 [id number] endometriosis: care instructions [email or web address] Not available 05/06/2020 16:01:35 12/18/2020 [id number] learning about tuberculosis (TB) [email or web address] Not available 12/18/2020 14:08:22 04/16/2024 [id number] Attending Physician Attestation I personally saw and examined the patient with the resident. I have reviewed the documentation and agree with the history, physical findings, work-up, and medical decision making as recorded. 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 Referring Physician: Carrillo Abbas, Market Risk Analyst, Encounter Date: 04/16/2024 Counseling Referral for Mixe d anxiety and depressive disorder mild depression and anxiety. Patient also has outbursts of anger. Referring Physician: Lorena Lane Market Risk Analyst, Encounter Date: 04/16/2024 Results Created Date Observation Date Name Description Value Unit Range Abnormal Flag Note LastModifiedBy Organization Detail LastModifiedTime 04/16/2004/17/2024 LIPID PANEL cholesterol, total 161 mg/dL 100-19 9 Not Available [facility] ([facility]) [address] [place], [address], 04/17/2024 08:29:23 04/16/2004/17/2024 LIPID PANEL triglyceride s 79 mg/dL 0-149 Not Available [facility] ([facility]) [address] [place], [address], 04/17/2024 08:29:23 04/16/2004/17/2024 LIPID PANEL HDL cholesterol 44 mg/dL >39 Not Available [facility] ([facility]) [address] [place], [address], 04/17/2024 08:29:23 04/16/20 24 04/17/2024 LIPID PANEL VLDL cholesterol arelis 15 mg/dL 5-40 Not Available [facility] ([facility]) [address] [place], [address], 04/17/2024 08:29:23 04/16/2004/17/2024 LIPID PANEL LDL chol calc ([facility]) 102 mg/dL 0-99 above high normal Not Available [facility] ([facility]) [address] [place], [address], 04/17/2024 08:29:23 04/16/20 24 04/17/2024 COMP. METAB OLIC PANEL (14) glucose 84 mg/dL 70-99 Not Available [facility] ([facility]) [address] [facility] [place], [address], 04/17/2024 08:29:24 04/16/20 24 04/17/2024 COMP. METAB OLIC PANEL (14) BUN 11 mg/dL 6-20 Not Available [facility] ([facility]) [address] [facility] [place], [address], 04/17/2024 08:29:24 04/16/20 24 04/17/2024 COMP. METAB OLIC PANEL (14) creatinine 0.80 mg/dL 0.57-1 .00 Not Available [facility] ([facility]) [address] [facility] [place], [address], 04/17/2024 08:29:24 04/16/20 24 04/17/2024 COMP. METAB OLIC PANEL (14) eGFR 96 mL/mi n/1.7 3 >59 Not Available [facility] ([facility]) [address] [facility] [place], [address], 04/17/2024 08:29:24 04/16/20 24 04/17/2024 COMP. METAB OLIC PANEL (14) BUN/creatini ne ratio 14 9-23 Not Available [facility] ([facility]) [address] [facility] [place], [address], 04/17/2024 08:29:24 04/16/20 24 04/17/2024 COMP. METAB OLIC PANEL (14) sodium 141 mmol/ L 134-14 4 Not Available [facility] ([facility]) [address] [facility] [place], [address], 04/17/2024 08:29:24 04/16/20 24 04/17/2024 COMP. METAB OLIC PANEL (14) potassium 4.8 mmol/ L 3.5-5. 2 Not Available [facility] ([facility]) [address] [facility] [place], [address], 04/17/2024 08:29:24 04/16/20 24 04/17/2024 COMP. METAB OLIC PANEL (14) chloride 105 mmol/ L 96-106 Not Available [facility] ([facility]) [address] [facility], [place], [address], 04/17/2024 08:29:24 04/16/20 24 04/17/2024 COMP. METAB OLIC PANEL (14) carbon dioxide, total 20 mmol/ L 20-29 Not Available [facility] ([facility]) [address] [facility], [place], [address], 04/17/2024 08:29:24 04/16/2004/17/2024 COMP. METAB OLIC PANEL (14) calcium 9.5 mg/dL 8.7-10 .2 Not Available [facility] ([facility]) [address] [facility], [place], [address], 04/17/2024 08:29:24 04/16/20 24 04/17/2024 COMP. METAB OLIC PANEL (14) protein, total 6.6 g/dL 6.0-8. 5 Not Available [facility] ([facility]) [address] [facility], [place], [address], 04/17/2024 08:29:24 04/16/20 24 04/17/2024 COMP. METAB OLIC PANEL (14) albumin 4.3 g/dL 3.9-4. 9 Not Available [facility] ([facility]) [address] [facility], [place], [address], 04/17/2024 08:29:24 04/16/20 24 04/17/2024 COMP. METAB OLIC PANEL (14) globulin, total 2.3 g/dL 1.5-4. 5 Not Available [facility] ([facility]) [address] [facility], [place], [address], 04/17/2024 08:29:24 04/16/20 24 04/17/2024 COMP. METAB OLIC PANEL (14) bilirubin, total <0.2 mg/dL 0.0-1. 2 Not Available [facility] ([facility]) [address] [facility], [place], [address], 04/17/2024 08:29:24 04/16/20 24 04/17/2024 COMP. METAB OLIC PANEL (14) alkaline phosphatase 66 IU/L 44-121 Not Available [facility] ([facility]) [address] [facility], [place], [address], 04/17/2024 08:29:24 04/16/2004/17/2024 COMP. METAB OLIC PANEL (14) AST (SGOT) 23 IU/L 0-40 Not Available [facility] ([facility]) [address] [facility], [place], [address], 04/17/2024 08:29:24 04/16/2004/17/2024 COMP. METAB OLIC PANEL (14) ALT (SGPT) 30 IU/L 0-32 Not Available [facility] ([facility]) [address] [place], [address], 04/17/2024 08:29:24 04/16/20 24 04/17/2024 TSH RFX ON ABNOR MAL TO FREE T4 TSH 1.050 uIU/m L 0.450- 4.500 Not Available [facility] ([facility]) [address] [place], [address], 04/17/2024 08:29:25 04/16/2004/17/2024 HEMOG LOBIN A1C hemoglobin A1C 5.6 % 4.8-5. 6 Predi abete s: 5.7 - 6.4 Diabe ella: >6.4 Glyce david contr ol for adult s with diabe ella: <7.0 Not Available [facility] ([facility]) [address] [place], [address], 04/17/2024 08:29:27 07/02/20 24 07/02/2024 Influ alena virus A and B and SARS- CoV-2 (COVI D-19) and Respi rator y syncy tial virus RNA panel - Respi rator y syste m speci men by NATHAN with probe detec tion influenza virus A RNA [presence] in upper respiratory specimen by NATHAN with probe detection Negati ve text: negati ve, error FLU A Negat lupe Negat lupe, Error 07/02 1:30 PM TACK WELDER [facility] [employer] [facility] Not Available Not Available 09/03/2024 15:36:09 07/02/20 24 07/02/2024 Influ alena virus A and B and SARS- CoV-2 (COVI D-19) and Respi rator y syncy tial virus RNA panel - Respi rator y syste m speci men by NATHAN with probe detec tion influenza virus B RNA [presence] in upper respiratory specimen by NATHAN with probe detection Negati ve text: negati ve FLU B Negat lupe Negat lupe 07/02 1:30 PM TACK WELDER [facility] [employer] [facility] Not Available Not Available 09/03/2024 15:36:09 07/02/20 24 07/02/2024 Influ alena virus A and B and SARS- CoV-2 (COVI D-19) and Respi rator y syncy tial virus RNA panel - Respi rator y syste m speci men by NATHAN with probe detec tion respiratory syncytial virus RNA [presence] in respiratory system specimen by NATHAN with probe detection Negati ve text: negati ve RESP SYNC VIRUS Negat lupe Negat lupe 07/02 1:30 PM TACK WELDER [facility] [employer] [employer] [facility] Not Available Not Available 09/03/2024 15:36:09 07/02/20 24 07/02/2024 Influ alena virus A and B and SARS- CoV-2 (COVI D-19) and Respi rator y syncy tial virus RNA panel - Respi rator y syste m speci men by NATHAN with probe detec tion sars-cov-2 (covid-19) N gene [presence] in specimen by NATHAN with probe detection NOT DETECT ED text: (refer ence range for this test IS not detect ed) SARSC OV2 NOT DETEC KRISHNA (Refe rence Range for this test is Not Detec krishna) 07/02 1:30 PM [facility] WELDER [facility] Not Available Not Available 09/03/2024 15:36:09 07/02/20 24 07/02/2024 Influ alena virus A and B and SARS- CoV-2 (COVI D-19) and Respi rator y syncy tial virus RNA panel - Respi rator y syste m speci men by NATHAN with probe detec tion Unknown Analyte This test has not been FDA cleare d or approv ed; the test has been author ized by FDA under an Emerge ncy Use Author izatio n (EUA) for use by labora tormarysol certif ied under the CLIA that meet the requir ements to perfor m modera te, high or waived comple xity tests. Author ized Fact Sheets about this test for provid ers and patien ts are availa ble at: https: //www. fda.go v/medi arelis-de vices/ emerge ncy-si tuatio ns-med ical-d evices /emerg ency-u se-aut horiza tions This test has not been FDA clear ed or appro ruby; the test has been autho rized by FDA under an Emerg ency Use Autho rizat ion (EUA) for use by labor atori es certi fied under the CLIA that meet the requi remen ts to perfo rm moder ate, high or waive d compl exity tests . Autho rized Fact Sheet s about this test for provi ders and patie nts are avail able at: https ://ww w.fda .gov/ medic al-de vices /viktor gency -situ ation s-med ical- devic es/em ergen cy-us e-aut horiz ation s Not Available Not Available 09/03/2024 15:36:09 07/02/20 24 07/02/2024 Influ alena virus A and B and SARS- CoV-2 (COVI D-19) and Respi rator y syncy tial virus RNA panel - Respi rator y syste m speci men by NATHAN with probe detec tion interpretati on and review of laboratory results Normal Not Available Not Available 09/2024 15:36:09 07/02/20 24 07/02/2024 CBC W Auto Diffe renti al panel - Blood leukocytes [#/volume] in blood by automated count 13.76 text: 4.00 - 12.00 10(3)/ mcL high WBC 13.76 (H) 4.00 - 12.00 10(3) /mcL 07/02 12:35 PM [facility] Not Available Not Available 09/03/2024 15:36:09 07/02/20 24 07/02/2024 CBC W Auto Diffe renti al panel - Blood erythrocytes [#/volume] in blood by automated count 4.93 text: 3.80 - 5.30 10(6)/ mcL RBC 4.93 3.80 - 5.30 10(6) /mcL 07/02 12:35 PM [facility]EL[facility] Not Available Not Available 09/03/2024 15:36:09 07/02/20 24 07/02/2024 CBC W Auto Diffe renti al panel - Blood hemoglobin [mass/volume ] in blood 14.1 g/dL low: 12g/dL high: 15.8g/ dL HEMOG LOBIN (HGB) 14.1 12.0 - 15.8 g/dL 07/02 12:35 PM [facility]ELDER [facility] Not Available Not Available 09/03/2024 15:36:09 07/02/20 24 07/02/2024 CBC W Auto Diffe renti al panel - Blood hematocrit [volume fraction] of blood by automated count 42 % low: 36%hig h: 47% HEMAT OCRIT (HCT) 42.0 36.0 - 47.0 % 07/02 12:35 PM [facility]ELDER [facility] Not Available Not Available 09/03/2024 15:36:09 07/02/20 24 07/02/2024 CBC W Auto Diffe renti al panel - Blood MCV [entitic volume] by automated count 85.2 fL low: 82fLhi gh: 96fL MCV 85.2 82.0 - 96.0 fL 07/02 12:35 PM [facility] Not Available Not Available 09/03/2024 15:36:09 07/02/20 24 07/02/2024 CBC W Auto Diffe renti al panel - Blood MCH [entitic mass] by automated count 28.6 pg low: 26pghi gh: 34pg MCH 28.6 26.0 - 34.0 pg 07/02 12:35 PM [facility]EL[facility] Not Available Not Available 09/03/2024 15:36:09 07/02/20 24 07/02/2024 CBC W Auto Diffe renti al panel - Blood MCHC [mass/volume ] by automated count 33.6 g/dL low: 31g/dL high: 36g/dL MCHC 33.6 31.0 - 36.0 g/dL 07/02 12:35 PM [facility]EL[facility] Not Available Not Available 09/03/2024 15:36:09 07/02/20 24 07/02/2024 CBC W Auto Diffe renti al panel - Blood platelets [#/volume] in blood 339 text: 140 - 440 10(3)/ mcL PLATE LET COUNT 339 140 - 440 10(3) /mcL 07/02 12:35 PM [facility] [employer] Not Available Not Available 09/03/2024 15:36:09 07/02/20 24 07/02/2024 CBC W Auto Diffe renti al panel - Blood erythrocyte distribution width [ratio] by automated count 13.2 % low: 11.8%h igh: 15.5% RDW 13.2 11.8 - 15.5 % 07/02 12:35 PM [facility] Not Available Not Available 09/03/2024 15:36:09 07/02/20 24 07/02/2024 CBC W Auto Diffe renti al panel - Blood platelet mean volume [entitic volume] in blood by automated count 9.2 fL low: 9.7fLh igh: 12.4fL low MPV 9.2 (L) 9.7 - 12.4 fL 07/02 12:35 PM [facility]ELDER [facility] Not Available Not Available 09/03/2024 15:36:09 07/02/20 24 07/02/2024 CBC W Auto Diffe renti al panel - Blood neutrophils/ 100 leukocytes in blood by automated count 70.7 % low: 47%hig h: 73% NEUTR OPHIL S 70.7 47.0 - 73.0 % 07/02 12:35 PM [facility]ELDER [facility] Not Available Not Available 09/03/2024 15:36:09 07/02/20 24 07/02/2024 CBC W Auto Diffe renti al panel - Blood lymphocytes/ 100 leukocytes in blood by automated count 16 % low: 18%hig h: 42% low LYMPH OCYTE S 16.0 (L) 18.0 - 42.0 % 07/02 12:35 PM [facility]ELDER [facility] Not Available Not Available 09/03/2024 15:36:09 07/02/20 24 07/02/2024 CBC W Auto Diffe renti al panel - Blood monocytes/10 0 leukocytes in blood by automated count 8.6 % low: 4%high : 12% MONOC YTES 8.6 4.0 - 12.0 % 07/02 12:35 PM [facility] Not Available Not Available 09/03/2024 15:36:09 07/02/20 24 07/02/2024 CBC W Auto Diffe renti al panel - Blood eosinophils/ 100 leukocytes in blood by automated count 4.4 % low: 0%high : 5% EOSIN OPHIL S 4.4 0.0 - 5.0 % 07/02 12:35 PM [facility] Not Available Not Available 09/03/2024 15:36:09 07/02/20 24 07/02/2024 CBC W Auto Diffe renti al panel - Blood basophils/10 0 leukocytes in blood by automated count 0.3 % low: 0%high : 1% BASOP HILS 0.3 0.0 - 1.0 % 07/02 12:35 PM [facility] Not Available Not Available 09/03/2024 15:36:09 07/02/20 24 07/02/2024 CBC W Auto Diffe renti al panel - Blood neutrophils [#/volume] in blood by automated count 9.73 text: 1.60 - 7.70 10(3)/ mcL high ABSOL TUNTUTULIAK NEUTR OPHIL S 9.73 (H) 1.60 - 7.70 10(3) /mcL 07/02 12:35 PM [facility] Not Available Not Available 09/03/2024 15:36:09 07/02/20 24 07/02/2024 CBC W Auto Diffe renti al panel - Blood lymphocytes [#/volume] in blood by automated count 2.2 text: 1.30 - 3.20 10(3)/ mcL ABSOL TUNTUTULIAK LYMPH OCYTE S 2.20 1.30 - 3.20 10(3) /mcL 07/02 12:35 PM [facility]EL[facility] Not Available Not Available 09/03/2024 15:36:09 07/02/20 24 07/02/2024 CBC W Auto Diffe renti al panel - Blood monocytes [#/volume] in blood by automated count 1.19 text: 0.20 - 1.00 10(3)/ mcL high ABSOL TUNTUTULIAK MONOC YTES 1.19 (H) 0.20 - 1.00 10(3) /mcL 07/02 12:35 PM [facility] Not Available Not Available 09/03/2024 15:36:09 07/02/20 24 07/02/2024 CBC W Auto Diffe renti al panel - Blood eosinophils [#/volume] in blood by automated count 0.6 text: 0.00 - 0.40 10(3)/ mcL high ABSOL TUNTUTULIAK EOSIN OPHIL 0.60 (H) 0.00 - 0.40 10(3) /mcL 07/02 12:35 PM [facility] Not Available Not Available 09/03/2024 15:36:09 07/02/20 24 07/02/2024 CBC W Auto Diffe renti al panel - Blood basophils [#/volume] in blood by automated count 0.04 text: 0.00 - 0.10 10(3)/ mcL ABSOL TUNTUTULIAK BASOP HILS 0.04 0.00 - 0.10 10(3) /mcL 07/02 12:35 PM [facility] Not Available Not Available 09/03/2024 15:36:09 07/02/20 24 07/02/2024 CBC W Auto Diffe renti al panel - Blood nucleated erythrocytes /100 leukocytes [ratio] in blood 0 NRBC PER 100 WBC 0 07/02 12:35 PM [facility] Not Available Not Available 09/03/2024 15:36:09 07/02/20 24 07/02/2024 CBC W Auto Diffe renti al panel - Blood interpretati on and review of laboratory results Abnorm al Not Available Not Available 15:36:09 07/02/20 24 07/02/2024 Compr ehens lupe metab olic 1999 panel - Serum or Plasm a sodium [moles/volum e] in serum or plasma 141 mmol/ L low: 136mmo l/Lhig h: 145mmo l/L SODIU M 141 136 - 145 mmol/ L 07/02 12:52 PM [facility] Not Available Not Available 09/03/2024 15:36:09 07/02/20 24 07/02/2024 Compr ehens lupe metab olic 2000 panel - Serum or Plasm a potassium [moles/volum e] in serum or plasma 3.5 mmol/ L low: 3.5mmo l/Lhig h: 5.1mmo l/L POTAS SIUM 3.5 3.5 - 5.1 mmol/ L 07/02 12:52 PM [facility] Not Available Not Available 09/03/2024 15:36:09 07/02/20 24 07/02/2024 Compr ehens lupe metab olic 1999 panel - Serum or Plasm a chloride [moles/volum e] in serum or plasma 111 mmol/ L low: 98mmol /Lhigh : 107mmo l/L high CHLOR MICHELL 111 (H) 98 - 107 mmol/ L 07/02 12:52 PM [facility] Not Available Not Available 09/03/2024 15:36:09 07/02/20 24 07/02/2024 Compr ehens lupe metab olic 1999 panel - Serum or Plasm a carbon dioxide, total [moles/volum e] in serum or plasma 20 mmol/ L low: 22mmol /Lhigh : 30mmol /L low CO2, VENOU S 20 (L) 22 - 30 mmol/ L 07/02 12:52 PM TACK WELDER [facility] [employer] R LAB Not Available Not Available 09/03/2024 15:36:09 07/02/20 24 07/02/2024 Compr ehens lupe metab olic 2000 panel - Serum or Plasm a anion gap in serum or plasma 13.5 mmol/ L high: 18mmol /L ANION GAP 13.5 <18.0 mmol/ L 07/02 12:52 PM [facility] [employer] [facility] Not Available Not Available 09/03/2024 15:36:09 07/02/20 24 07/02/2024 Compr ehens lupe metab olic 1999 panel - Serum or Plasm a glucose [mass/volume ] in serum or plasma 82 mg/dL low: 70mg/d Lhigh: 99mg/d L GLUCO SE 82 70 - 99 mg/dL 07/02 12:52 PM [facility] Not Available Not Available 09/03/2024 15:36:09 07/02/20 24 07/02/2024 Compr ehens lupe metab olic 2000 panel - Serum or Plasm a urea nitrogen [mass/volume ] in serum or plasma 8 mg/dL low: 5mg/dL high: 18mg/d L BUN 8 5 - 18 mg/dL 07/02 12:52 PM [facility] Not Available Not Available 09/03/2024 15:36:09 07/02/20 24 07/02/2024 Compr Tailored Fitens lupe metab olic 2000 panel - Serum or Plasm a creatinine [mass/volume ] in serum or plasma 0.75 mg/dL low: 0.6mg/ dLhigh : 1mg/dL CREAT ININE , BLOOD 0.75 0.60 - 1.00 mg/dL 07/02 12:52 PM [facility] Not Available Not Available 09/03/2024 15:36:09 07/02/20 24 07/02/2024 Compr ehens lupe metab olic 2000 panel - Serum or Plasm a urea nitrogen/cre atinine [mass ratio] in serum or plasma 11 text: 12 - 20 ratio low BUN/C REATI NINE RATIO 11 (L) 12 - 20 ratio 07/02 12:52 PM [facility] Not Available Not Available 09/03/2024 15:36:09 07/02/20 24 07/02/2024 Compr Tailored Fitens lu[place] metab olic 2000 panel - Serum or Plasm a protein [mass/volume ] in serum or plasma 6.7 g/dL low: 6.3g/d Lhigh: 8.2g/d L TOTAL PROTE IN 6.7 6.3 - 8.2 g/dL 07/02 12:52 PM [facility]EL[facility] Not Available Not Available 09/03/2024 15:36:09 07/02/20 24 07/02/2024 Compr ehens lupe metab olic 2000 panel - Serum or Plasm a albumin [mass/volume ] in serum or plasma 4.2 g/dL low: 3.5g/d Lhigh: 5g/dL ALBUM IN 4.2 3.5 - 5.0 g/dL 07/02 12:52 PM [facility] [employer] [facility] Not Available Not Available 09/03/2024 15:36:09 07/02/20 24 07/02/2024 Compr ehens lupe Orad ol 1999 panel - Serum or Plasm a albumin/glob ulin [mass ratio] in serum or plasma 1.7 low: 1high: 2.2 A/G RATIO 1.7 1.0 - 2.2 07/02 12:52 PM [facility] EcomsualE R LAB Not Available Not Available 09/03/2024 15:36:09 07/02/20 24 07[facility]02[facility]24 [facility] panel - Serum or Plasm a calcium [mass/volume ] in serum or plasma 9 mg/dL low: 8.7mg/ dLhigh : 10.5mg /dL CALCI UM 9.0 8.7 - 10.5 mg/dL 07/02 12:52 PM [facility] Forensic LogicE R LAB Not Available Not Available 09/03/2024 15:36:09 07/02/20 24 07/02/2024 [facility] 1999 panel - Serum or Plasm a bilirubin.to heather [mass/volume ] in serum or plasma 0.6 mg/dL low: 0.2mg/ dLhigh : 1.2mg/ dL T BILI 0.6 0.2 - 1.2 mg/dL 07/02 12:52 PM [facility] [facility] Forensic LogicE R LAB Not Available Not Available 09/03/2024 15:36:09 07/02/20 24 07/02/2024 [facility] [employer] lupe Orad olic 1999 panel - Serum or Plasm a aspartate aminotransfe rase [enzymatic activity/vol ume] in serum or plasma 17 U/L low: 5U/Lhi gh: 34U/L SGOT (AST) 17 5 - 34 U/L 07/02 12:52 PM TACK WELDER [facility] EcomsualE R LAB Not Available Not Available 09/03/2024 15:36:09 07/02/20 24 07/02/2024 [facility] [employer] lu[place] Orad olic 2000 panel - Serum or Plasm a alanine aminotransfe rase [enzymatic activity/vol ume] in serum or plasma 22 U/L low: 0U/Lhi gh: 55U/L SGPT (ALT) 22 0 - 55 U/L 07/02 12:52 PM TACK [facility]EL[facility] [employer] StudioT H CENTE R LAB Not Available Not Available 09/03/2024 15:36:09 07/02/20 24 07/02/2024 [employer] lupe metab olic 2000 panel - Serum or Plasm a alkaline phosphatase [enzymatic activity/vol ume] in serum or plasma 61 U/L low: 40U/Lh igh: 150U/L ALKAL INE PHOSP HATAS E 61 40 - 150 U/L 07/02 12:52 PM [facility] [employer] [facility] H CENTE R LAB Not Available Not Available 09/03/2024 15:36:09 07/02/20 24 07/02/2024 Compr [employer] [place] Orad olic 2000 panel - Serum or Plasm a glomerular filtration rate/1.73 sq M.predicted among non-blacks [volume rate/area] in serum, plasma or blood by creatinine-b ased formula (MDRD) low: 60 GFR, ESTIM ATED >60 >=60 07/02 12:52 PM [facility]ACK [facility]EL[facility] [employer] [facility] H CENTE R LAB Not Available Not Available 09/03/2024 15:36:09 07/02/20 24 07/02/2024 Compr [employer] [place] Orad olic 2000 panel - Serum or Plasm a glomerular filtration rate/1.73 sq M.predicted among blacks [volume rate/area] in serum, plasma or blood by creatinine-b ased formula (MDRD) low: 60 GFR, EST. AFRIC AN >60 >=60 07/02 12:52 PM TACK WELDER [facility] [employer] [facility] CENTE R LAB Not Available Not Available 09/03/2024 15:36:09 07/02/20 24 07/02/2024 Compr ehens [place] metab olic 2000 panel - Serum or Plasm a glomerular filtration rate/1.73 sq M.predicted among non-blacks [volume rate/area] in serum, plasma or blood by creatinine-b ased formula (MDRD) low: 60 GFR, EST. NONAF RICAN >60 >=60 07/02 12:52 PM TACK WELDER [facility] [employer] CENTE R LAB Not Available Not Available 09/03/2024 15:36:09 07/02/20 24 07/02/2024 Compr ehens [place] metab olic 2000 panel - Serum or Plasm a interpretati on and review of laboratory results Abnorm al Not Available Not Available 15:36:09 08/23/19 25 08/23/2024 Influ alena virus A and B and SARS- CoV-2 (COVI D-19) and Respi rator y syncy tial virus RNA panel - Respi rator y syste m speci men by NATHAN with probe detec tion influenza virus A RNA [presence] in upper respiratory specimen by NATHAN with probe detection Negati ve text: negati ve, error FLU A Negat lupe Negat lupe, Error 08/23 9:59 AM TACK WELDER [facility] Fore[facility] Logic[employer] R LAB Not Available Not Available 09/03/2024 15:36:11 08/23/19 25 08/23/2024 Influ alena virus A and B and SARS- CoV-2 (COVI D-19) and Respi rator y syncy tial virus RNA panel - Respi rator y syste m speci men by NATHAN with probe detec tion influenza virus B RNA [presence] in upper respiratory specimen by NATHAN with probe detection Negati ve text: negati ve FLU B Negat lupe Negat lupe 08/23 9:59 AM TACK WELDER [facility] [employer] LAB Not Available Not Available 09/03/2024 15:36:11 08/23/19 25 08/23/2024 Influ alena virus A and B and SARS- CoV-2 (COVI D-19) and Respi rator y syncy tial virus RNA panel - Respi rator y syste m speci men by NATHAN with probe detec tion respiratory syncytial virus RNA [presence] in respiratory system specimen by NATHAN with probe detection Negati ve text: negati ve RESP SYNC VIRUS Negat lupe Negat lupe 08/23 9:59 AM TACK WELDER [facility] CENTE R LAB Not Available Not Available 09/03/2024 15:36:11 08/23/19 25 08/23/2024 Influ alena virus A and B and SARS- CoV-2 (COVI D-19) and Respi rator y syncy tial virus RNA panel - Respi rator y syste m speci men by NATHAN with probe detec tion sars-cov-2 (covid-19) N gene [presence] in specimen by NATHAN with probe detection NOT DETECT ED text: (refer ence range for this test IS not detect ed) SARSC OV2 NOT DETEC KRISHNA (Refe rence Range for this test is Not Detec krishna) 08/23 9:59 AM [facility] Not Available Not Available 09/03/2024 15:36:11 08/23/19 25 08/23/2024 Influ alena virus A and B and SARS- CoV-2 (COVI D-19) and Respi rator y syncy tial virus RNA panel - Respi rator y syste m speci men by NATHAN with probe detec tion interpretati on and review of laboratory results Normal Not Available Not Available 09/2024 15:36:11 Result Notes None recorded. Problems Name Problem SNOMED Code Status Onset Date Resolution Date Notes Provider Name and Address Organization Details Recorded Time Seizure disorder 000094531 Active Afshan Louis MA null, [facility] 6 09:42:39 Tobacco user 752702724 Active Afshan Louis MA null, [facility] 6 09:42:39 Chronic obstructive pulmonary disease 86914503 Active Afshan Louis MA null, [facility] 09:42:39 Eruption 876257260 Active Nerissa Pa RN null, [facility] 17:16:57 Problem Notes None recorded. Procedures Surgical History Date Name Laterality Status Provider Name and Address Organization Details Recorded Time 07/04/19 17 Other completed Antonia De Guzman MA [facility] 06/09/2020 10:08:13 07/04/19 14 Other completed MARTA Monroe [facility] 11/27/2015 09:11:14 07/04/19 12 Cholecystectomy completed Afshan Louis MA [facility] 11/27/2015 09:11:14 Imaging Results None recorded. Procedure Notes None recorded. Medical Equipment None Reported. Allergies Allergen ID Allergen Name Allergen Category Reaction Reaction Severity Criticality Documentation Date Start Date Code Code System Note Provider Name and Address Organization Details Recorded Time 201591 Depakote medicatio n hives Not available Not available 04/16/2024 42290 9 RxNorm EDMAR Gilman null, [place] - [facility] 4 10:39:19 70572 phenobarb ital medicatio n Not available Not available Not available 11/27/2015 8134 RxNorm Throa t swell ing/c onvul nathanael Cavanaugh MARTA Louis null, [place] - [facility] 6 09:11:14 16385 Substance with sulfonami de structure and antibacte rial mechanism of action (substanc e) medicatio n Not available Not available Not available 11/27/2015 98494 8003 SNOMED throa t swell ing Afshan MARTA Louis, [facility] 6 09:11:14 Medications Name Sig Start Date Stop Date Status Note LastModified by Organization Details LastModified Time symbicort 160-4.5 mcg/act aero 10/04 completed Not Available Not Available Not Available neomycin/ polymyxin /hc 1 % soln active Not Available Not Available Not Available ondansetr on hcl 4 mg tabs 10/22 completed Not Available Not Available Not Available prednison e 10 mg tabs active Not Available Not Available Not Available levofloxa shereen 500 mg tabs active Not Available Not Available Not Available methylpre dnisolone dose pack 4 mg tbpk active Not Available Not Available No t Available baclofen 10 mg tabs active Not Available Not Available Not Available clindamyc in hcl 300 mg caps active Not Available Not Available Not Available sertralin e hcl 100 mg tabs active Not Available Not Available Not Available oxycodone /acetamin ophen 10-325 mg tabs active Not Available Not Available Not Available triamcino lone acetonide 0.1 % crea 10/22 completed Not Available Not Available Not Available omeprazol e 20 mg cpdr active Not Available Not Available Not Available venlafaxi ne hcl 37.5 mg tabs active Not Available Not Available Not Available nitrofura ntoin monohydra te 100 mg caps active Not Available Not Available Not Available citalopra m hydrobrom michell 40 mg tabs 10/22 completed Not Available Not Available Not Available amoxicill in 875 mg tabs active Not Available Not Available Not Available ibuprofen 800 mg tabs active Not Available Not Available Not Available cephalexi n 500 mg caps active Not Available Not Available Not Available prednison e 20 mg tabs active Not Available Not Available Not Available hydrocodo ne/acetam inophen 10-325 mg tabs 10/22 completed Not Available Not Available Not Available alprazola m 1 mg tabs active Not Available Not Available Not Available sertralin e hcl 50 mg tabs active Not Available Not Available Not Available azithromy shereen 250 mg tabs active Not Available Not Available Not Available hydrocodo ne/acetam inophen 5-325 mgtabs 10/22 completed Not Available Not Available Not Available tramadol hcl 50 mg tabs active Not Available Not Available Not Available venlafaxi ne hcl 75 mg tabs active Not Available Not Available Not Available nystatin 903415 unit/ml susp active Not Available Not Available Not Available proair hfa 108 (90 base) mcg/act aers 10/22 completed Not Available Not Available Not Available amoxicill in 500 mg capsule Take 1 capsule every 8 hours by oral route. 05/06 completed Not Available Not Available Not Available bupropion HCl SR 150 mg tablet,12 hr sustained -release Take 1 tablet(s ) every day by oral route. 02/01 completed Not Available Not Available Not Available potassium chloride ER 10 mEq capsule,e xtended release TAKE 1 CAPSULE BY MOUTH 2 TIMES DAILY FOR 30 DAYS. 04/16 completed Not Available Not Available Not Available prednison e 10 mg tablet TAKE 6 TABS IN THE AM WITH FOOD FOR 2 DAYS, THEN 5,5,4,4, 3,3,2,2, 1, AND 1 05/18 completed Not Available Not Available Not Available doxycycli ne hyclate 100 mg capsule TAKE 1 CAPSULE BY MOUTH TWICE A DAY FOR 7 DAYS 04/16 completed Not Available Not Available Not Available ipratropi um 0.5 mg-albute rol 3 mg (2.5 mg base)/3 mL nebulizat ion soln 3 ML INHALED FOUR TIMES DAILY NEEDED FOR SHORTNES S OF BREATH OR WHEEZING active Not Available Not Available No t Available clindamyc in HCl 300 mg capsule TAKE 1 CAPSULE BY MOUTH EVERY 8 HOURS FOR 10 DAYS. 04/16 completed Not Available Not Available Not Available albuterol sulfate 2.5 mg/3 mL (0.083 %) solution for nebulizat ion 2.5 MG (3 ML) INHALED EVERY 6 HOURS NEEDED FOR SHORTNES S OF BREATH OR WHEEZING active Not Available Not Available No t Available etodolac 300 mg capsule 1 twice daily with food as needed for knee pain 11/05 completed Not Available Not Available Not Available citalopra m 40 mg tablet TAKE 1 TABLET BY MOUTH EVERY DAY 10/22 completed Not Available Not Available Not Available trazodone 50 mg tablet 10/22 completed Not Available Not Available Not Available cetirizin e 10 mg tablet TAKE 1 TABLET BY MOUTH EVERY DAY 04/16 completed pt is out of this and is still interest ed in taking ( 4) Not Available Not Available Not Available azithromy shereen 250 mg tablet TAKE 2 TABLETS BY MOUTH TODAY, THEN TAKE 1 TABLET DAILY FOR 4 DAYS DIRECTED active Not Available Not Available No t Available ibuprofen 800 mg tablet TAKE 1 TABLET BY MOUTH THREE TIMES A DAY NEEDED 04/16 completed Not Available Not Available Not Available fluconazo le 150 mg tablet Take 1 tablet every week by oral route. 03/25 completed Not Available Not Available Not Available clarithro mycin 500 mg tablet 10/22 completed Not Available Not Available Not Available hydrocodo ne 5 mg-acetam inophen 325 mg tablet TAKE 1 TABLET BY MOUTH EVERY 6 HOURS NEEDED FOR MODERATE OR MORE SEVERE PAIN 04/16 completed Not Available Not Available Not Available fluconazo le 200 mg tablet Take 1 tablet every week by oral route. 01/27 completed Not Available Not Available Not Available meloxicam 15 mg tablet TAKE 1 TABLET BY MOUTH EVERY DAY 04/16 completed Not Available Not Available Not Available prednison e 20 mg tablet TAKE 2 TABLETS BY MOUTH EVERY DAY FOR 5 DAYS 04/16 completed Not Available Not Available Not Available Tubersol 5 tub. unit/0.1 mL intraderm al injection solution Inject 0.1 mL by intrader mal route. 04/16 completed Not Available Not Available Not Available clonazepa m 0.5 mg tablet Take 1 tablet 3 times a day by oral route. 01/27 completed Not Available Not Available Not Available penicilli n V potassium 500 mg tablet 10/22 completed Not Available Not Available Not Available acetamino phen 300 mg-codein e 30 mg tablet Take 1 tablet every 6 hours by oral route as needed. 06/09 completed Not Available Not Available Not Available doxycycli ne monohydra te 100 mg tablet 10/22 completed Not Available Not Available Not Available tramadol 50 mg tablet Take 1 tablet every 6 hours by oral route as needed. 01/27 completed Not Available Not Available Not Available triamcino lone acetonide 0.1 % topical cream APPLY A THIN LAYER TO THE AFFECTED AREA(S) BY TOPICAL ROUTE 2 TIMES PER DAY 10/22 completed Not Available Not Available Not Available amoxicill in 875 mg tablet TAKE 1 TABLET BY MOUTH EVERY 12 HOURS 04/16 completed Not Available Not Available Not Available citalopra m 20 mg tablet Take 1 tablet every day by oral route. 2015 active Not Available Not Available Not Avai lable baclofen 10 mg tablet 10/22 completed Not Available Not Available Not Available dexametha sone 2 mg tablet 10/22 completed Not Available Not Available Not Available nystatin 100,000 unit/gram topical cream APPLY TO THE AFFECTED AREA(S) BY TOPICAL ROUTE 2 TIMES PER DAY 01/27 completed Not Available Not Available Not Available prednison e 50 mg tablet TAKE 1 TABLET BY MOUTH DAILY FOR 5 DAYS. INDICATI ONS: ASTHMA active Not Available Not Available No t Available indometha shereen 50 mg capsule Take 1 capsule 3 times a day by oral route with meals. 2019 active Not Available Not Available Not Avai lable gabapenti n 300 mg capsule Take 1 capsule 3 times a day by oral route as needed for 30 days. 2023 active Not Available Not Available Not Avai lable monteluka st 10 mg tablet TAKE 1 TABLET BY MOUTH EVERY DAY active Not Available Not Available No t Available hydroxyzi ne HCl 25 mg tablet active Not Available Not Available No t Available hydrochlo rothiazid e 25 mg tablet TAKE 1 TABLET BY MOUTH EVERY DAY 04/16 completed pt is not taking this ( 4) Not Available Not Available Not Available triamtere ne 75 mg-hydroc hlorothia zide 50 mg tablet TAKE 1 TABLET BY MOUTH EVERY DAY NEEDED active Not Available Not Available No t Available lorazepam 1 mg tablet 10/22 completed Not Available Not Available Not Available ibuprofen 600 mg tablet 12/29 completed Not Available Not Available Not Available methylpre dnisolone 4 mg tablets in a dose pack TAKE 6 TABLETS ON DAY 1 DIRECTED ON PACKAGE AND DECREASE BY 1 TAB EACH DAY FOR A TOTAL OF 6 DAYS 04/16 completed Not Available Not Available Not Available albuterol sulfate HFA 90 mcg/actua tion aerosol inhaler TAKE 2 PUFFS BY INHALATI ON EVERY 4 HOURS NEEDED FOR COUGH. INDICATI ONS: ASTHMA active Not Available Not Available No t Available Vitamin D2 1,250 mcg (50,000 unit) capsule Take 1 capsule every week by oral route. 01/27 completed Not Available Not Available Not Available ondansetr on 4 mg disintegr ating tablet 10/22 completed Not Available Not Available Not Available fluticaso ne propionat e 50 mcg/actua tion nasal spray,paul pension 1 SPRAY INTRANAS ALLY TWICE A DAY ADMINIST ER INTO EACH NOSTRIL 04/16 completed pt states she doesn't take this ( 4) Not Available Not Available Not Available sertralin e 50 mg tablet 10/22 completed Not Available Not Available Not Available naproxen 500 mg tablet 10/22 completed Not Available Not Available Not Available amoxicill in 875 mg-potass ium clavulana te 125 mg tablet TAKE 1 TABLET BY MOUTH 2 TIMES DAILY FOR 7 DAYS. INDICATI ONS: COMMUNIT Y ACQUIRED PNEUMONI A active Not Available Not Available No t Available hydroxyzi ne pamoate 25 mg capsule Take 1 capsule 3 times a day by oral route. 11/05 completed Not Available Not Available Not Available escitalop sam 10 mg tablet Take 1 tablet every day by oral route. 03/25 completed Not Available Not Available Not Available escitalop sam 20 mg tablet TAKE 1 TABLET BY MOUTH TWICE A DAY 04/16 completed Not Available Not Available Not Available bupropion HCl XL 300 mg 24 hr tablet, extended release Take 1 tablet every day by oral route. 06/09 completed Not Available Not Available Not Available nitrofura ntoin monohydra te/macroc rystals 100 mg capsule Take 1 capsule every 12 hours by oral route. 01/27 completed Not Available Not Available Not Available quetiapin e 50 mg tablet 10/22 completed Not Available Not Available Not Available Symbicort 160 mcg-4.5 mcg/actua tion HFA aerosol inhaler INHALE 2 PUFFS BY MOUTH IN THE MORNING AND 2 PUFFS IN THE EVENING 04/16 completed Not Available Not Available Not Available Symbicort 80 mcg-4.5 mcg/actua tion HFA aerosol inhaler 04/16 completed Not Available Not Available Not Available Dulera 100 mcg-5 mcg/actua tion HFA aerosol inhaler INHALE 2 PUFFS TWICE A DAY active Not Available Not Available No t Available Breo Ellipta 100 mcg-25 mcg/dose powder for inhalatio n Inhale 1 puff every day by inhalati on route. 10/22 completed Not Available Not Available Not Available Vitals Date Recorded Body height Body mass index (BMI) Body weight Oxygen saturation Heart rate Systolic And Diastolic Provider Name and Address Organization Details Last Updated DateTime 1 172.72 cm 30.7 kg/m2 23815.6 6 g 97 % 83 /min 120/70 mm[Hg] Castro Jackson [place] [facility] 1 11:52:52 Date Recorded Body height Body mass index (BMI) Body weight Respiratory rate Heart rate Oxygen saturation Body temperature Systolic And Diastolic Provider Name and Address Organization Details Last Updated DateTime 4 172.72 cm 36.8 kg/m2 791657. 18 g 18 /min 83 /min 99 % 98.2 [degF] 110/78 mm[Hg] EDMAR Gilman [place] - [facility] 4 10:49:52 Social History Question Answer Notes LastModified by Organizat ion Details LastModified Time Tobacco Smoking Status Current Every Day Smoker MARTA Cunha, [place] - [facility] 06/09/2020 10:05:57 Is Blood Transfusion Acceptable In An Emergency? Yes Information not available 06/09/2020 What Is Your Level Of Caffeine Consumption? Heavy Information not available 01/28/2020 How Much Tobacco Do You Chew? None Information not available 01/28/2020 In The 14 Days Before Symptom Onset, Have You Had Close Contact With A Laboratory-confir med COVID-19 While That Case Was Ill? No Information not available 04/16/2024 In The 14 Days Before Symptom Onset, Have You Had Close Contact With A Person Who Is Under Investigation For COVID-19 While That Person Was Ill? No Information not available 04/16/2024 Have You Been To An Area Known To Be High Risk For COVID-19? No Information not available 04/16/2024 What Type Of Diet Are You Following? REGULAR Information not available 01/28/2020 Which Illicit Or Recreational Drugs Have You Used? Marijuanna Information not available 06/09/2020 Education 11 Information no t available 06/09/2020 Live Alone Or With Others? With Others Information not available 06/09/2020 Marital Status Informatio n not available 11/27/2015 What Was The Date Of Your Most Recent Tobacco Screening? 04/16/2024 Information not available 04/16/2024 How Many Children Do You Have? 0 Information not available 06/09/2020 Performs Monthly Self-breast Exam? Yes Information no t available 06/09/2020 Do You Use Protection During Sex? No Information not available 06/09/2020 What Is Your Relationship Status? Information not available 06/09/2020 Seat Belts Used Routinely Yes Information not available 06/09/2020 Are You Sexually Active? Yes Information not available 06/09/2020 At What Age Did You Start Smoking Tobacco? 14 Information not available 06/09/2020 How Much Tobacco Do You Smoke? 0.25 PPD Information not available 04/16/2024 General Stress Level Medium Information not available 06/09/2020 Do You Use Sunscreen Routinely? No Information not available 06/09/2020 Has Tobacco Cessation Counseling Been Provided? Yes Information not available 04/16/2024 On What Date Was Tobacco Cessation Counseling Provided? 04/16/2024 Information not available 04/16/2024 How Many Years Have You Smoked Tobacco? 21 Information not available 06/09/2020 Sex: Female Functional Status Question Answer Note LastModified by Organizat ion Details LastModified Time Do you use any illicit or recreational drugs? Yes marijuana sometimes (04/16/24) Information not available 04/16/2024 Do you or have you ever used any other forms of tobacco or nicotine? No Information not available 04/16/2024 What is your level of alcohol consumption? None Information not available 11/27/2015 Do you or have you ever used smokeless tobacco? Never used smokeless tobacco Information not available 10/23/2019 Are you currently employed? Yes Information not available 06/09/2020 What is your occupation? [employer] Information not available 04/16/2024 Do you or have you ever used e-cigarettes or vape? Never used electronic cigarettes Information not available 10/23/2019 What is your exercise level? None Information not available 06/09/2020 Mental Status None recorded. Family History Relationship Description Onset Age of this Age Resolved Age Notes LastModified by Organization Details LastModified Time Mother Asthma Not available 01/21/2016 09:42:39 Mother Depressive disorder Not available 2015 09:42:39 Mother Diabetes mellitus Not available 2015 09:42:39 Mother Disorder of thyroid gland Not available 2015 09:42:39 Mother Heart disease Not available 2015 09:42:39 Mother Hypertensive disorder Not available 2015 09:42:39 Mother Hypercholest erolemia Not available 2015 09:42:39 Father Harmful pattern of use of alcohol Not available 2015 09:42:39 Father Malignant neoplasm of prostate Not available 2015 09:42:39 Sister Attention deficit hyperactivit y disorder Not available 01/20 09:42:39 Sister Depressive disorder Not available 2015 09:42:39 Sister Malignant neoplasm of ovary Not available 2015 09:42:39 Medical History Condition Response Coronary Artery Disease N Other Y Atrial Fibrillation N High Blood Pressure N Breast Cancer N Blood Clots N COPD Y Depression Y Lung Disease N Breast Problem N Anesthesia Complications N Headaches/Migraines N Anxiety Disorder Y Muscle, Joint, or Bone Problems Y Polyps N Infertility N Acid Reflux (GERD) Y Cancer N Stroke N ADHD N Endometriosis Y High Cholesterol N Liver Disease N Headaches N Schizophrenia N Thyroid Problems N Kidney or Bladder Problems N GI Problems N Acne Y Eating Disorder N Skin Problems N Anemia N Heart Attack (SD) N Diabetes N Ovarian Cancer N Blood Transfusions N Seizures/Epilepsy Y Abuse/Domestic Violence N Asthma Y Allergies Y Substance Abuse N Hepatitis N Heart Disease N Pre-Eclampsia N Heart Failure N Osteoporosis N Gynecological History Statement/Question Response Flow Moderate Date of LMP 04/03/2024 STIs/STDs N HPV Vaccine Y Age at Menarche 13 Current Control Method None Age at First Child Frequency of Cycle (Q days) 28 Sexually Active? Y Menses Monthly Y Date of Last Pap Smear Sexual Problems? N LMP Approximate Desired Control Method None Obstetrics History GPAL:G 0 P 0 0 0 0 Type Value Multiple Births 0 Full Term 0 Induced 0 Spontaneous 0 Premature 0 Living 0 Ectopics 0 Total 0 Immunizations Vaccine Type Date Status Note Provider Nam e and Address Organization Details Recorded Time Influenza, split virus, quadrivalent, preservative 0 completed Carissa Epps MD Attn: [employer] [place], [address], [place] - [facility] 05/06/2020 16:02:58 COVID-19, mRNA, LNP-S, PF, 100 mcg/0.5mL dose or 50 mcg/0.25mL dose 1 completed Castro Jackson MA null, [place] - [facility] 12/18/2020 11:49:52 COVID-19, mRNA, LNP-S, PF, 100 mcg/0.5mL dose or 50 mcg/0.25mL dose 1 completed Castro Jackson [place] null, [place] - [facility] 12/18/2020 11:50:19 SARS-COV-2 (COVID-19) vaccine, UNSPECIFIED 2 completed Roxy Lindquist RN null, [facility] 08/18/2021 11:13:23 Tdap 1 completed Castro Jackson MA null, [facility] 12/18/2020 16:33:00 Past Encounters Encounter ID Performer Location Encounter Start Date Encounter Closed Date Diagnosis/Indication Diagnosis SNOMED-CT Code Diagnosis ICD10 Code Diagnosis IMO Codes Diagnosis Note [id number] Chad Ritter [facility] [address] [place] [address] 11/27/2015 08:41:42 11/27/2015 18:25:27 Adult health examination 502400328 Z00.00 Seizure disorder 8551768 02 G40.909 History of depression 16 2360842 Z86.59 Tobacco user 441301276 Z 72.0 Chronic ob structive pulmonary disease 61915852 J44.9 [id number] Chad Ritter [facility] [address] [place] [address] 01/21/2016 09:13:33 01/22/2016 08:56:44 Eruption 567033728 R21 [id number] Carissa Epps MD [facility] [address] [place] [address] 10/23/2019 13:41:22 10/24/2019 16:27:09 Panic attack 547792525 F41.0 Gout 48583888 M10.9 Moderate r ecurrent major depression 85031272 F33.1 [id number] Carissa Epps MD [facility] [address] [place] [address] 11/06/2019 15:07:42 11/12/2019 06:10:05 Panic attack 148617867 F41.0 Vitamin D deficiency 347 99952 E55.9 Candidiasis of vagina 72 655282 B37.3 Moderate r ecurrent major depression 74393083 F33.1 Acute urin amber tract infection 364176421 N39.0 Pain of mu ltiple joints 53433207 M25.50 Moderate p ersistent asthma 704994680 J45.40 [id number] Carissa Epps MD [facility] [address] [facility] [place] [address] 11/14/2019 10:15:03 11/16/2019 00:38:11 Cyst of Bartholin's gland duct 41794493 N75.0 Rheumatoid arthritis 698 89227 M06.9 hands, knees, lower back pain [id number] Carissa Epps MD [facility] [address] [place] [address] 01/28/2020 09:22:51 02/04/2020 06:50:46 Moderate recurrent major depression 17901945 F33.1 [id number] Carissa Epps MD [facility] [address] [place] [address] 03/25/2020 12:02:05 03/31/2020 10:12:13 Moderate recurrent major depression 48900234 F33.1 [id number] Carissa Epps MD [facility] [address] [place] [address] 05/06/2020 15:53:09 05/12/2020 08:49:22 Endometriosis (clinical) 972969889 N80.9 Patient has chronic pelvic pain, has history of endometrio sis with infertilit y, has adopted six children and wants pain relief. I advised her to contact a MICROBIOLOGY ANALYST for possible surgery, maybe hormone manipulati on, for pain relief. (Patient is in a retirement stable lesbian marriage.) [id number] Thania Hull MD [facility] ([facility]) [address] [place] [address] 06/09/2020 08:15:10 06/11/2020 10:26:09 Endometriosis of pelvis 30390378 N80.3 Treatment options including ibuprofen, depo Lupron, and Orilissa as well as their side effects discussed. Pt. will continue ibuprofen but start before her period and take it up to every 6 hours with food as needed. Pt. has never had a pap smear. Pt. to schedule annual exam as soon as she can find a sitter for her children. [id number] Carissa Epps MD [facility] [address] [place] [address] 12/18/2020 11:15:45 12/26/2020 14:22:50 Active or passive immunization 573448686 Z23 Tuberculos is screening 332034584 Z11.7 [id number] MD Sergio CASIANO 14 IM [address] [facility] [address] [place] [address] 04/16/2024 10:21:41 04/20/2024 10:18:52 Body mass index 30+ - obesity 666181659 Z68.36 BMI 36.8.Repor ts has gained weight.Dis cussed lifestyle modificati ons including healthy diet and exercise.- Will get lipid panel and A1c to screen for underlying diabetes/h yperlipide adriane-TSH ordered as above Pain of left hand 131783 2116 28226 M79.642 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, s/p fasciotomy and course of OT/PT.Susp ect contractur e causing stiffening and underlying nerve injury resulting in pain.-Will trial gabapentin 300 mg as needed for pain-refer ral to OT for suspected contractur e-Will get CMP to evaluate renal function since starting on gabapentin Moderate p ersistent asthma 034635806 J45.40 History of asthma as a child.Unco ntrolled, requiring albuterol multiple times per day.Vahid prescott symptomati c with productive cough, chest tightness, and expiratory wheezing.S uspect some degree of underlying COPD given history of smoking since age 16 y/o.-Will get PFT-Will start on maintenanc e Dulera-May use Dulera 2 puffs as needed for when symptomati c Goiter 5992768 E04.8 History and physical exam consistent with goiter.-Wi ll get TSH reflex to free T4-Will order thyroid US Mixed anxi ety and depressive disorder 325892762 F41.8 DIDI score 7; mild anxietyPHQ score 5; mild depression Also reports inability to control anger resulting in outbursts/ irritabili ty.Discuss ed treatment options including therapy and medication s.Patient prefers to start with counsellin sunshine.-Will send referral for counseluri gonsalez Health Concerns Section Related Observation LastModified by Organization Detai ls LastModified Time None Recorded Concern Status LastModified by Organization Details LastModified Time None Recorded Advance Directives Directive None Recorded Payers Insurance Date Sequence Insurance Name Policy Number Policy Taveras Covered Member ID Taveras Member ID Guarantor Name 04/20/2024 [place] [facility] Teri Arvizuil [id number] Teri Lio 04/17/2024 1 [place] Teri Arvizuil [id number] Teri Lio 04/17/2024 2 [place] [facility] Teri Argyle [id number] Teri Lio 04/16/2024 1 [employer] [place] (MEDICARE REPLACEMENT HMO) [id number] Teri Vancil [id number] Teri Lio 03/29/2024 1 *SELF PAY* Sa ra Vaca 04/16/2024 1 [facility] - DOS ON OR AFTER 2020 - DUAL ELIGIBLE (MEDICARE REPLACEMENT/AD VANTAGE - HMO) [id number] Teri Vancil [id number] Teri Lio 03/04/2020 1 UNSPECIFIED REMIT PAYOR Teri Argyle 04/16/2024 2 [facility] (MEDICARE - MEDICAID REPLACEMENT HMO) [id number] Teri Vancil [id number] Teri Argyle 04/16/2024 [place] [facility] Teri Vancil [id number] Teri Lio 04/16/2024 1 [place] Teri Vancil [id number] Teri Lio 04/16/2024 2 [place] WHEN MEDICARE OR MEDICARE REPLACEMENT PRIMARY) Teri Vancil [id number] Teri Vaca Notes Date Note Type Note Provider Name and Address Organization Details Recorded Time 03/25/20 20 text/htm l Anxiety/DepressionReported by PatientHPIFor quality, patient reportsmood worseandincreased anxiety. For context, patient reportsmajor life stressors,family problems,legal problems,relationship stress,bereavement, andtobacco use. For associated symptoms, patient reportshigh irritability,anxiety,depressio n,grieving,restlessness/agitat ion,sleep disturbances,anhedonia,anxiety with muscle tension,feeling guilty,low self-esteem,social withdrawal, anddecreased effectiveness/productivitybut reportsdenies homicidal ideationsandno visual/auditory hallucinations. For severity, patient reportsdenies suicidal ideations,able to maintain relationships, anddoes not interfere with activities of daily living. For duration, patient reportssymptoms lasting over 2 weeks. For onset/timing, patient reportsgradualandstill present. For modifying factors, patient reportssocial supportandmedications as directed.ROS as noted in the HPI Carissa Epps MD Attn: Accounting,[address] [facility], [place], [address], [facility] 03/30/2020 15:51:46 05/06/20 20 text/htm l Pelvic PainReported by PatientHPIFor associated symptoms, patient reportsabdominal pain,back pain,decreased libido, andendometriosis. For location, patient reportsbilateral,suprapubic, andlower abdominal. For onset/timing, patient reports>6 months. For duration, patient reportspersistent. For quality, patient reportssharp,tender,stabbing,c ramping,fullness/bloating,swol baudilio, andworsening. For severity, patient reportssevereandinterferes with normal activities. For context, patient reportsoccurs with menstrual cycle. For alleviating factors, patient reportsnsaids(opiate pain medicine). For aggravating factors, patient reportsexerciseandmovement.ROS as noted in the HPI Carissa Epps MD Attn: Accounting,[address] [facility], [place], [address], [facility] 05/11/2020 18:56:34 06/09/20 20 text/htm l ROS as noted in the [facility] Telephone visit due to COVID-19 pandemic. Pt. is overdue for her annual exam but is more concerned with increasing severity of her endometriosis. She was diagnosed laparoscopically 6-7 years ago at [facility]. She does not remember the name of the doctor who did the surgery. She is taking ibuprofen twice daily when she has the pain. The pain usually starts right before her period and last through the period. Thania vasques, [facility] 06/09/2020 10:29:21 04/16/20 24 text/htm l Teri Vaca is a 39 y/o F presenting to the clinic to establish care. She has a history of asthma, and uses albuterol ProAir as needed. Typically she uses 2 puffs in the morning and 2 puffs at night, but sometimes has to use the inhaler up to 4 times per day.Has chronic cough, with production of clear sputum. Does report feeling chest tightness. She is also taking montelukast 10 mg nightly. Also reports pain and stiffness of left hand. She has had compartment syndrome of the left hand 2/2 crush injury a few years ago, S/p faciotomy at [facility]. Reports that when its cold, hand stiffens up, and becomes severely painful. throbbing and stabbing pain. Has intermittent neck swelling. every once in a while. Not painful. Also reporting difficulty with controlling anger, which comes out as outbursts/irritability. Past Medical HistoryAllergies: phenobarbital, depakote, sulfaMedications: only albuterol and montelukastPMH: asthma, seizure when younger (none in 20 years), chronic pancreatitisPSH: cholecystectomy, hand surgery (compartment syndrome) Family HistoryMom: COPD, DMDad: unknownSister: unknown history Social HistoryRelationship: for 11 years, same partner for 26 years total. 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 Smoking since 16 y/o.Drugs: MJ edible helps breathe better. Sexual HistorySexually active/# current partners: 1 partnerPrevious STD: noneLast time had STD testin year ago normal Health maintenancePap: 1.5 years ago done in [facility].Colonoscopy: done at [facility] 4 years ago. JESSIE BRANDT MD Attn: Accounting,[address] [place], [address], [facility] 04/17/2024 18:15:43 OBGyn Episode No OBEpisode recorded.
--- OUTSIDE RECORDS SUMMARY | 2025-06-03 16:02 | XMS_ITS | Encounter Summary ---
Author Organization [facility] Address [address] [place] [address] Phone Care Team Providers Care Correctional Captain Name Role Phone Provider, None Primary Care Provider Unavailabl e Leo Patterson MD Primary Care Provider [phone] Maria Fernanda Ortiz APRN, HEAT TREAT WORKER Primary Care Prov ider Irina Zelaya APRN, HEAT TREAT WORKER Unavailable [phone] Provider, None Primary Care Provider Unavailabl e Reason for Referral * PT/OT/ST (Routine) - Closed Specialty Diagnoses / Procedures Referred By Tess osorio Referred To Contact Occupational Therapy Diagnoses Pain in left hand Lorena Forman MD [address] [facility] [address] [place] [address] Phone: tel: fax: Referral ID Status Reason Start Date Expiration Date Visits Re quested Visits Authorized [id number] Closed 04/20/2024 50 50 Scheduling Instructions Encounter Details Date Type Department Care Team (Late st Contact Info) Description 04/20/2024 Transcribe Orders [facility] [address] [place] [address] Lorena Forman MD [address] [facility] [address] [place] [address] Pain in left hand (Primary Dx) Social History Tobacco Use Types Packs/Day Years Used Date Smoking Tobacco: Every Day Cigarettes Smokeless Tobacco: Never Alcohol Use Standard Drinks/Week Comments No 0 (1 standard drink = 0.6 oz pur e alcohol) PHQ-2 Answer Date Recorded PHQ-2 Score 0 03/30/2019 Comments No Sex and Gender Information Value Date Recorded Sex Assigned at Not on file Legal Sex Female 12:13 AM CDT Gender Identity Not on file Sexual Orientation Not on file documented as of this encounter Plan of Treatment Upcoming Encounters Date Type Department Care Team (Late st Contact Info) Description 08/05/2025 3:30 PM SERVER CASHIER Office Visit [facility]monology & [facility] Medicine - [place] [address] [place] [address] Irina Zelaya, SERGEY, HEAT TREAT WORKER [address] [facility] [address] [place] [address] Scheduled Referrals Name Type Priority Associated Diagnoses Order Schedule OCCUPATIONAL THERAPY REFERRAL Outpatient Referral Routine Pain in left hand Expected: 04/20/2024, Expires: 04/20/2025 documented as of this encounter Visit Diagnoses Diagnosis Pain in left hand- Primary documented in this encounter Additional Health Concerns Infection Onset Date Last Indicated Resolved Time COVID - 19 06/05/2024 06/05/2024 06/05/2024 9:27 AM SERVER CASHIER COVID - 19 06/18/2024 06/18/2024 06/18/2024 2:55 AM SERVER CASHIER COVID - 19 07/02/2024 07/02/2024 07/02/2024 1:30 PM SERVER CASHIER COVID - 19 08/23/2024 08/23/2024 08/23/2024 9:59 AM SERVER CASHIER COVID - 19 09/23/2024 09/23/2024 09/23/2024 7:28 AM CDT Respiratory Rule-Out 03/08/2025 03/08/2025 025 11:26 AM CDT Assessment Noted Time PHQ-9 Depression Total Score: 0 03/30/20 19 3:25 PM CDT documented as of this encounter Care Teams Correctional Captain Relationship Specialty Start Date End Date Provider, None [place] PCP - General 02/07/22 09/18/24 Leo Patterson MD [address] [facility] [address] [place] [address] PCP - General Family Medicine 09/19/24 10/03/24 Maria Fernanda Ortiz MAIL ROOM CLERK, HEAT TREAT WORKER [address] [place] [address] PCP - General Advanced Practice Nurse 10/05/24 Provider, None [place] PCP - General 02/18/25 Irina Zelaya, MAIL ROOM CLERK, HEAT TREAT WORKER [address] [facility] [address] [place] [address] Nurse Practitioner Advanced Practice Nurse 10/08/24 documented as of this encounter
--- OUTSIDE RECORDS SUMMARY | 2025-06-03 16:02 | XMS_ITS ---
Author Organization [facility] Address [address] [place] [address] Phone Care Team Providers Care Brokerage Clerk Name Role Phone Irina Zelaya APRN, RN CLINICAL REVIEW Unavailable Provider, None Primary Care Provider Bari Jj Chronic Condition Monitoring Status:Enrolled (Active) Start date:07/09/2024 Enrollment date:07/09/2024 Related social drivers of health:Intimate Partner Violence, Social Connections, Alcohol Use, Tobacco Use, Financial Resource Strain,Stress, Physical Activity, Food Insecurity, Transportation Needs, Housing Stability, Utilities Continued Care and Services Coordination
[2025-06-03] MEDS: IPRATROPIUM 0.5 MG/ALBUTEROL SULFATE 2.5 MG (BASE) AMPUL.NEB 3 ML INHALATION (16:09)
== END 2025-06-03 16:33 | disposition home or self-care (01) ==
PROVIDERS: Emergency Provider Registered Nurse
DX: J45.41 Moderate persistent asthma with (acute) exacerbation (principal); J44.9 Chronic obstructive pulmonary disease, unspecified; Z87.891 Personal history of nicotine dependence
CPT/HCPCS: 99213; G0463